=== PATIENT | male | born 1940 | race Caucasian/White ===

== ENCOUNTER → 2017-08-28 14:05 | Outpatient (CLI) | payer MEDICARE, BC, SELFPAY ==
[2017-08-28 19:21] LABS: Adenovirus F 40/41 Not Detected (Not Detect); Astrovirus Not Detected (Not Detect); Campylobacter Not Detected (Not Detect); Clostridium difficile toxin AB Not Detected (Not Detect); Cryptosporidium Not Detected (Not Detect); Cyclospora cayetanensis Not Detected (Not Detect); Entamoeba histolytica Not Detected (Not Detect); Enteroaggregative E.coli Not Detected (Not Detect); Enteropathogenic E.coli Not Detected (Not Detect); Enterotoxigenic E.coli It/st Not Detected (Not Detect); Giardia lamblia Not Detected (Not Detect); Norovirus GI/GII Not Detected (Not Detect); Plesiomonsa shigelloides Not Detected (Not Detect); Rotavirus A Not Detected (Not Detect); Salmonella Not Detected (Not Detect); Shiga-like toxin-prod E.coli Not Detected (Not Detect); Shigella/Enteroinvasive E.coli Not Detected (Not Detect); Vibrio Not Detected (Not Detect); Vibrio cholerae Not Detected (Not Detect); Yersinia enterocolitica Not Detected (Not Detect)
[2017-08-28 19:22] LABS: Sapovirus Not Detected
== END ==
PROVIDERS: Family Provider Internal Medicine; PCP Internal Medicine; Visit Provider Internal Medicine
DX: R19.7 Diarrhea, unspecified (principal)
CPT/HCPCS: 87507

== ENCOUNTER → 2017-08-29 11:15 | Outpatient (CLI) | payer MEDICARE, BC, SELFPAY ==
[2017-08-29 12:05] LABS: Add Manual Diff / Slide Review NO; Basophils Percent Auto 1.1 % (0-2); Eosinophils Percent Auto 2.3 % (2-4); Hematocrit 38.7 % (41-53); Lymphocytes Percent Auto 29.9 % (25-40); Mean Corpuscular HGB Conc 33.6 % (30-36); Mean Corpuscular Hemoglobin 31.8 PG (26-34); Mean Corpuscular Volume 94.7 fL (80-100); Monocytes Percent Auto 8.6 % (3-14); Neutrophils Absolute Auto 4100 /uL (3000-5900); Neutrophils Percent Auto 58.1 % (50-75); Platelet Count 179 X10^3/uL (150-400); Red Blood Cell Count 4.09 X10^6/uL (4.5-5.9); Red Cell Distribution Width 14.2 % (11.6-14.8)
[2017-08-29 12:19] LABS: Erythrocyte Sedimentation Rate 31 MM/HR (0-15)
[2017-08-29 12:57] LABS: Alanine Aminotransferase 24 IU/L (21-72); Albumin 3.8 g/dL (3.5-5.0); Albumin Globulin Ratio 1.3 (1.0-2.8); Alkaline Phosphatase 56 U/L (38-126); Aspartate Aminotransferase 23 IU/L (17-59); BUN Creatinine Ratio 19.1 (6-22); Blood Urea Nitrogen 21 mg/dL (9-20); C-Reactive Protein Quant 0.7 mg/dL (<1.0); Calcium 9.3 mg/dL (8.4-10.2); Carbon Dioxide 24 mmol/L (22-32); Chloride 109 mmol/L (98-107); Estimated Glomerular Filt Rate > 60.0 mL/min (>60); Glucose 98 mg/dL (80-110); HEMOLYSIS < 15 (0-50); Potassium 5.2 mmol/L (3.4-5.1); Sodium 144 mmol/L (137-145); Total Protein 6.8 g/dL (6.3-8.2)
== END ==
PROVIDERS: Family Provider Internal Medicine; PCP Internal Medicine; Visit Provider Internal Medicine
DX: R19.7 Diarrhea, unspecified (principal)
CPT/HCPCS: 36415; 80053; 84443; 85025; 85651; 86140

== ENCOUNTER 2017-09-20 11:59 | Emergency (ER) | payer MEDICARE, BC, SELFPAY ==
--- NOTE | 2017-09-20 12:04 | ED.LOWEXIN ---
HPI - Extremity Injury (Lower) <RAYA Conroy - Last Filed: 09/20/17 22:22> General Chief Complaint: Extremity Injury, Lower Stated Complaint: FELL YESTERDAY, SWOLLEN AND PAINFUL LEFT KNEE Time Seen by Provider: 09/20/17 12:09 History of Present Illness HPI Narrative: 77-year-old male with history of bilateral knee replacements here for of pain and swelling to his left knee. He states that he had a ground level fall yesterday when he was watering the garden accidentally tripping on the hose. He states that he fell on the the left knee with impact to the anterior lateral aspect and that he twisted the left knee when he fell. He denies any other injuries or complaints. Increased pain with motion of the left knee. He is currently using a cane to ambulate. MD complaint: knee injury Related Data Home Medications Medication Instructions Recorded Confirmed magnesium oxide 400 mg PO Q DAY #0 12/25/15 09/06/17 multivitamin [Multiple Vitamins] PO Q DAY #0 12/25/15 09/06/17 spironolacton-hydrochlorothiaz 1 tab PO QDAY #0 12/17/16 09/06/17 [Aldactazide] Previous Rx's Medication Instructions Recorded pantoprazole [Protonix] 40 mg PO BID #60 tab 08/04/17 gabapentin [Neurontin] 600 mg PO HS #30 tab 08/18/17 Allergies Allergy/AdvReac Type Severity Reaction Status Date / Time diphenhydramine Allergy Mild DISORIENTATION Verified 09/06/17 18:49 [From BENADRYL] AND CONFUSION oxycodone [OXYCODONE] Allergy Mild Verified 09/06/17 18:49 Review of Systems <RAYA Conroy - Last Filed: 09/20/17 22:22> Constitutional Denies chills, Denies fever(s), Denies lethargy and Denies weakness Eyes Denies change in vision, Denies eye discharge, Denies irritation and Denies loss of vision ENT Ears, Nose, Mouth, and Throat: Denies change in voice, Denies neck pain and Denies sore throat Cardiovascular Denies chest pain, Denies irregular heart rhythm, Denies lightheadedness, Denies palpitations, Denies dyspnea, Denies dyspnea on exertion and Denies orthopnea Respiratory Denies cough, Denies dyspnea, Denies dyspnea on exertion and Denies wheezing Gastrointestinal Gastrointestinal: Denies abdominal pain, Denies change in bowel habits, Denies diarrhea, Denies nausea and Denies vomiting Genitourinary Denies hematuria, Denies flank pain, Denies urinary incontinence and Denies urinary urgency Musculoskeletal Denies neck pain Comments: Left knee pain and swelling Integumentary/Breasts Denies pruritus, Denies erythema, Denies rash and Denies wounds Neurologic Denies confusion, Denies loss of vision and Denies weakness Psychiatric Denies anxiety, Denies confusion, Denies depression, Denies homicidal ideation and Denies suicidal ideation Endocrine Denies palpitations Hematologic/Lymphatic Denies easy bruising Allergic/Immunologic Denies wheezing Exam <RAYA Conroy - Last Filed: 09/20/17 22:22> Initial Vital Signs Initial Vital Signs: Vital Signs Temperature 97.3 F L 09/20/17 12:07 Pulse Rate 71 09/20/17 12:07 Respiratory Rate 20 09/20/17 12:07 Blood Pressure 145/72 H 09/20/17 12:07 Pulse Oximetry 95 09/20/17 12:07 Const General: cooperative and well developed Nutritional Appearance: well nourished Orientation: alert, awake, oriented x3 and not confused [facility] Mouth: oral mucosae normal and moist mucous membranes Eyes Conjunctivae: conjunctivae normal Sclera: sclerae normal Pupils: PERRL EOM: EOM intact bilaterally Resp Effort & Inspection: normal respiratory effort, able to speak in complete sentences, no respiratory distress and no use of accessory muscles Auscultation: clear to auscultation bilaterally, no rales, no rhonchi and no wheezes Cardio Rate: regular rate Rhythm: regular rhythm Heart Sounds: no click, no gallops, no murmurs and no rubs Pulses: normal peripheral pulses Skin General: no rashes or lesions noted, No jaundice and No petechiae Neuro General: alert, oriented x3, gait normal and no focal motor deficits Speech: speech normal Extrem Other: Swelling to the anterior portion of the left knee. No other deformities. No ecchymosis no erythema distal sensation is intact. Distal pulses intact. Distal range of motion is intact. Decreased range of motion to left knee due to pain. Negative anterior and posterior drawer sign negative varus and valgus stress test <Trever Stein DO - Last Filed: 09/21/17 07:28> Initial Vital Signs Initial Vital Signs: Vital Signs Temperature 97.3 F L 09/20/17 12:07 Pulse Rate 71 09/20/17 12:07 Respiratory Rate 20 09/20/17 12:07 Blood Pressure 145/72 H 09/20/17 12:07 Pulse Oximetry 95 09/20/17 12:07 Course <RAYA Conroy - Last Filed: 09/20/17 22:22> Orders Ordered: Discontinued Medications Acetaminophen (Tylenol) 650 mg PO NOW ONE Stop: 09/20/17 12:14 Last Admin: 09/20/17 12:27 Dose: 650 mg Vital Signs - 8 hr 09/20/17 12:07 Temperature 97.3 F L Pulse Rate 71 Respiratory Rate 20 Blood Pressure 145/72 H Pulse Oximetry 95 <Trever Stein DO - Last Filed: 09/21/17 07:28> Orders Ordered: Discontinued Medications Acetaminophen (Tylenol) 650 mg PO NOW ONE Stop: 09/20/17 12:14 Last Admin: 09/20/17 12:27 Dose: 650 mg Vital Signs - 8 hr 09/20/17 12:07 Temperature 97.3 F L Pulse Rate 71 Respiratory Rate 20 Blood Pressure 145/72 H Pulse Oximetry 95 MDM - Extremity Injury (Lower) <RAYA Conroy - Last Filed: 09/20/17 22:22> Imaging Data knee: Radiologist's impression: Patient: Edward Hernandez MR#: [id number] : 1940 Acct:[id number] Age/Sex: 77 / M Date of Service: 09/20/17 Loc: ED Accession Number: [id number] Procedure: XR knee LT 3V Ordering Provider: Rocco De La Cruz PROCEDURE: XR KNEE LT 3V INDICATIONS: Pain and swelling to left knee after glf yesterday TECHNIQUE: 3 views of the knee were acquired. COMPARISON: None. FINDINGS: Bones: No fractures or dislocations. Left total knee arthroplasty is intact. No suspicious bony lesions. Soft tissues: No joint effusion. No suspicious soft tissue calcifications. Surgical clips are present in the posterior soft tissues are IMPRESSION: No acute radiographic findings. If pain persists, repeat study in 5-7 days is recommended to exclude occult fracture. Dictated by: Nohelia Coles M.D. on 09/20/2017 at 12:45 Approved by: Nohelia Coles M.D. on 09/20/2017 at 12:[address] [facility] Narrative Medical decision making narrative: X-ray the left knee was obtained was negative for any acute findings. Signs and symptoms presents as sprain/contusion of the left knee. Offered knee immobilizer to patient patient refused. Follow up with primary care provider in 1 week for re-evaluation. If continued pain recommend reimaging or advanced imaging of the knee. [id number] Tylenol as needed for any discomfort. Ice and elevation to help with swelling for any worsening symptoms return to the emergency room. Discharge Plan Departure Patient Disposition: Home, Self-Care Clinical Impression: Left knee sprain Discharge Date/Time: 09/20/17 13:13 Interventions: ED Discharge Assessment Last Done: 09/20/17 13:11 Instructions: DI for Knee Sprain Activity Restrictions/Additional Instructions: X-ray the left knee was obtained was negative for any acute findings. Signs and symptoms presents as sprain/contusion of the left knee. Use cane to help with ambulation. Follow up with primary care provider in 1 week for re-evaluation. If continued pain recommend reimaging or advanced imaging of the knee. [id number] Tylenol as needed for any discomfort. Ice and elevation to help with swelling for any worsening symptoms return to the emergency room. Prescriptions: No Action multivitamin [Multiple Vitamins] Tablet PO Q DAY Qty: 0 RF: 0 magnesium oxide 400 MG tablet 400 mg PO Q DAY Qty: 0 RF: 0 spironolacton-hydrochlorothiaz [Aldactazide] 25 MG/25 MG tablet 1 tab PO QDAY Qty: 0 RF: 0 pantoprazole [Protonix] 40 mg tablet,delayed release (DR/EC) 40 mg PO BID Qty: 60 RF: 3 gabapentin [Neurontin] 600 mg tablet 600 mg PO HS Qty: 30 RF: 3 Referrals: Emir Moya MD [Primary Care Provider] - <Trever Stein DO - Last Filed: 09/21/17 07:28> Cosign ED Attending Alaina Attestation: I was available for consultation during this patient's emergency department encounter
[2017-09-20 12:07] VITALS: BP 145/72; PULSE 71; RESP 20; TEMP 36.3; O2SAT 95
--- NOTE | 2017-09-20 12:13 | DI.RAD.S_ITS ---
PROCEDURE: XR KNEE LT 3V INDICATIONS: Pain and swelling to left knee after glf yesterday TECHNIQUE: 3 views of the knee were acquired. COMPARISON: None. FINDINGS: Bones: No fractures or dislocations. Left total knee arthroplasty is intact. No suspicious bony lesions. Soft tissues: No joint effusion. No suspicious soft tissue calcifications. Surgical clips are present in the posterior soft tissues are IMPRESSION: No acute radiographic findings. If pain persists, repeat study in 5-7 days is recommended to exclude occult fracture. Dictated by: Nohelia Coles M.D. on 09/20/2017 at 12:45 Approved by: Nohelia Coles M.D. on 09/20/2017 at 12:46
--- NOTE | 2017-09-20 12:22 | ED_ITS ---
HPI - Extremity Injury (Lower) <RAYA Conroy - Last Filed: 09/20/17 22:22> General Chief Complaint: Extremity Injury, Lower Stated Complaint: FELL YESTERDAY, SWOLLEN AND PAINFUL LEFT KNEE Time Seen by Provider: 09/20/17 12:09 History of Present Illness HPI Narrative: 77-year-old male with history of bilateral knee replacements here for of pain and swelling to his left knee. He states that he had a ground level fall yesterday when he was watering the garden accidentally tripping on the hose. He states that he fell on the the left knee with impact to the anterior lateral aspect and that he twisted the left knee when he fell. He denies any other injuries or complaints. Increased pain with motion of the left knee. He is currently using a cane to ambulate. MD complaint: knee injury Related Data Home Medications Medication Instructions Recorded Confirmed magnesium oxide 400 mg PO Q DAY #0 12/25/15 09/06/17 multivitamin [Multiple Vitamins] PO Q DAY #0 12/25/15 09/06/17 spironolacton-hydrochlorothiaz 1 tab PO QDAY #0 12/17/16 09/06/17 [Aldactazide] Previous Rx's Medication Instructions Recorded pantoprazole [Protonix] 40 mg PO BID #60 tab 08/04/17 gabapentin [Neurontin] 600 mg PO HS #30 tab 08/18/17 Allergies Allergy/AdvReac Type Severity Reaction Status Date / Time diphenhydramine Allergy Mild DISORIENTATION Verified 09/06/17 18:49 [From BENADRYL] AND CONFUSION oxycodone [OXYCODONE] Allergy Mild Verified 09/06/17 18:49 Review of Systems <RAYA Conroy - Last Filed: 09/20/17 22:22> Constitutional Denies chills, Denies fever(s), Denies lethargy and Denies weakness Eyes Denies change in vision, Denies eye discharge, Denies irritation and Denies loss of vision ENT Ears, Nose, Mouth, and Throat: Denies change in voice, Denies neck pain and Denies sore throat Cardiovascular Denies chest pain, Denies irregular heart rhythm, Denies lightheadedness, Denies palpitations, Denies dyspnea, Denies dyspnea on exertion and Denies orthopnea Respiratory Denies cough, Denies dyspnea, Denies dyspnea on exertion and Denies wheezing Gastrointestinal Gastrointestinal: Denies abdominal pain, Denies change in bowel habits, Denies diarrhea, Denies nausea and Denies vomiting Genitourinary Denies hematuria, Denies flank pain, Denies urinary incontinence and Denies urinary urgency Musculoskeletal Denies neck pain Comments: Left knee pain and swelling Integumentary/Breasts Denies pruritus, Denies erythema, Denies rash and Denies wounds Neurologic Denies confusion, Denies loss of vision and Denies weakness Psychiatric Denies anxiety, Denies confusion, Denies depression, Denies homicidal ideation and Denies suicidal ideation Endocrine Denies palpitations Hematologic/Lymphatic Denies easy bruising Allergic/Immunologic Denies wheezing Exam <RAYA Conroy - Last Filed: 09/20/17 22:22> Initial Vital Signs Initial Vital Signs: Vital Signs Temperature 97.3 F L 09/20/17 12:07 Pulse Rate 71 09/20/17 12:07 Respiratory Rate 20 09/20/17 12:07 Blood Pressure 145/72 H 09/20/17 12:07 Pulse Oximetry 95 09/20/17 12:07 Const General: cooperative and well developed Nutritional Appearance: well nourished Orientation: alert, awake, oriented x3 and not confused [facility] Mouth: oral mucosae normal and moist mucous membranes Eyes Conjunctivae: conjunctivae normal Sclera: sclerae normal Pupils: PERRL EOM: EOM intact bilaterally Resp Effort & Inspection: normal respiratory effort, able to speak in complete sentences, no respiratory distress and no use of accessory muscles Auscultation: clear to auscultation bilaterally, no rales, no rhonchi and no wheezes Cardio Rate: regular rate Rhythm: regular rhythm Heart Sounds: no click, no gallops, no murmurs and no rubs Pulses: normal peripheral pulses Skin General: no rashes or lesions noted, No jaundice and No petechiae Neuro General: alert, oriented x3, gait normal and no focal motor deficits Speech: speech normal Extrem Other: Swelling to the anterior portion of the left knee. No other deformities. No ecchymosis no erythema distal sensation is intact. Distal pulses intact. Distal range of motion is intact. Decreased range of motion to left knee due to pain. Negative anterior and posterior drawer sign negative varus and valgus stress test <Trever Stein DO - Last Filed: 09/21/17 07:28> Initial Vital Signs Initial Vital Signs: Vital Signs Temperature 97.3 F L 09/20/17 12:07 Pulse Rate 71 09/20/17 12:07 Respiratory Rate 20 09/20/17 12:07 Blood Pressure 145/72 H 09/20/17 12:07 Pulse Oximetry 95 09/20/17 12:07 Course <RAYA Conroy - Last Filed: 09/20/17 22:22> Orders Ordered: Discontinued Medications Acetaminophen (Tylenol) 650 mg PO NOW ONE Stop: 09/20/17 12:14 Last Admin: 09/20/17 12:27 Dose: 650 mg Vital Signs - 8 hr 09/20/17 12:07 Temperature 97.3 F L Pulse Rate 71 Respiratory Rate 20 Blood Pressure 145/72 H Pulse Oximetry 95 <Trever Stein DO - Last Filed: 09/21/17 07:28> Orders Ordered: Discontinued Medications Acetaminophen (Tylenol) 650 mg PO NOW ONE Stop: 09/20/17 12:14 Last Admin: 09/20/17 12:27 Dose: 650 mg Vital Signs - 8 hr 09/20/17 12:07 Temperature 97.3 F L Pulse Rate 71 Respiratory Rate 20 Blood Pressure 145/72 H Pulse Oximetry 95 MDM - Extremity Injury (Lower) <RAYA Conroy - Last Filed: 09/20/17 22:22> Imaging Data knee: Radiologist's impression: Patient: Edward Hernandez MR#: [id number] : 1940 Acct:[id number] Age/Sex: 77 / M Date of Service: 09/20/17 Loc: ED Accession Number: [id number] Procedure: XR knee LT 3V Ordering Provider: Rocco De La Cruz PROCEDURE: XR KNEE LT 3V INDICATIONS: Pain and swelling to left knee after glf yesterday TECHNIQUE: 3 views of the knee were acquired. COMPARISON: None. FINDINGS: Bones: No fractures or dislocations. Left total knee arthroplasty is intact. No suspicious bony lesions. Soft tissues: No joint effusion. No suspicious soft tissue calcifications. Surgical clips are present in the posterior soft tissues are IMPRESSION: No acute radiographic findings. If pain persists, repeat study in 5 -7 days is recommended to exclude occult fracture. Dictated by: Nohelia Coles M.D. on 09/20/2017 at 12:45 Approved by: Nohelia Coles M.D. on 09/20/2017 at 12:46 [facility] Narrative Medical decision making narrative: X-ray the left knee was obtained was negative for any acute findings. Signs and symptoms presents as sprain/ contusion of the left knee. Offered knee immobilizer to patient patient refused. Follow up with primary care provider in 1 week for re-evaluation. If continued pain recommend reimaging or advanced imaging of the knee. Over-the- counter Tylenol as needed for any discomfort. Ice and elevation to help with swelling for any worsening symptoms return to the emergency room. Discharge Plan Departure Patient Disposition: Home, Self-Care Clinical Impression: Left knee sprain Discharge Date/Time: 09/20/17 13:13 Interventions: ED Discharge Assessment Last Done: 09/20/17 13:11 Instructions: DI for Knee Sprain Activity Restrictions/Additional Instructions: X-ray the left knee was obtained was negative for any acute findings. Signs and symptoms presents as sprain/contusion of the left knee. Use cane to help with ambulation. Follow up with primary care provider in 1 week for re- evaluation. If continued pain recommend reimaging or advanced imaging of the knee. [id number] Tylenol as needed for any discomfort. Ice and elevation to help with swelling for any worsening symptoms return to the emergency room. Prescriptions: No Action multivitamin [Multiple Vitamins] Tablet PO Q DAY Qty: 0 RF: 0 magnesium oxide 400 MG tablet 400 mg PO Q DAY Qty: 0 RF: 0 spironolacton-hydrochlorothiaz [Aldactazide] 25 MG/25 MG tablet 1 tab PO QDAY Qty: 0 RF: 0 pantoprazole [Protonix] 40 mg tablet,delayed release (DR/EC) 40 mg PO BID Qty: 60 RF: 3 gabapentin [Neurontin] 600 mg tablet 600 mg PO HS Qty: 30 RF: 3 Referrals: Emir Moya MD [Primary Care Provider] - <Trever Stein DO - Last Filed: 09/21/17 07:28> Cosign ED Attending Alaina Attestation: I was available for consultation during this patient's emergency department encounter
[2017-09-20] MEDS: ACETAMINOPHEN 325 MG TABLET 650 MG PO (12:27)
[2017-09-20 13:11] VITALS: BP 114/60; PULSE 60; RESP 18; O2SAT 96
== END 2017-09-20 13:13 | disposition home or self-care (01) ==
PROVIDERS: Emergency Provider Nurse Practitioner Family; Family Provider Internal Medicine; PCP Internal Medicine
DX: S83.92XA Sprain of unspecified site of left knee, initial encounter (principal); W01.0XXA Fall on same level from slipping, tripping and stumbling without subsequent striking against object, initial encounter
CPT/HCPCS: 73562; 99282; 99283

== ENCOUNTER 2018-04-14 10:30 | Outpatient (RCR) | payer MEDICARE, BC, SELFPAY ==
--- NOTE | 2018-08-12 18:00 | ST.OPDS ---
Care Team Visit Care Team Role Provider Type Emir Moya MD Attending Provider Physician Primary Care Provider Address: [address] [place] [address], [id number] [employer] Treatment Note [employer] Treatment Note Start: 03/03/18 17:12 Freq: Status: Active Protocol: Document 08/12/18 17:58 SOLO (Rec: 08/12/18 18:00 SOLO [email or web address]) Speech Pathology Treatment Note Visit Type Note Type Discharge Summary General Information General Information 78-yr-old male attended Speech Therapy for evaluation and treatment of aphasia and dementia, which was diagnosed 02/04/18 following neuropsychological evaluation by Dr. Makayla Almanzar Psy.D. Dr Bryanna Almanzar's report indicates Major neurocognitive disorder, possibly due to Alzheimer's disase, vascular disease, and/ or primary progressive aphasia . Among Dr. Almanzar's recommendations was referral to Speech Pathology for further language evaluation and treatment. However, the treatment/tools may be more directed toward his regarding how to facilitate their communication and may not be very useful with respect to exercises to restore Mr. Hernandez's communication abilities given his memory problems. PMHx: Coronary artery disease, essential hypertension, permanent pacemaker, idiopathic peripheral neuropathy, mixed hyperlipidemia, spinal stenosis, and stent in anterior descending branch of left coronary artery. Per pt/spouse report, the pt had a heart attack in Sep 2014 and subsequent stent placement and successful cardio rehab. The pt had quadruple bypass surgery in July 2015 and pacemaker placement in May 2016. They report marked changes in memory and cognition following heart procedures. Subjective Observations/Patient Presentation The pt was last seen 04/14/18. Minimal progress was made during skilled intervention. The pt stopped attending sessions and is discharged from intervention at this time .
== END 2018-08-21 10:39 | disposition home or self-care (01) ==
LOC: SP 10:30
PROVIDERS: PCP Internal Medicine; Visit Provider Internal Medicine
DX: R47.01 Aphasia (principal); R41.89 Other symptoms and signs involving cognitive functions and awareness
CPT/HCPCS: 96125

== ENCOUNTER 2018-06-25 11:15 | Outpatient (RCR) | payer MEDICARE, BC, SELFPAY ==
--- NOTE | 2018-02-26 11:15 | PT.OIE ---
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 (Chronic 12/01/14) Presence of stent in anterior descending branch of left coronary artery (Chronic 12/01/14) Spinal stenosis of lumbar region (Chronic 01/29/11) Elevated prostate specific antigen (PSA) (Chronic 06/18/16) History of permanent cardiac pacemaker placement (Chronic 06/18/16) History of deep venous thrombosis in adulthood (Resolved 07/16/16) Idiopathic peripheral neuropathy (Chronic 12/17/16) Systolic heart failure (Resolved) Past Surgical History (Last Reviewed 01/09/18 @ 12:21 by Emir Moya MD) History of carpal tunnel repair (Resolved) History of left knee replacement (Resolved 2009) History of right knee joint replacement (Resolved 2008) History of umbilical hernia repair (Resolved) 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) Status post laminectomy (Resolved) History of knee replacement Provider Visit Care Team Role Provider Type Emir Moya MD Attending Provider Physician Primary Care Provider Specialty: Internal Medicine Address: [address] [place] [address], [facility] Email: [email or web address] Physical Therapy Initial Evaluation PT-OP-A Visit Information Start: 03/01/18 16:29 Freq: Status: Active Protocol: Document 02/26/18 11:15 RCC (Rec: 03/01/18 16:54 RCC [email or web address]) Out-Patient Physical Therapy Visit Information Visit Information Visit Type Initial Evaluation Visit Start Time 10:30 Visit Stop Time 11:15 Total Visit Minutes 45 Visit Number 1 Number of RHEOSTAT ASSEMBLER Visits 0 Evaluation Information Evaluation Date 02/26/18 PT-OP-B Current Condition Start: 03/01/18 16:29 Freq: Status: Active Protocol: Document 02/26/18 11:15 RCC (Rec: 03/01/18 16:54 RCC [email or web address]) Current Condition History of Current Condition Onset Date progressively worsening over the past year Current Complaints weakness, difficulty with walking, imbalance History of Current Condition Pt is a 78 y/o male presenting to physical therapy with a c/ o progressive weakness and numbness due to neuropathy in bilateral feet which has decrease his ability to balance and ambulate outdoors. Pt's presents today with the pt, stating that he is having more difficulty walking outside. He had a fall at home in August of 2017 with increased LE pain. Pt would like to improve his walking ability to be able to take his dog to the dog park and walk for >10 minutes without high levels of fatigue. Treatment Goals Patient/Caregiver Goals be able to walk >10 min at a time, improve balance and strength Prior Functional Status Baseline Function- Gait modified indep. gait outdoors to dog park from home-10-15 min walk outside Current Functional Impairments (Reported) Functional Limitations- Mobility/Gait requires prolonged rest after ambulating <10 min, difficulty with uneven terrain. Personal Factors Other Personal Factors That May Effect memory impairment, hearing Therapy/Recovery impairment, progressing neuropathy BLE PT-OP-C Subjective Start: 03/01/18 16:29 Freq: Status: Active Protocol: Document 02/26/18 11:15 RCC (Rec: 03/01/18 16:54 [facility] [email or web address]) Patient Questionnaires Lower Extremity Functional Scale LEFS Score 37 LEFS Impairment 40 to 59% Impaired (Score 32- 47) PT-OP-D Balance Start: 03/01/18 16:29 Freq: Status: Active Protocol: Document 02/26/18 11:15 RCC (Rec: 03/01/18 16:54 [facility] [email or web address]) Balance Tests Semi-Tandem Standing Semi-Tandem Standing Balance 1 sec R posterior, 2 sec L posterior PT-OP-E Functional Tests Start: 03/01/18 16:29 Freq: Status: Active Protocol: Document 02/26/18 11:15 RCC (Rec: 03/01/18 16:54 RCC [email or web address]) Functional Tests 6 Minute Walk Test Distance 823 ft Device Used none Dynamic Gait Index (DGI) Score 13 DGI Impairment Rating 40 to <60% Impaired (Score 10- 14) PT-OP-G Mobility & Gait Start: 03/01/18 16:29 Freq: Status: Active Protocol: Document 02/26/18 11:15 RCC (Rec: 03/01/18 16:54 RCC [email or web address]) OP Gait Assessment Gait Deviations General Gait Pattern Decreased Stride Length Decreased Feet Clearance Flexed Trunk Wide Based Gait Factors Limiting Gait Function Factors Limiting Gait Function Decreased Activity Tolerance Decreased Sensation Decreased Strength Poor Balance PT-OP-H Neuro Start: 03/01/18 16:29 Freq: Status: Active Protocol: Document 02/26/18 11:15 RCC (Rec: 03/01/18 16:54 [facility] [email or web address]) Sensation Evaluation Comments Summary Comments impaired bilateral lower calf to feet PT-OP-J Posture/Palpation/Skin Start: 03/01/18 16:29 Freq: Status: Active Protocol: Document 02/26/18 11:15 RCC (Rec: 03/01/18 16:54 [facility] [email or web address]) Skin Assessment Other Assessments Skin Assessment Comments purplish color bilateral feet; callus lateral plantar surface 5th MT (closed) L foot PT-OP-M Strength Start: 03/01/18 16:29 Freq: Status: Active Protocol: Document 02/26/18 11:15 RCC (Rec: 03/01/18 16:54 [facility] [email or web address]) Hip Strength Hip Manual Muscle Testing Right Flexion (L2) 4 Good External Rotation 3+ Fair+ Internal Rotation 4 Good Left Flexion (L2) 4 Good External Rotation 3+ Fair+ Internal Rotation 4 Good Knee Strength Knee Manual Muscle Testing Right Flexion (S2) 4 Good Extension (L3) 5 Normal Left Flexion (S2) 4 Good Extension (L3) 4 Good Ankle/Foot Strength Ankle and Foot Manual Muscle Testing Right Dorsiflexion (L4) 4 Good Inversion 4 Good Eversion (S1) 3+ Fair+ Left Dorsiflexion (L4) 3+ Fair+ Inversion 3+ Fair+ Eversion (S1) 3+ Fair+ PT-OP-T Assessment and Plan Start: 03/01/18 16:29 Freq: Status: Active Protocol: Document 02/26/18 11:15 RCC (Rec: 03/01/18 16:54 RCC [email or web address]) Physical Therapy Assessment Rehab Potential Rehabilitation Potential Good Evaluation Complexity Number of Personal Factors/Comorbidities 3 or More Number of Body Systems Impaired 4 or More Clinical Presentation at Evaluation Evolving Impairments Impairments Activity Tolerance Balance Functional Activities Functional Mobility Gait Sensation Strength Goals Home exercise- walking program Impairment limited ability to ambulate outdoors. Sample Worker Goal (LTG) Pt will participate in daily ambulation outdoors on uneven terrain for at least 15 min to perform recreational activities such as taking/ walking his do to/from the dog park. LTG Duration 12 weeks 6 Minute Walk Test Impairment 823 ft Short Term Goal (STG) 950 ft or greater with 6 Minute Walk Test to demonstrate improvements with gait tolerance. STG Duration 6 weeks Usp Goal (LTG) 1100 ft or greater with 6 Minute Walk Test to demonstrate improvements with gait tolerance. LE weakness Impairment LE weakness to manual muscle testing (MMT) Usp Goal (LTG) LE MMT grossly 4+/5 or greater to improve tolerance to ambulating on uneven terrain. LTG Duration 12 weeks DGI Impairment Dynamic Gait Index 13/24 Short Term Goal (STG) Score of at least 16/24 with the DGI to demonstrate improvements with functional gait and balance STG Duration 6 weeks Usp Goal (LTG) Score of at least 19/24 with the DGI to demonstrate improvements with functional gait and balance, and decrease fall risk LTG Duration 12 weeks Assessment Summary Assessment Pt presents with bilateral LE weakness, numbness (neuropathy ), and impaired activity tolerance and balance. Pt's 6 Minute Walk Test is significantly limited, demonstrating decreased gait speed and activity tolerance, and is at high risk for falls with a score of 13/24 on the Dynamic Gait Index. Pt and spouse educated on safety at home and with ambulation, as well as the importance of daily checks of skin integrity of his bilateral feet. Pt would greatly benefit from skilled outpatient physical therapy to progress his balance, decrease fall risk, improve gait speed and activity tolerance, and LE strength. Physical Therapy Plan Frequency and Duration Frequency of Treatment 2x/Week Duration of Treatment 12 weeks Plan of Care Start Date 02/26/18 Plan of Care End Date 05/21/18 Therapeutic Interventions Therapeutic Interventions Aquatic Therapy Balance Training Gait Training Home Exercise Program Manual Therapy Neuromuscular Re-education Orthotic/Prosthetic Management Patient/Caregiver Education Self-Care/Home Management Therapeutic Activities Therapeutic Exercises Next Visit Focus/Plan Next Note Type Treatment Note Next Visit Plan ankle strengthening for HEP, standing balance for HEP; gait training.
--- NOTE | 2018-02-26 11:15 | PT.OPPOC ---
Current Diagnoses Polyneuropathy, unspecified (02/26/18) Other abnormalities of gait and mobility (02/26/18) Provider Visit Care Team Role Provider Type Emir Moya MD Attending Provider Physician Primary Care Provider Specialty: Internal Medicine Address: [address] [place] [address], [id number] Email: [email or web address] Plan Of Care PT-OP-T Assessment and Plan Start: 03/01/18 16:29 Freq: Status: Active Protocol: Document 02/26/18 11:15 RCC (Rec: 03/01/18 16:54 RCC [email or web address]) Physical Therapy Assessment Rehab Potential Rehabilitation Potential Good Evaluation Complexity Number of Personal Factors/Comorbidities 3 or More Number of Body Systems Impaired 4 or More Clinical Presentation at Evaluation Evolving Impairments Impairments Activity Tolerance Balance Functional Activities Functional Mobility Gait Sensation Strength Goals Home exercise- walking program Impairment limited ability to ambulate outdoors. Longterm Goal (LTG) Pt will participate in daily ambulation outdoors on uneven terrain for at least 15 min to perform recreational activities such as taking/ walking his do to/from the dog park. LTG Duration 12 weeks 6 Minute Walk Test Impairment 823 ft Short Term Goal (STG) 950 ft or greater with 6 Minute Walk Test to demonstrate improvements with gait tolerance. STG Duration 6 weeks Structured Cabling Technician Goal (LTG) 1100 ft or greater with 6 Minute Walk Test to demonstrate improvements with gait tolerance. LE weakness Impairment LE weakness to manual muscle testing (MMT) Structured Cabling Technician Goal (LTG) LE MMT grossly 4+/5 or greater to improve tolerance to ambulating on uneven terrain. LTG Duration 12 weeks DGI Impairment Dynamic Gait Index 13/24 Short Term Goal (STG) Score of at least 16/24 with the DGI to demonstrate improvements with functional gait and balance STG Duration 6 weeks Structured Cabling Technician Goal (LTG) Score of at least 19/24 with the DGI to demonstrate improvements with functional gait and balance, and decrease fall risk LTG Duration 12 weeks Assessment Summary Assessment Pt presents with bilateral LE weakness, numbness (neuropathy ), and impaired activity tolerance and balance. Pt's 6 Minute Walk Test is significantly limited, demonstrating decreased gait speed and activity tolerance, and is at high risk for falls with a score of 13/24 on the Dynamic Gait Index. Pt and spouse educated on safety at home and with ambulation, as well as the importance of daily checks of skin integrity of his bilateral feet. Pt would greatly benefit from skilled outpatient physical therapy to progress his balance, decrease fall risk, improve gait speed and activity tolerance, and LE strength. Physical Therapy Plan Frequency and Duration Frequency of Treatment 2x/Week Duration of Treatment 12 weeks Plan of Care Start Date 02/26/18 Plan of Care End Date 05/21/18 Therapeutic Interventions Therapeutic Interventions Aquatic Therapy Balance Training Gait Training Home Exercise Program Manual Therapy Neuromuscular Re-education Orthotic/Prosthetic Management Patient/Caregiver Education Self-Care/Home Management Therapeutic Activities Therapeutic Exercises Next Visit Focus/Plan Next Note Type Treatment Note Next Visit Plan ankle strengthening for HEP, standing balance for HEP; gait training. Plan of Care Dates Plan of Care Start Date 02/26/18 Plan of Care End Date 05/21/18 Please Sign and Return: I have reviewed this Plan of Care and certify that the skilled therapy services above are required to meet the patient?s needs. Physician Signature Date Printed Name and Credentials Clinical Instructor Signature Printed Name and Credentials
--- NOTE | 2018-03-04 12:00 | PT.OTN ---
Current Diagnoses Polyneuropathy, unspecified (03/04/18) Other abnormalities of gait and mobility (03/04/18) Physical Therapy Treatment Note PT-OP-A Visit Information Start: 03/01/18 16:29 Freq: Status: Active Protocol: Document 03/04/18 12:00 RCC (Rec: 03/04/18 13:39 RCC [email or web address]) Out-Patient Physical Therapy Visit Information Visit Information Visit Type Treatment Note Visit Start Time 11:16 Visit Stop Time 12:00 Total Visit Minutes 44 Visit Number 2 Number of CHILD NUTRITION ASSISTANT Visits 0 Evaluation Information Evaluation Date 02/26/18 PT-OP-B Current Condition Start: 03/01/18 16:29 Freq: Status: Active Protocol: Document 02/26/18 11:15 RCC (Rec: 03/01/18 16:54 RCC [email or web address]) Current Condition History of Current Condition Onset Date progressively worsening over the past year Current Complaints weakness, difficulty with walking, imbalance History of Current Condition Pt is a 78 y/o male presenting to physical therapy with a c/ o progressive weakness and numbness due to neuropathy in bilateral feet which has decrease his ability to balance and ambulate outdoors. Pt's presents today with the pt, stating that he is having more difficulty walking outside. He had a fall at home in August of 2017 with increased LE pain. Pt would like to improve his walking ability to be able to take his dog to the dog park and walk for >10 minutes without high levels of fatigue. Treatment Goals Patient/Caregiver Goals be able to walk >10 min at a time, improve balance and strength Prior Functional Status Baseline Function- Gait modified indep. gait outdoors to dog park from home-10-15 min walk outside Current Functional Impairments (Reported) Functional Limitations- Mobility/Gait requires prolonged rest after ambulating <10 min, difficulty with uneven terrain. Personal Factors Other Personal Factors That May Effect memory impairment, hearing Therapy/Recovery impairment, progressing neuropathy BLE PT-OP-C Subjective Start: 03/01/18 16:29 Freq: Status: Active Protocol: Document 03/04/18 12:00 RCC (Rec: 03/04/18 13:39 RCC [email or web address]) OP-PT Subjective Patient Comments Patient Comments Pt states he is doing well today. No new concerns. PT-OP-D Balance Start: 03/01/18 16:29 Freq: Status: Active Protocol: Document 02/26/18 11:15 RCC (Rec: 03/01/18 16:54 RCC [email or web address]) Balance Tests Semi-Tandem Standing Semi-Tandem Standing Balance 1 sec R posterior, 2 sec L posterior PT-OP-E Functional Tests Start: 03/01/18 16:29 Freq: Status: Active Protocol: Document 02/26/18 11:15 RCC (Rec: 03/01/18 16:54 [facility] [email or web address]) Functional Tests 6 Minute Walk Test Distance 823 ft Device Used none Dynamic Gait Index (DGI) Score 13 DGI Impairment Rating 40 to <60% Impaired (Score 10- 14) PT-OP-G Mobility & Gait Start: 03/01/18 16:29 Freq: Status: Active Protocol: Document 02/26/18 11:15 RCC (Rec: 03/01/18 16:54 RCC [email or web address]) OP Gait Assessment Gait Deviations General Gait Pattern Decreased Stride Length Decreased Feet Clearance Flexed Trunk Wide Based Gait Factors Limiting Gait Function Factors Limiting Gait Function Decreased Activity Tolerance Decreased Sensation Decreased Strength Poor Balance PT-OP-H Neuro Start: 03/01/18 16:29 Freq: Status: Active Protocol: Document 02/26/18 11:15 RCC (Rec: 03/01/18 16:54 RCC [email or web address]) Sensation Evaluation Comments Summary Comments impaired bilateral lower calf to feet PT-OP-J Posture/Palpation/Skin Start: 03/01/18 16:29 Freq: Status: Active Protocol: Document 02/26/18 11:15 RCC (Rec: 03/01/18 16:54 RCC [email or web address]) Skin Assessment Other Assessments Skin Assessment Comments purplish color bilateral feet; callus lateral plantar surface 5th MT (closed) L foot PT-OP-M Strength Start: 03/01/18 16:29 Freq: Status: Active Protocol: Document 02/26/18 11:15 RCC (Rec: 03/01/18 16:54 RCC [email or web address]) Hip Strength Hip Manual Muscle Testing Right Flexion (L2) 4 Good External Rotation 3+ Fair+ Internal Rotation 4 Good Left Flexion (L2) 4 Good External Rotation 3+ Fair+ Internal Rotation 4 Good Knee Strength Knee Manual Muscle Testing Right Flexion (S2) 4 Good Extension (L3) 5 Normal Left Flexion (S2) 4 Good Extension (L3) 4 Good Ankle/Foot Strength Ankle and Foot Manual Muscle Testing Right Dorsiflexion (L4) 4 Good Inversion 4 Good Eversion (S1) 3+ Fair+ Left Dorsiflexion (L4) 3+ Fair+ Inversion 3+ Fair+ Eversion (S1) 3+ Fair+ PT-OP-Q Treatments Start: 03/01/18 16:29 Freq: Status: Active Protocol: Document 03/04/18 12:00 RCC (Rec: 03/04/18 13:39 [facility] [email or web address]) Cardio Equipment Recumbent Elliptical (Biodex) Duration (Minutes) 6 Resistance 6 Gym Equipment Shuttle Balance 1 Details A/P normal stance, semi-tandem - perturbations and head mov't horiz and vert Reps/Duration 14 min Therapeutic Exercises Sitting Exercises 3 way ankle Sitting Exercise Name ankle DF, inv, eversion Side bilateral Resistance L1 eversion, L2 DF and inversion Reps/Minutes x10 each LE and direction Comments detailed discussion and demonstration with and pt during this time Neuro Re-Education Treatment Balance Activities NBOS Details narrow base of support Surface firm Reps/Duration 5 min Comments EO fixed head position, horizontal and vertical head movements Tandem standing Surface firm Equipment // bars Reps/Duration 3x30 sec each situation PT-OP-T Assessment and Plan Start: 03/01/18 16:29 Freq: Status: Active Protocol: Document 03/04/18 12:00 [facility] (Rec: 03/04/18 13:39 [facility] [email or web address]) Physical Therapy Assessment Assessment Summary Assessment Pt requires a decrease in resistance for ankle eversion bilaterally compared to DF and inversion. During balance training, pt required CGA with gait belt and occasional UE support due to loss of balance (especially with vertical head movements and perturbations). On firm ground , he tends to lose his balance posteriorly. Physical Therapy Plan Frequency and Duration Frequency of Treatment 2x/Week Duration of Treatment 12 weeks Plan of Care Start Date 02/26/18 Plan of Care End Date 05/21/18 Next Visit Focus/Plan Next Note Type Treatment Note Next Visit Plan progress standing balance- increase difficulty on Shuttle Balance, heel/toe walking, uneven surfaces with hurdles. Shuttle Recovery
--- NOTE | 2018-03-06 14:30 | PT.OTN ---
Current Diagnoses Polyneuropathy, unspecified (03/06/18) Other abnormalities of gait and mobility (03/06/18) Physical Therapy Treatment Note PT-OP-A Visit Information Start: 03/01/18 16:29 Freq: Status: Active Protocol: Document 03/06/18 14:30 [facility] (Rec: 03/07/18 15:10 [email or web address]) Out-Patient Physical Therapy Visit Information Visit Information Visit Type Treatment Note Visit Start Time 13:45 Visit Stop Time 14:30 Total Visit Minutes 45 Visit Number 3 Number of TERRA[employer]O POLISHER HELPER Visits 0 Evaluation Information Evaluation Date 02/26/18 PT-OP-B Current Condition Start: 03/01/18 16:29 Freq: Status: Active Protocol: Document 02/26/18 11:15 [facility] (Rec: 03/01/18 16:54 [facility] [email or web address]) Current Condition History of Current Condition Onset Date progressively worsening over the past year Current Complaints weakness, difficulty with walking, imbalance History of Current Condition Pt is a 78 y/o male presenting to physical therapy with a c/ o progressive weakness and numbness due to neuropathy in bilateral feet which has decrease his ability to balance and ambulate outdoors. Pt's presents today with the pt, stating that he is having more difficulty walking outside. He had a fall at home in August of 2017 with increased LE pain. Pt would like to improve his walking ability to be able to take his dog to the dog park and walk for >10 minutes without high levels of fatigue. Treatment Goals Patient/Caregiver Goals be able to walk >10 min at a time, improve balance and strength Prior Functional Status Baseline Function- Gait modified indep. gait outdoors to dog park from home-10-15 min walk outside Current Functional Impairments (Reported) Functional Limitations- Mobility/Gait requires prolonged rest after ambulating <10 min, difficulty with uneven terrain. Personal Factors Other Personal Factors That May Effect memory impairment, hearing Therapy/Recovery impairment, progressing neuropathy BLE PT-OP-C Subjective Start: 03/01/18 16:29 Freq: Status: Active Protocol: Document 03/06/18 14:30 [facility] (Rec: 03/07/18 15:10 [facility] [email or web address]) OP-PT Subjective Patient Comments Patient Comments Pt states that he tried to walk a little further today at the dog park, continues to require seated rest breaks. PT-OP-D Balance Start: 03/01/18 16:29 Freq: Status: Active Protocol: Document 02/26/18 11:15 [facility] (Rec: 03/01/18 16:54 [facility] [email or web address]) Balance Tests Semi-Tandem Standing Semi-Tandem Standing Balance 1 sec R posterior, 2 sec L posterior PT-OP-E Functional Tests Start: 03/01/18 16:29 Freq: Status: Active Protocol: Document 02/26/18 11:15 [facility] (Rec: 03/01/18 16:54 [facility] [email or web address]) Functional Tests 6 Minute Walk Test Distance 823 ft Device Used none Dynamic Gait Index (DGI) Score 13 DGI Impairment Rating 40 to <60% Impaired (Score 10- 14) PT-OP-G Mobility & Gait Start: 03/01/18 16:29 Freq: Status: Active Protocol: Document 02/26/18 11:15 [facility] (Rec: 03/01/18 16:54 [facility] [email or web address]) OP Gait Assessment Gait Deviations General Gait Pattern Decreased Stride Length Decreased Feet Clearance Flexed Trunk Wide Based Gait Factors Limiting Gait Function Factors Limiting Gait Function Decreased Activity Tolerance Decreased Sensation Decreased Strength Poor Balance PT-OP-H Neuro Start: 03/01/18 16:29 Freq: Status: Active Protocol: Document 02/26/18 11:15 [facility] (Rec: 03/01/18 16:54 [facility] [email or web address]) Sensation Evaluation Comments Summary Comments impaired bilateral lower calf to feet PT-OP-J Posture/Palpation/Skin Start: 03/01/18 16:29 Freq: Status: Active Protocol: Document 02/26/18 11:15 [facility] (Rec: 03/01/18 16:54 [facility] [email or web address]) Skin Assessment Other Assessments Skin Assessment Comments purplish color bilateral feet; callus lateral plantar surface 5th MT (closed) L foot PT-OP-M Strength Start: 03/01/18 16:29 Freq: Status: Active Protocol: Document 02/26/18 11:15 [facility] (Rec: 03/01/18 16:54 [facility] [email or web address]) Hip Strength Hip Manual Muscle Testing Right Flexion (L2) 4 Good External Rotation 3+ Fair+ Internal Rotation 4 Good Left Flexion (L2) 4 Good External Rotation 3+ Fair+ Internal Rotation 4 Good Knee Strength Knee Manual Muscle Testing Right Flexion (S2) 4 Good Extension (L3) 5 Normal Left Flexion (S2) 4 Good Extension (L3) 4 Good Ankle/Foot Strength Ankle and Foot Manual Muscle Testing Right Dorsiflexion (L4) 4 Good Inversion 4 Good Eversion (S1) 3+ Fair+ Left Dorsiflexion (L4) 3+ Fair+ Inversion 3+ Fair+ Eversion (S1) 3+ Fair+ PT-OP-Q Treatments Start: 03/01/18 16:29 Freq: Status: Active Protocol: Document 03/06/18 14:30 [facility] (Rec: 03/07/18 15:10 [facility] [email or web address]) Cardio Equipment Recumbent Elliptical (Biodex) Duration (Minutes) 8 Resistance 6 Gym Equipment Shuttle Recovery Unilateral Squats Resistance 50 lbs Shuttle Recovery Platform Stable Reps/Time to fatigue Bilateral Squats Resistance 75 lbs Shuttle Recovery Platform Stable Reps/Time to fatigue Shuttle Balance 1 Details A/P normal stance, semi-tandem - perturbations and head mov't horiz and vert Reps/Duration 15 min Comments blue setting Neuro Re-Education Treatment Other Activities balloon volley Details firm ground- balloon volley with UE and LEs Reps/Duration 6 min Comments in // bars hurdles Details hurdles with blue foam and black pod Reps/Duration 6 laps in // bars BAPS Details L3 CW/CCW, AP, ML Reps/Duration 10 min Comments manual assist to maintain proper knee alignment PT-OP-T Assessment and Plan Start: 03/01/18 16:29 Freq: Status: Active Protocol: Document 03/06/18 14:30 [facility] (Rec: 03/07/18 15:10 [facility] [email or web address]) Physical Therapy Assessment Assessment Summary Assessment Pt required manual assistance to maintain appropriate LE positioning on BAPS board, and continues to require visual input to know where his feet are in space. Pt fatigued after session, but able to tolerate increased time on Biodex and leg press without c /o pain. Physical Therapy Plan Frequency and Duration Frequency of Treatment 2x/Week Duration of Treatment 12 weeks Plan of Care Start Date 02/26/18 Plan of Care End Date 05/21/18 Next Visit Focus/Plan Next Note Type Treatment Note Next Visit Plan cont LE strengthening, proprioception and balance; progress toward getting on/off floor (transfer)
--- NOTE | 2018-03-11 14:27 | PT.OTN ---
Current Diagnoses Polyneuropathy, unspecified (03/11/18) Other abnormalities of gait and mobility (03/11/18) Physical Therapy Treatment Note PT-OP-A Visit Information Start: 03/01/18 16:29 Freq: Status: Active Protocol: Document 03/11/18 14:27 [facility] (Rec: 03/11/18 15:30 [facility] [email or web address]) Out-Patient Physical Therapy Visit Information Visit Information Visit Type Treatment Note Visit Start Time 13:45 Visit Stop Time 14:27 Total Visit Minutes 42 Visit Number 4 Number of INDUSTRIAL SAFETY [employer] HEALTH TECHNICIAN Visits 0 Evaluation Information Evaluation Date 02/26/18 PT-OP-B Current Condition Start: 03/01/18 16:29 Freq: Status: Active Protocol: Document 02/26/18 11:15 [facility] (Rec: 03/01/18 16:54 [facility] [email or web address]) Current Condition History of Current Condition Onset Date progressively worsening over the past year Current Complaints weakness, difficulty with walking, imbalance History of Current Condition Pt is a 78 y/o male presenting to physical therapy with a c/ o progressive weakness and numbness due to neuropathy in bilateral feet which has decrease his ability to balance and ambulate outdoors. Pt's presents today with the pt, stating that he is having more difficulty walking outside. He had a fall at home in August of 2017 with increased LE pain. Pt would like to improve his walking ability to be able to take his dog to the dog park and walk for >10 minutes without high levels of fatigue. Treatment Goals Patient/Caregiver Goals be able to walk >10 min at a time, improve balance and strength Prior Functional Status Baseline Function- Gait modified indep. gait outdoors to dog park from home-10-15 min walk outside Current Functional Impairments (Reported) Functional Limitations- Mobility/Gait requires prolonged rest after ambulating <10 min, difficulty with uneven terrain. Personal Factors Other Personal Factors That May Effect memory impairment, hearing Therapy/Recovery impairment, progressing neuropathy BLE PT-OP-C Subjective Start: 03/01/18 16:29 Freq: Status: Active Protocol: Document 03/11/18 14:27 [facility] (Rec: 03/11/18 15:30 [facility] [email or web address]) OP-PT Subjective Patient Comments Patient Comments Pt denies performing his HEP over the past week. PT-OP-D Balance Start: 03/01/18 16:29 Freq: Status: Active Protocol: Document 02/26/18 11:15 [facility] (Rec: 03/01/18 16:54 [facility] [email or web address]) Balance Tests Semi-Tandem Standing Semi-Tandem Standing Balance 1 sec R posterior, 2 sec L posterior PT-OP-E Functional Tests Start: 03/01/18 16:29 Freq: Status: Active Protocol: Document 02/26/18 11:15 [facility] (Rec: 03/01/18 16:54 [facility] [email or web address]) Functional Tests 6 Minute Walk Test Distance 823 ft Device Used none Dynamic Gait Index (DGI) Score 13 DGI Impairment Rating 40 to <60% Impaired (Score 10- 14) PT-OP-G Mobility & Gait Start: 03/01/18 16:29 Freq: Status: Active Protocol: Document 02/26/18 11:15 [facility] (Rec: 03/01/18 16:54 [facility] [email or web address]) OP Gait Assessment Gait Deviations General Gait Pattern Decreased Stride Length Decreased Feet Clearance Flexed Trunk Wide Based Gait Factors Limiting Gait Function Factors Limiting Gait Function Decreased Activity Tolerance Decreased Sensation Decreased Strength Poor Balance PT-OP-H Neuro Start: 03/01/18 16:29 Freq: Status: Active Protocol: Document 02/26/18 11:15 [facility] (Rec: 03/01/18 16:54 [facility] [email or web address]) Sensation Evaluation Comments Summary Comments impaired bilateral lower calf to feet PT-OP-J Posture/Palpation/Skin Start: 03/01/18 16:29 Freq: Status: Active Protocol: Document 02/26/18 11:15 [facility] (Rec: 03/01/18 16:54 [facility] [email or web address]) Skin Assessment Other Assessments Skin Assessment Comments purplish color bilateral feet; callus lateral plantar surface 5th MT (closed) L foot PT-OP-M Strength Start: 03/01/18 16:29 Freq: Status: Active Protocol: Document 02/26/18 11:15 [facility] (Rec: 03/01/18 16:54 [facility] [email or web address]) Hip Strength Hip Manual Muscle Testing Right Flexion (L2) 4 Good External Rotation 3+ Fair+ Internal Rotation 4 Good Left Flexion (L2) 4 Good External Rotation 3+ Fair+ Internal Rotation 4 Good Knee Strength Knee Manual Muscle Testing Right Flexion (S2) 4 Good Extension (L3) 5 Normal Left Flexion (S2) 4 Good Extension (L3) 4 Good Ankle/Foot Strength Ankle and Foot Manual Muscle Testing Right Dorsiflexion (L4) 4 Good Inversion 4 Good Eversion (S1) 3+ Fair+ Left Dorsiflexion (L4) 3+ Fair+ Inversion 3+ Fair+ Eversion (S1) 3+ Fair+ PT-OP-Q Treatments Start: 03/01/18 16:29 Freq: Status: Active Protocol: Document 03/11/18 14:27 [facility] (Rec: 03/11/18 15:30 [facility] [email or web address]) Cardio Equipment Recumbent Elliptical (Biodex) Duration (Minutes) 10 Resistance 6 Gym Equipment Shuttle Recovery Unilateral Squats Resistance 50 lbs Shuttle Recovery Platform Stable Reps/Time to fatigue Bilateral Squats Resistance 75 lbs Shuttle Recovery Platform Stable Reps/Time to fatigue Shuttle Balance 1 Details A/P normal stance, semi-tandem , lateral normal stance Reps/Duration 13 min Comments RED Therapeutic Exercises Sitting Exercises tilt board Sitting Exercise Name tilt board ankle AROM- A/P, M/ L Side bilateral Reps/Minutes 4 min Standing Exercises HS stretch Side bilateral Equipment Used stairs Reps/Minutes 2x15 sec each HC stretch Side bilateral Equipment Used DEMIAN Reps/Minutes 2x1 min Heel raises Side bilateral Reps/Minutes 2x10 Neuro Re-Education Treatment Other Activities heel toe gait Details heel-toe gait Reps/Duration 6 laps in // bars uneven surfaces Details gait on various pods and foam pads with yoga mat over top Reps/Duration 10 laps in // bars Comments UE required PT-OP-T Assessment and Plan Start: 03/01/18 16:29 Freq: Status: Active Protocol: Document 03/11/18 14:27 [facility] (Rec: 03/11/18 15:30 [facility] [email or web address]) Physical Therapy Assessment Assessment Summary Assessment Pt requires UE assistance >90% of the time and demonstrates frequent step-to gait pattern with uneven gait performance today. Pt fatigues quickly with Shuttle Recovery and Balance. Physical Therapy Plan Frequency and Duration Frequency of Treatment 2x/Week Duration of Treatment 12 weeks Plan of Care Start Date 02/26/18 Plan of Care End Date 05/21/18 Next Visit Focus/Plan Next Note Type Treatment Note Next Visit Plan progress toward floor/ground transfers, cont. ankle and LE strengthening
--- NOTE | 2018-03-13 14:30 | PT.OTN ---
Current Diagnoses Polyneuropathy, unspecified (03/13/18) Other abnormalities of gait and mobility (03/13/18) Physical Therapy Treatment Note PT-OP-A Visit Information Start: 03/01/18 16:29 Freq: Status: Active Protocol: Document 03/13/18 14:30 [facility] (Rec: 03/14/18 13:28 [facility] [email or web address]) Out-Patient Physical Therapy Visit Information Visit Information Visit Type Treatment Note Visit Start Time 13:45 Visit Stop Time 14:30 Total Visit Minutes 45 Visit Number 5 Number of CHILD WATCH ATTENDANT Visits 0 Evaluation Information Evaluation Date 02/26/18 PT-OP-B Current Condition Start: 03/01/18 16:29 Freq: Status: Active Protocol: Document 02/26/18 11:15 [facility] (Rec: 03/01/18 16:54 [facility] [email or web address]) Current Condition History of Current Condition Onset Date progressively worsening over the past year Current Complaints weakness, difficulty with walking, imbalance History of Current Condition Pt is a 78 y/o male presenting to physical therapy with a c/ o progressive weakness and numbness due to neuropathy in bilateral feet which has decrease his ability to balance and ambulate outdoors. Pt's presents today with the pt, stating that he is having more difficulty walking outside. He had a fall at home in August of 2017 with increased LE pain. Pt would like to improve his walking ability to be able to take his dog to the dog park and walk for >10 minutes without high levels of fatigue. Treatment Goals Patient/Caregiver Goals be able to walk >10 min at a time, improve balance and strength Prior Functional Status Baseline Function- Gait modified indep. gait outdoors to dog park from home-10-15 min walk outside Current Functional Impairments (Reported) Functional Limitations- Mobility/Gait requires prolonged rest after ambulating <10 min, difficulty with uneven terrain. Personal Factors Other Personal Factors That May Effect memory impairment, hearing Therapy/Recovery impairment, progressing neuropathy BLE PT-OP-C Subjective Start: 03/01/18 16:29 Freq: Status: Active Protocol: Document 03/13/18 14:30 [facility] (Rec: 03/14/18 13:28 [facility] [email or web address]) OP-PT Subjective Patient Comments Patient Comments Ed states he has been working on keeping his toes forward since his last visit. He was sore but no c/o pain after last session. PT-OP-D Balance Start: 03/01/18 16:29 Freq: Status: Active Protocol: Document 02/26/18 11:15 [facility] (Rec: 03/01/18 16:54 [facility] [email or web address]) Balance Tests Semi-Tandem Standing Semi-Tandem Standing Balance 1 sec R posterior, 2 sec L posterior PT-OP-E Functional Tests Start: 03/01/18 16:29 Freq: Status: Active Protocol: Document 02/26/18 11:15 [facility] (Rec: 03/01/18 16:54 [facility] [email or web address]) Functional Tests 6 Minute Walk Test Distance 823 ft Device Used none Dynamic Gait Index (DGI) Score 13 DGI Impairment Rating 40 to <60% Impaired (Score 10- 14) PT-OP-G Mobility & Gait Start: 03/01/18 16:29 Freq: Status: Active Protocol: Document 02/26/18 11:15 [facility] (Rec: 03/01/18 16:54 [facility] [email or web address]) OP Gait Assessment Gait Deviations General Gait Pattern Decreased Stride Length Decreased Feet Clearance Flexed Trunk Wide Based Gait Factors Limiting Gait Function Factors Limiting Gait Function Decreased Activity Tolerance Decreased Sensation Decreased Strength Poor Balance PT-OP-H Neuro Start: 03/01/18 16:29 Freq: Status: Active Protocol: Document 02/26/18 11:15 [facility] (Rec: 03/01/18 16:54 [facility] [email or web address]) Sensation Evaluation Comments Summary Comments impaired bilateral lower calf to feet PT-OP-J Posture/Palpation/Skin Start: 03/01/18 16:29 Freq: Status: Active Protocol: Document 02/26/18 11:15 [facility] (Rec: 03/01/18 16:54 [facility] [email or web address]) Skin Assessment Other Assessments Skin Assessment Comments purplish color bilateral feet; callus lateral plantar surface 5th MT (closed) L foot PT-OP-M Strength Start: 03/01/18 16:29 Freq: Status: Active Protocol: Document 02/26/18 11:15 [facility] (Rec: 03/01/18 16:54 [facility] [email or web address]) Hip Strength Hip Manual Muscle Testing Right Flexion (L2) 4 Good External Rotation 3+ Fair+ Internal Rotation 4 Good Left Flexion (L2) 4 Good External Rotation 3+ Fair+ Internal Rotation 4 Good Knee Strength Knee Manual Muscle Testing Right Flexion (S2) 4 Good Extension (L3) 5 Normal Left Flexion (S2) 4 Good Extension (L3) 4 Good Ankle/Foot Strength Ankle and Foot Manual Muscle Testing Right Dorsiflexion (L4) 4 Good Inversion 4 Good Eversion (S1) 3+ Fair+ Left Dorsiflexion (L4) 3+ Fair+ Inversion 3+ Fair+ Eversion (S1) 3+ Fair+ PT-OP-Q Treatments Start: 03/01/18 16:29 Freq: Status: Active Protocol: Document 03/13/18 14:30 [facility] (Rec: 03/14/18 13:28 [facility] [email or web address]) Cardio Equipment Recumbent Stepper (Sci-Fit) Duration (Minutes) 10 Resistance 4 Seat Position 17 Gym Equipment Shuttle Recovery Unilateral Squats Resistance 50 lbs Shuttle Recovery Platform Stable Reps/Time to fatigue Bilateral Squats Resistance 75 lbs Shuttle Recovery Platform Stable Reps/Time to fatigue Shuttle Balance 1 Details A/P normal stance, semi-tandem , lateral normal stance Reps/Duration 12 min Comments RED Sport Cord forward and backward walking Exercise Details forward and backward gait Cord/Resistance blue/white Reps/Duration 5 each direction Comments Min A for balance Neuro Re-Education Treatment Balance Activities SLS Surface firm Equipment // bars Reps/Duration 1 min each (multiple attempts required) Tandem standing Surface firm Equipment // bars Reps/Duration 3x30 sec each situation Other Activities heel toe gait Details heel-toe gait Reps/Duration 4 laps in // bars uneven surfaces Details gait on various pods and foam pads with yoga mat over top Reps/Duration 10 laps in // bars Comments UE required PT-OP-T Assessment and Plan Start: 03/01/18 16:29 Freq: Status: Active Protocol: Document 03/13/18 14:30 [facility] (Rec: 03/14/18 13:28 [facility] [email or web address]) Physical Therapy Assessment Assessment Summary Assessment Pt with improved ankle strategy on Shuttle Balance today, but still requires occasional UE assistance. He is unable to hold SL balance without some UE assistance at this time, and required Min A for balance when walking with sports cord resistance. Pt was fatigued, but able to ambulate at his baseline level after session. Physical Therapy Plan Frequency and Duration Frequency of Treatment 2x/Week Duration of Treatment 12 weeks Plan of Care Start Date 02/26/18 Plan of Care End Date 05/21/18 Next Visit Focus/Plan Next Note Type Treatment Note Next Visit Plan attempt floor transfer, lunges
--- NOTE | 2018-03-18 14:27 | PT.OTN ---
Current Diagnoses Polyneuropathy, unspecified (03/18/18) Other abnormalities of gait and mobility (03/18/18) Physical Therapy Treatment Note PT-OP-A Visit Information Start: 03/01/18 16:29 Freq: Status: Active Protocol: Document 03/18/18 14:27 [facility] (Rec: 03/18/18 16:03 [email or web address]) Out-Patient Physical Therapy Visit Information Visit Information Visit Type Treatment Note Visit Start Time 13:45 Visit Stop Time 14:27 Total Visit Minutes 42 Visit Number 6 Number of SALES ENGINEER ACCOUNT MANAGER Visits 0 Evaluation Information Evaluation Date 02/26/18 PT-OP-B Current Condition Start: 03/01/18 16:29 Freq: Status: Active Protocol: Document 02/26/18 11:15 [facility] (Rec: 03/01/18 16:54 [facility] [email or web address]) Current Condition History of Current Condition Onset Date progressively worsening over the past year Current Complaints weakness, difficulty with walking, imbalance History of Current Condition Pt is a 78 y/o male presenting to physical therapy with a c/ o progressive weakness and numbness due to neuropathy in bilateral feet which has decrease his ability to balance and ambulate outdoors. Pt's presents today with the pt, stating that he is having more difficulty walking outside. He had a fall at home in August of 2017 with increased LE pain. Pt would like to improve his walking ability to be able to take his dog to the dog park and walk for >10 minutes without high levels of fatigue. Treatment Goals Patient/Caregiver Goals be able to walk >10 min at a time, improve balance and strength Prior Functional Status Baseline Function- Gait modified indep. gait outdoors to dog park from home-10-15 min walk outside Current Functional Impairments (Reported) Functional Limitations- Mobility/Gait requires prolonged rest after ambulating <10 min, difficulty with uneven terrain. Personal Factors Other Personal Factors That May Effect memory impairment, hearing Therapy/Recovery impairment, progressing neuropathy BLE PT-OP-C Subjective Start: 03/01/18 16:29 Freq: Status: Active Protocol: Document 03/18/18 14:27 [facility] (Rec: 03/18/18 16:03 [facility] [email or web address]) OP-PT Subjective Patient Comments Patient Comments Pt stats his legs are a little tired today for no particular reason. His is helping him with his HEP occasionally. PT-OP-D Balance Start: 03/01/18 16:29 Freq: Status: Active Protocol: Document 02/26/18 11:15 [facility] (Rec: 03/01/18 16:54 [facility] [email or web address]) Balance Tests Semi-Tandem Standing Semi-Tandem Standing Balance 1 sec R posterior, 2 sec L posterior PT-OP-E Functional Tests Start: 03/01/18 16:29 Freq: Status: Active Protocol: Document 02/26/18 11:15 [facility] (Rec: 03/01/18 16:54 [facility] [email or web address]) Functional Tests 6 Minute Walk Test Distance 823 ft Device Used none Dynamic Gait Index (DGI) Score 13 DGI Impairment Rating 40 to <60% Impaired (Score 10- 14) PT-OP-G Mobility & Gait Start: 03/01/18 16:29 Freq: Status: Active Protocol: Document 02/26/18 11:15 [facility] (Rec: 03/01/18 16:54 [facility] [email or web address]) OP Gait Assessment Gait Deviations General Gait Pattern Decreased Stride Length Decreased Feet Clearance Flexed Trunk Wide Based Gait Factors Limiting Gait Function Factors Limiting Gait Function Decreased Activity Tolerance Decreased Sensation Decreased Strength Poor Balance PT-OP-H Neuro Start: 03/01/18 16:29 Freq: Status: Active Protocol: Document 02/26/18 11:15 [facility] (Rec: 03/01/18 16:54 [facility] [email or web address]) Sensation Evaluation Comments Summary Comments impaired bilateral lower calf to feet PT-OP-J Posture/Palpation/Skin Start: 03/01/18 16:29 Freq: Status: Active Protocol: Document 02/26/18 11:15 [facility] (Rec: 03/01/18 16:54 [facility] [email or web address]) Skin Assessment Other Assessments Skin Assessment Comments purplish color bilateral feet; callus lateral plantar surface 5th MT (closed) L foot PT-OP-M Strength Start: 03/01/18 16:29 Freq: Status: Active Protocol: Document 02/26/18 11:15 [facility] (Rec: 03/01/18 16:54 [facility] [email or web address]) Hip Strength Hip Manual Muscle Testing Right Flexion (L2) 4 Good External Rotation 3+ Fair+ Internal Rotation 4 Good Left Flexion (L2) 4 Good External Rotation 3+ Fair+ Internal Rotation 4 Good Knee Strength Knee Manual Muscle Testing Right Flexion (S2) 4 Good Extension (L3) 5 Normal Left Flexion (S2) 4 Good Extension (L3) 4 Good Ankle/Foot Strength Ankle and Foot Manual Muscle Testing Right Dorsiflexion (L4) 4 Good Inversion 4 Good Eversion (S1) 3+ Fair+ Left Dorsiflexion (L4) 3+ Fair+ Inversion 3+ Fair+ Eversion (S1) 3+ Fair+ PT-OP-Q Treatments Start: 03/01/18 16:29 Freq: Status: Active Protocol: Document 03/18/18 14:27 [facility] (Rec: 03/18/18 16:03 [facility] [email or web address]) Cardio Equipment Recumbent Stepper (Sci-Fit) Duration (Minutes) 10 Resistance 4 Seat Position 16 Therapeutic Exercises Sitting Exercises 3 way ankle Sitting Exercise Name ankle DF, inv, eversion Side bilateral Resistance L1 eversion, L2 DF and inversion Reps/Minutes x10 each LE and direction Comments detailed discussion and demonstration with and pt during this time Standing Exercises tin soldiers Standing Exercise Name walking straight leg march in // bars Side bilateral Reps/Minutes 2 laps HS stretch Side bilateral Equipment Used stairs Reps/Minutes 2x15 sec each HC stretch Side bilateral Equipment Used DEMIAN Reps/Minutes 2x1 min Heel raises Standing Exercise Name alternating heel/toe raises Side bilateral Reps/Minutes 2x10 Neuro Re-Education Treatment Balance Activities SLS Surface firm Equipment // bars Reps/Duration 1 min each (multiple attempts required) Other Activities STS with feet on balance discs Reps/Duration 8 reps Comments pad to elevated chair (STS from chair), yellow and blue discs under feet; // bars and Min A heel toe gait Details heel-toe gait forward and backward EO and EC Reps/Duration 4 laps in // bars PT-OP-T Assessment and Plan Start: 03/01/18 16:29 Freq: Status: Active Protocol: Document 03/18/18 14:27 [facility] (Rec: 03/18/18 16:03 [facility] [email or web address]) Physical Therapy Assessment Assessment Summary Assessment Pt required prolonged rest break after Sci-fit today, but overall tolerated exercises well and is progressing with standing balance. Physical Therapy Plan Frequency and Duration Frequency of Treatment 2x/Week Duration of Treatment 12 weeks Plan of Care Start Date 02/26/18 Plan of Care End Date 05/21/18 Next Visit Focus/Plan Next Note Type Treatment Note Next Visit Plan floor transfers
--- NOTE | 2018-03-20 13:45 | PT.OTN ---
Current Diagnoses Polyneuropathy, unspecified (03/20/18) Other abnormalities of gait and mobility (03/20/18) Physical Therapy Treatment Note PT-OP-A Visit Information Start: 03/01/18 16:29 Freq: Status: Active Protocol: Document 03/20/18 13:45 [facility] (Rec: 03/20/18 14:31 [facility] [email or web address]) Out-Patient Physical Therapy Visit Information Visit Information Visit Type Treatment Note Visit Start Time 13:45 Visit Stop Time 14:26 Total Visit Minutes 41 Visit Number 7 Number of ROLL TESTER Visits 0 Evaluation Information Evaluation Date 02/26/18 PT-OP-B Current Condition Start: 03/01/18 16:29 Freq: Status: Active Protocol: Document 02/26/18 11:15 [facility] (Rec: 03/01/18 16:54 [facility] [email or web address]) Current Condition History of Current Condition Onset Date progressively worsening over the past year Current Complaints weakness, difficulty with walking, imbalance History of Current Condition Pt is a 78 y/o male presenting to physical therapy with a c/ o progressive weakness and numbness due to neuropathy in bilateral feet which has decrease his ability to balance and ambulate outdoors. Pt's presents today with the pt, stating that he is having more difficulty walking outside. He had a fall at home in August of 2017 with increased LE pain. Pt would like to improve his walking ability to be able to take his dog to the dog park and walk for >10 minutes without high levels of fatigue. Treatment Goals Patient/Caregiver Goals be able to walk >10 min at a time, improve balance and strength Prior Functional Status Baseline Function- Gait modified indep. gait outdoors to dog park from home-10-15 min walk outside Current Functional Impairments (Reported) Functional Limitations- Mobility/Gait requires prolonged rest after ambulating <10 min, difficulty with uneven terrain. Personal Factors Other Personal Factors That May Effect memory impairment, hearing Therapy/Recovery impairment, progressing neuropathy BLE PT-OP-C Subjective Start: 03/01/18 16:29 Freq: Status: Active Protocol: Document 03/20/18 13:45 [facility] (Rec: 03/20/18 14:31 [facility] [email or web address]) OP-PT Subjective Patient Comments Patient Comments Pt reports feeling good today, notes that his L leg is more weak then the R. PT-OP-D Balance Start: 03/01/18 16:29 Freq: Status: Active Protocol: Document 02/26/18 11:15 [facility] (Rec: 03/01/18 16:54 [facility] [email or web address]) Balance Tests Semi-Tandem Standing Semi-Tandem Standing Balance 1 sec R posterior, 2 sec L posterior PT-OP-E Functional Tests Start: 03/01/18 16:29 Freq: Status: Active Protocol: Document 02/26/18 11:15 [facility] (Rec: 03/01/18 16:54 [facility] [email or web address]) Functional Tests 6 Minute Walk Test Distance 823 ft Device Used none Dynamic Gait Index (DGI) Score 13 DGI Impairment Rating 40 to <60% Impaired (Score 10- 14) PT-OP-G Mobility & Gait Start: 03/01/18 16:29 Freq: Status: Active Protocol: Document 02/26/18 11:15 [facility] (Rec: 03/01/18 16:54 [facility] [email or web address]) OP Gait Assessment Gait Deviations General Gait Pattern Decreased Stride Length Decreased Feet Clearance Flexed Trunk Wide Based Gait Factors Limiting Gait Function Factors Limiting Gait Function Decreased Activity Tolerance Decreased Sensation Decreased Strength Poor Balance PT-OP-H Neuro Start: 03/01/18 16:29 Freq: Status: Active Protocol: Document 02/26/18 11:15 [facility] (Rec: 03/01/18 16:54 [facility] [email or web address]) Sensation Evaluation Comments Summary Comments impaired bilateral lower calf to feet PT-OP-J Posture/Palpation/Skin Start: 03/01/18 16:29 Freq: Status: Active Protocol: Document 02/26/18 11:15 [facility] (Rec: 03/01/18 16:54 [facility] [email or web address]) Skin Assessment Other Assessments Skin Assessment Comments purplish color bilateral feet; callus lateral plantar surface 5th MT (closed) L foot PT-OP-M Strength Start: 03/01/18 16:29 Freq: Status: Active Protocol: Document 02/26/18 11:15 [facility] (Rec: 03/01/18 16:54 [facility] [email or web address]) Hip Strength Hip Manual Muscle Testing Right Flexion (L2) 4 Good External Rotation 3+ Fair+ Internal Rotation 4 Good Left Flexion (L2) 4 Good External Rotation 3+ Fair+ Internal Rotation 4 Good Knee Strength Knee Manual Muscle Testing Right Flexion (S2) 4 Good Extension (L3) 5 Normal Left Flexion (S2) 4 Good Extension (L3) 4 Good Ankle/Foot Strength Ankle and Foot Manual Muscle Testing Right Dorsiflexion (L4) 4 Good Inversion 4 Good Eversion (S1) 3+ Fair+ Left Dorsiflexion (L4) 3+ Fair+ Inversion 3+ Fair+ Eversion (S1) 3+ Fair+ PT-OP-Q Treatments Start: 03/01/18 16:29 Freq: Status: Active Protocol: Document 03/20/18 13:45 [facility] (Rec: 03/20/18 14:31 [facility] [email or web address]) Cardio Equipment Recumbent Stepper (Sci-Fit) Duration (Minutes) 10 Resistance 4 Seat Position 16 Gym Equipment Shuttle Recovery Unilateral Squats Resistance 50 lbs Shuttle Recovery Platform Stable Reps/Time to fatigue Bilateral Squats Resistance 75 lbs Shuttle Recovery Platform Stable Reps/Time to fatigue Therapeutic Exercises Sitting Exercises 3 way ankle Sitting Exercise Name ankle DF, inv, eversion Side bilateral Resistance L1 eversion, L2 DF and inversion Reps/Minutes x10 each LE and direction Comments detailed discussion and demonstration with and pt during this time Standing Exercises resisted walk Standing Exercise Name lateral, forward, backward walk Side bilateral Resistance L3 Reps/Minutes 3 laps each kneeling Standing Exercise Name kneeling on hernandez pad ( unilateral kneeling) with kneel to standing and back Side bilateral Reps/Minutes 5 each lunges Side bilateral Equipment Used // bars Reps/Minutes 10 each step up Standing Exercise Name BOSU (blue) step ups forward Side bilateral Reps/Minutes 10 each Comments UE support squats Standing Exercise Name sit<->stand with chair behind pt Side bilateral Reps/Minutes 10 Comments no hands up, hands on thighs down PT-OP-T Assessment and Plan Start: 03/01/18 16:29 Freq: Status: Active Protocol: Document 03/20/18 13:45 [facility] (Rec: 03/20/18 14:31 [facility] [email or web address]) Physical Therapy Assessment Assessment Summary Assessment Pt with greater ability to get from kneeling to standing with BUE assistance and R knee kneeling on ground vs. L. Pt is improving with tolerance to ankle strengthening. Physical Therapy Plan Frequency and Duration Frequency of Treatment 2x/Week Duration of Treatment 12 weeks Plan of Care Start Date 02/26/18 Plan of Care End Date 05/21/18 Next Visit Focus/Plan Next Note Type Treatment Note Next Visit Plan cont. to progress toward floor transfers (did kneeling in // bars); gait and balance training.
--- NOTE | 2018-03-25 13:45 | PT.OTN ---
Current Diagnoses Polyneuropathy, unspecified (03/25/18) Other abnormalities of gait and mobility (03/25/18) Physical Therapy Treatment Note PT-OP-A Visit Information Start: 03/01/18 16:29 Freq: Status: Active Protocol: Document 03/25/18 13:45 [facility] (Rec: 03/25/18 18:09 [facility] [email or web address]) Out-Patient Physical Therapy Visit Information Visit Information Visit Type Treatment Note Visit Start Time 13:45 Visit Stop Time 14:20 Total Visit Minutes 40 Visit Number 8 Number of ROLLER PRINT TENDER Visits 0 Evaluation Information Evaluation Date 02/26/18 PT-OP-B Current Condition Start: 03/01/18 16:29 Freq: Status: Active Protocol: Document 02/26/18 11:15 [facility] (Rec: 03/01/18 16:54 [facility] [email or web address]) Current Condition History of Current Condition Onset Date progressively worsening over the past year Current Complaints weakness, difficulty with walking, imbalance History of Current Condition Pt is a 78 y/o male presenting to physical therapy with a c/ o progressive weakness and numbness due to neuropathy in bilateral feet which has decrease his ability to balance and ambulate outdoors. Pt's presents today with the pt, stating that he is having more difficulty walking outside. He had a fall at home in August of 2017 with increased LE pain. Pt would like to improve his walking ability to be able to take his dog to the dog park and walk for >10 minutes without high levels of fatigue. Treatment Goals Patient/Caregiver Goals be able to walk >10 min at a time, improve balance and strength Prior Functional Status Baseline Function- Gait modified indep. gait outdoors to dog park from home-10-15 min walk outside Current Functional Impairments (Reported) Functional Limitations- Mobility/Gait requires prolonged rest after ambulating <10 min, difficulty with uneven terrain. Personal Factors Other Personal Factors That May Effect memory impairment, hearing Therapy/Recovery impairment, progressing neuropathy BLE PT-OP-C Subjective Start: 03/01/18 16:29 Freq: Status: Active Protocol: Document 03/25/18 13:45 [facility] (Rec: 03/25/18 18:09 [facility] [email or web address]) OP-PT Subjective Patient Comments Patient Comments Pt states he feels less discomfort in his L leg today. PT-OP-D Balance Start: 03/01/18 16:29 Freq: Status: Active Protocol: Document 02/26/18 11:15 [facility] (Rec: 03/01/18 16:54 [facility] [email or web address]) Balance Tests Semi-Tandem Standing Semi-Tandem Standing Balance 1 sec R posterior, 2 sec L posterior PT-OP-E Functional Tests Start: 03/01/18 16:29 Freq: Status: Active Protocol: Document 02/26/18 11:15 [facility] (Rec: 03/01/18 16:54 [facility] [email or web address]) Functional Tests 6 Minute Walk Test Distance 823 ft Device Used none Dynamic Gait Index (DGI) Score 13 DGI Impairment Rating 40 to <60% Impaired (Score 10- 14) PT-OP-G Mobility & Gait Start: 03/01/18 16:29 Freq: Status: Active Protocol: Document 02/26/18 11:15 [facility] (Rec: 03/01/18 16:54 [facility] [email or web address]) OP Gait Assessment Gait Deviations General Gait Pattern Decreased Stride Length Decreased Feet Clearance Flexed Trunk Wide Based Gait Factors Limiting Gait Function Factors Limiting Gait Function Decreased Activity Tolerance Decreased Sensation Decreased Strength Poor Balance PT-OP-H Neuro Start: 03/01/18 16:29 Freq: Status: Active Protocol: Document 02/26/18 11:15 [facility] (Rec: 03/01/18 16:54 [facility] [email or web address]) Sensation Evaluation Comments Summary Comments impaired bilateral lower calf to feet PT-OP-J Posture/Palpation/Skin Start: 03/01/18 16:29 Freq: Status: Active Protocol: Document 02/26/18 11:15 [facility] (Rec: 03/01/18 16:54 [facility] [email or web address]) Skin Assessment Other Assessments Skin Assessment Comments purplish color bilateral feet; callus lateral plantar surface 5th MT (closed) L foot PT-OP-M Strength Start: 03/01/18 16:29 Freq: Status: Active Protocol: Document 02/26/18 11:15 [facility] (Rec: 03/01/18 16:54 [facility] [email or web address]) Hip Strength Hip Manual Muscle Testing Right Flexion (L2) 4 Good External Rotation 3+ Fair+ Internal Rotation 4 Good Left Flexion (L2) 4 Good External Rotation 3+ Fair+ Internal Rotation 4 Good Knee Strength Knee Manual Muscle Testing Right Flexion (S2) 4 Good Extension (L3) 5 Normal Left Flexion (S2) 4 Good Extension (L3) 4 Good Ankle/Foot Strength Ankle and Foot Manual Muscle Testing Right Dorsiflexion (L4) 4 Good Inversion 4 Good Eversion (S1) 3+ Fair+ Left Dorsiflexion (L4) 3+ Fair+ Inversion 3+ Fair+ Eversion (S1) 3+ Fair+ PT-OP-Q Treatments Start: 03/01/18 16:29 Freq: Status: Active Protocol: Document 03/25/18 13:45 [facility] (Rec: 03/25/18 18:09 [facility] [email or web address]) Cardio Equipment Recumbent Stepper (Sci-Fit) Duration (Minutes) 10 Resistance 4 Seat Position 16 Therapeutic Exercises Sitting Exercises tilt board Sitting Exercise Name tilt board ankle AROM- A/P, M/ L Side bilateral Reps/Minutes [address] Sitting Exercise Name ankle DF, inv, eversion Side bilateral Resistance L2 Reps/Minutes x20 each Standing Exercises squats Standing Exercise Name sit<->stand with chair behind pt Side bilateral Reps/Minutes 10 Comments no hands up, hands on thighs down HS stretch Side bilateral Equipment Used stairs Reps/Minutes 2x15 sec each HC stretch Side bilateral Equipment Used DEMIAN Reps/Minutes 2x1 min Neuro Re-Education Treatment Other Activities heel toe gait Details heel-toe gait forward and backward EO and EC Reps/Duration 4 laps in // bars uneven surfaces Details gait on various pods and foam pads with yoga mat over top Reps/Duration 10 laps in // bars Comments UE required; 5 laps EO, 5 EC PT-OP-T Assessment and Plan Start: 03/01/18 16:29 Freq: Status: Active Protocol: Document 03/25/18 13:45 [facility] (Rec: 03/25/18 18:09 [facility] [email or web address]) Physical Therapy Assessment Assessment Summary Assessment Pt tolerated increased resistance with ankle DF, inversion and eversion today. Pt requires short rest periods throughout session, but overall good pacing of activities. Physical Therapy Plan Frequency and Duration Frequency of Treatment 2x/Week Duration of Treatment 12 weeks Plan of Care Start Date 02/26/18 Plan of Care End Date 05/21/18 Next Visit Focus/Plan Next Note Type Treatment Note Next Visit Plan continue balance and LE strengthening, proprioception as tolerated.
--- NOTE | 2018-03-27 13:45 | PT.OTN ---
Current Diagnoses Polyneuropathy, unspecified (03/27/18) Other abnormalities of gait and mobility (03/27/18) Physical Therapy Treatment Note PT-OP-A Visit Information Start: 03/01/18 16:29 Freq: Status: Active Protocol: Document 03/27/18 13:45 [facility] (Rec: 03/27/18 14:30 [email or web address]) Out-Patient Physical Therapy Visit Information Visit Information Visit Type Treatment Note Visit Start Time 13:45 Visit Stop Time 14:26 Total Visit Minutes 41 Visit Number 9 Number of PACKING INSPECTOR Visits 0 Evaluation Information Evaluation Date 02/26/18 PT-OP-B Current Condition Start: 03/01/18 16:29 Freq: Status: Active Protocol: Document 02/26/18 11:15 [facility] (Rec: 03/01/18 16:54 [facility] [email or web address]) Current Condition History of Current Condition Onset Date progressively worsening over the past year Current Complaints weakness, difficulty with walking, imbalance History of Current Condition Pt is a 78 y/o male presenting to physical therapy with a c/ o progressive weakness and numbness due to neuropathy in bilateral feet which has decrease his ability to balance and ambulate outdoors. Pt's presents today with the pt, stating that he is having more difficulty walking outside. He had a fall at home in August of 2017 with increased LE pain. Pt would like to improve his walking ability to be able to take his dog to the dog park and walk for >10 minutes without high levels of fatigue. Treatment Goals Patient/Caregiver Goals be able to walk >10 min at a time, improve balance and strength Prior Functional Status Baseline Function- Gait modified indep. gait outdoors to dog park from home-10-15 min walk outside Current Functional Impairments (Reported) Functional Limitations- Mobility/Gait requires prolonged rest after ambulating <10 min, difficulty with uneven terrain. Personal Factors Other Personal Factors That May Effect memory impairment, hearing Therapy/Recovery impairment, progressing neuropathy BLE PT-OP-C Subjective Start: 03/01/18 16:29 Freq: Status: Active Protocol: Document 03/27/18 13:45 [facility] (Rec: 03/27/18 14:30 [facility] [email or web address]) OP-PT Subjective Patient Comments Patient Comments Pt with no new complaints. PT-OP-D Balance Start: 03/01/18 16:29 Freq: Status: Active Protocol: Document 02/26/18 11:15 [facility] (Rec: 03/01/18 16:54 [facility] [email or web address]) Balance Tests Semi-Tandem Standing Semi-Tandem Standing Balance 1 sec R posterior, 2 sec L posterior PT-OP-E Functional Tests Start: 03/01/18 16:29 Freq: Status: Active Protocol: Document 02/26/18 11:15 [facility] (Rec: 03/01/18 16:54 [facility] [email or web address]) Functional Tests 6 Minute Walk Test Distance 823 ft Device Used none Dynamic Gait Index (DGI) Score 13 DGI Impairment Rating 40 to <60% Impaired (Score 10- 14) PT-OP-G Mobility & Gait Start: 03/01/18 16:29 Freq: Status: Active Protocol: Document 02/26/18 11:15 [facility] (Rec: 03/01/18 16:54 [facility] [email or web address]) OP Gait Assessment Gait Deviations General Gait Pattern Decreased Stride Length Decreased Feet Clearance Flexed Trunk Wide Based Gait Factors Limiting Gait Function Factors Limiting Gait Function Decreased Activity Tolerance Decreased Sensation Decreased Strength Poor Balance PT-OP-H Neuro Start: 03/01/18 16:29 Freq: Status: Active Protocol: Document 02/26/18 11:15 [facility] (Rec: 03/01/18 16:54 [facility] [email or web address]) Sensation Evaluation Comments Summary Comments impaired bilateral lower calf to feet PT-OP-J Posture/Palpation/Skin Start: 03/01/18 16:29 Freq: Status: Active Protocol: Document 02/26/18 11:15 [facility] (Rec: 03/01/18 16:54 [facility] [email or web address]) Skin Assessment Other Assessments Skin Assessment Comments purplish color bilateral feet; callus lateral plantar surface 5th MT (closed) L foot PT-OP-M Strength Start: 03/01/18 16:29 Freq: Status: Active Protocol: Document 02/26/18 11:15 [facility] (Rec: 03/01/18 16:54 [facility] [email or web address]) Hip Strength Hip Manual Muscle Testing Right Flexion (L2) 4 Good External Rotation 3+ Fair+ Internal Rotation 4 Good Left Flexion (L2) 4 Good External Rotation 3+ Fair+ Internal Rotation 4 Good Knee Strength Knee Manual Muscle Testing Right Flexion (S2) 4 Good Extension (L3) 5 Normal Left Flexion (S2) 4 Good Extension (L3) 4 Good Ankle/Foot Strength Ankle and Foot Manual Muscle Testing Right Dorsiflexion (L4) 4 Good Inversion 4 Good Eversion (S1) 3+ Fair+ Left Dorsiflexion (L4) 3+ Fair+ Inversion 3+ Fair+ Eversion (S1) 3+ Fair+ PT-OP-Q Treatments Start: 03/01/18 16:29 Freq: Status: Active Protocol: Document 03/27/18 13:45 [facility] (Rec: 03/27/18 14:30 [facility] [email or web address]) Cardio Equipment Recumbent Stepper (Sci-Fit) Duration (Minutes) 10 Resistance 4 Seat Position 16 Gym Equipment Shuttle Recovery Unilateral Squats Resistance 50 lbs Shuttle Recovery Platform Stable Reps/Time to fatigue Bilateral Squats Resistance 75 lbs Shuttle Recovery Platform Stable Reps/Time to fatigue Shuttle Balance 1 Details A/P normal stance, semi-tandem , lateral normal stance Reps/Duration 10 min Comments RED Therapeutic Exercises Sitting Exercises tilt board Sitting Exercise Name tilt board ankle AROM- A/P, M/ L Side bilateral Reps/Minutes [address] ankle Sitting Exercise Name ankle DF, inv, eversion Side bilateral Resistance L2 Reps/Minutes x20 each Standing Exercises HS stretch Side bilateral Equipment Used stairs Reps/Minutes 2x15 sec each HC stretch Side bilateral Equipment Used DEMIAN Reps/Minutes 2x1 min Neuro Re-Education Treatment Balance Activities SLS Surface firm Equipment // bars Reps/Duration 1 min each (multiple attempts required) Tandem standing Surface firm Equipment // bars Reps/Duration 3x30 sec each situation Other Activities heel toe gait Details heel-toe gait forward and backward EO and EC Reps/Duration 4 laps in // bars PT-OP-T Assessment and Plan Start: 03/01/18 16:29 Freq: Status: Active Protocol: Document 03/27/18 13:45 [facility] (Rec: 03/27/18 14:30 [facility] [email or web address]) Physical Therapy Assessment Assessment Summary Assessment Pt with fatigue of the L ankle with resistance bands today, especially with eversion. Pt with less required rest breaks today, demonstrating possible improvements with activity tolerance. Physical Therapy Plan Frequency and Duration Frequency of Treatment 2x/Week Duration of Treatment 12 weeks Plan of Care Start Date 02/26/18 Plan of Care End Date 05/21/18 Next Visit Focus/Plan Next Note Type Progress Note Next Visit Plan 10th visit
--- NOTE | 2018-04-01 13:45 | PT.OTN ---
Current Diagnoses Polyneuropathy, unspecified (04/01/18) Other abnormalities of gait and mobility (04/01/18) Physical Therapy Treatment Note PT-OP-A Visit Information Start: 03/01/18 16:29 Freq: Status: Active Protocol: Document 04/01/18 13:45 [facility] (Rec: 04/01/18 18:02 [facility] [email or web address]) Out-Patient Physical Therapy Visit Information Visit Information Visit Type Treatment Note Visit Start Time 13:45 Visit Stop Time 14:30 Total Visit Minutes 45 Visit Number 10 Number of LIBRARY SPECIALIST Visits 0 Evaluation Information Evaluation Date 02/26/18 PT-OP-B Current Condition Start: 03/01/18 16:29 Freq: Status: Active Protocol: Document 02/26/18 11:15 [facility] (Rec: 03/01/18 16:54 [facility] [email or web address]) Current Condition History of Current Condition Onset Date progressively worsening over the past year Current Complaints weakness, difficulty with walking, imbalance History of Current Condition Pt is a 78 y/o male presenting to physical therapy with a c/ o progressive weakness and numbness due to neuropathy in bilateral feet which has decrease his ability to balance and ambulate outdoors. Pt's presents today with the pt, stating that he is having more difficulty walking outside. He had a fall at home in August of 2017 with increased LE pain. Pt would like to improve his walking ability to be able to take his dog to the dog park and walk for >10 minutes without high levels of fatigue. Treatment Goals Patient/Caregiver Goals be able to walk >10 min at a time, improve balance and strength Prior Functional Status Baseline Function- Gait modified indep. gait outdoors to dog park from home-10-15 min walk outside Current Functional Impairments (Reported) Functional Limitations- Mobility/Gait requires prolonged rest after ambulating <10 min, difficulty with uneven terrain. Personal Factors Other Personal Factors That May Effect memory impairment, hearing Therapy/Recovery impairment, progressing neuropathy BLE PT-OP-C Subjective Start: 03/01/18 16:29 Freq: Status: Active Protocol: Document 04/01/18 13:45 [facility] (Rec: 04/01/18 18:02 [facility] [email or web address]) OP-PT Subjective Patient Comments Patient Comments Pt feels like he is walking better, but has not been able to walk outside much this week due to the weather. Patient Reported Progress Improving PT-OP-D Balance Start: 03/01/18 16:29 Freq: Status: Active Protocol: Document 02/26/18 11:15 [facility] (Rec: 03/01/18 16:54 [facility] [email or web address]) Balance Tests Semi-Tandem Standing Semi-Tandem Standing Balance 1 sec R posterior, 2 sec L posterior PT-OP-E Functional Tests Start: 03/01/18 16:29 Freq: Status: Active Protocol: Document 04/01/18 13:45 [facility] (Rec: 04/01/18 18:02 [facility] [email or web address]) Functional Tests 6 Minute Walk Test Distance 1,040 ft Device Used none PT-OP-G Mobility & Gait Start: 03/01/18 16:29 Freq: Status: Active Protocol: Document 02/26/18 11:15 [facility] (Rec: 03/01/18 16:54 [facility] [email or web address]) OP Gait Assessment Gait Deviations General Gait Pattern Decreased Stride Length Decreased Feet Clearance Flexed Trunk Wide Based Gait Factors Limiting Gait Function Factors Limiting Gait Function Decreased Activity Tolerance Decreased Sensation Decreased Strength Poor Balance PT-OP-H Neuro Start: 03/01/18 16:29 Freq: Status: Active Protocol: Document 02/26/18 11:15 [facility] (Rec: 03/01/18 16:54 [facility] [email or web address]) Sensation Evaluation Comments Summary Comments impaired bilateral lower calf to feet PT-OP-J Posture/Palpation/Skin Start: 03/01/18 16:29 Freq: Status: Active Protocol: Document 02/26/18 11:15 [facility] (Rec: 03/01/18 16:54 [facility] [email or web address]) Skin Assessment Other Assessments Skin Assessment Comments purplish color bilateral feet; callus lateral plantar surface 5th MT (closed) L foot PT-OP-M Strength Start: 03/01/18 16:29 Freq: Status: Active Protocol: Document 04/01/18 13:45 [facility] (Rec: 04/01/18 18:02 [facility] [email or web address]) Hip Strength Hip Manual Muscle Testing Right Flexion (L2) 4+ Good+ External Rotation 4 Good Internal Rotation 4 Good Left Flexion (L2) 4+ Good+ External Rotation 4- Good- Internal Rotation 4 Good Knee Strength Knee Manual Muscle Testing Right Flexion (S2) 4+ Good+ Extension (L3) 5 Normal Left Flexion (S2) 4+ Good+ Extension (L3) 4 Good Ankle/Foot Strength Ankle and Foot Manual Muscle Testing Right Dorsiflexion (L4) 4+ Good+ Inversion 4+ Good+ Eversion (S1) 4 Good Left Dorsiflexion (L4) 4 Good Inversion 4 Good Eversion (S1) 4 Good PT-OP-Q Treatments Start: 03/01/18 16:29 Freq: Status: Active Protocol: Document 04/01/18 13:45 [facility] (Rec: 04/01/18 18:02 [facility] [email or web address]) Therapeutic Exercises Sitting Exercises hip IR/ER Side bilateral Resistance L1 Reps/Minutes 10 each tilt board Sitting Exercise Name tilt board ankle AROM- A/P, M/ L Side bilateral Reps/Minutes [address] ankle Sitting Exercise Name ankle DF, inv, eversion Side bilateral Resistance L2 Reps/Minutes x20 each Standing Exercises lunges Side bilateral Equipment Used // bars Reps/Minutes 10 each HS stretch Side bilateral Equipment Used stairs Reps/Minutes 2x15 sec each HC stretch Side bilateral Equipment Used DEMIAN Reps/Minutes 2x1 min Heel raises Standing Exercise Name alternating heel/toe raises Side bilateral Reps/Minutes 2x10 Manual Therapy Treatment Other Other Manual Treatments LE MMT PT-OP-T Assessment and Plan Start: 03/01/18 16:29 Freq: Status: Active Protocol: Document 04/01/18 13:45 [facility] (Rec: 04/01/18 18:02 [facility] [email or web address]) Physical Therapy Assessment Progress Towards Goals Progress Towards Goals Progressing Toward Goals Assessment Summary Assessment Pt with improvement to 1,040 ft with the 6 Minute Walk Test today (823 ft on initial evaluation), which demonstrates improved gait speed and activity tolerance, although still fatigued after testing. Pt's LE strength is showing improvements throughout , including L knee and ankle strengthening with resistance training. Pt would greatly benefit from the continuation under the current plan of care to continue to progress toward goals. Physical Therapy Plan Frequency and Duration Frequency of Treatment 2x/Week Duration of Treatment 12 weeks Plan of Care Start Date 02/26/18 Plan of Care End Date 05/21/18 Next Visit Focus/Plan Next Note Type Treatment Note Next Visit Plan balance and continued LE strengthening
--- NOTE | 2018-04-08 13:45 | PT.OTN ---
Current Diagnoses Polyneuropathy, unspecified (04/08/18) Other abnormalities of gait and mobility (04/08/18) Physical Therapy Treatment Note PT-OP-A Visit Information Start: 03/01/18 16:29 Freq: Status: Active Protocol: Document 04/08/18 13:45 [facility] (Rec: 04/08/18 14:37 [facility] [email or web address]) Out-Patient Physical Therapy Visit Information Visit Information Visit Type Treatment Note Visit Start Time 13:45 Visit Stop Time 14:30 Total Visit Minutes 45 Visit Number 11 Number of DIRECTOR UTILIZATION MANAGEMENT Visits 0 Evaluation Information Evaluation Date 02/26/18 PT-OP-B Current Condition Start: 03/01/18 16:29 Freq: Status: Active Protocol: Document 02/26/18 11:15 [facility] (Rec: 03/01/18 16:54 [facility] [email or web address]) Current Condition History of Current Condition Onset Date progressively worsening over the past year Current Complaints weakness, difficulty with walking, imbalance History of Current Condition Pt is a 78 y/o male presenting to physical therapy with a c/ o progressive weakness and numbness due to neuropathy in bilateral feet which has decrease his ability to balance and ambulate outdoors. Pt's presents today with the pt, stating that he is having more difficulty walking outside. He had a fall at home in August of 2017 with increased LE pain. Pt would like to improve his walking ability to be able to take his dog to the dog park and walk for >10 minutes without high levels of fatigue. Treatment Goals Patient/Caregiver Goals be able to walk >10 min at a time, improve balance and strength Prior Functional Status Baseline Function- Gait modified indep. gait outdoors to dog park from home-10-15 min walk outside Current Functional Impairments (Reported) Functional Limitations- Mobility/Gait requires prolonged rest after ambulating <10 min, difficulty with uneven terrain. Personal Factors Other Personal Factors That May Effect memory impairment, hearing Therapy/Recovery impairment, progressing neuropathy BLE PT-OP-C Subjective Start: 03/01/18 16:29 Freq: Status: Active Protocol: Document 04/08/18 13:45 [facility] (Rec: 04/08/18 14:37 [facility] [email or web address]) OP-PT Subjective Patient Comments Patient Comments Pt states his legs feel a little weak today, L>R. PT-OP-D Balance Start: 03/01/18 16:29 Freq: Status: Active Protocol: Document 02/26/18 11:15 [facility] (Rec: 03/01/18 16:54 [facility] [email or web address]) Balance Tests Semi-Tandem Standing Semi-Tandem Standing Balance 1 sec R posterior, 2 sec L posterior PT-OP-E Functional Tests Start: 03/01/18 16:29 Freq: Status: Active Protocol: Document 04/01/18 13:45 [facility] (Rec: 04/01/18 18:02 [facility] [email or web address]) Functional Tests 6 Minute Walk Test Distance 1,040 ft Device Used none PT-OP-G Mobility & Gait Start: 03/01/18 16:29 Freq: Status: Active Protocol: Document 02/26/18 11:15 [facility] (Rec: 03/01/18 16:54 [facility] [email or web address]) OP Gait Assessment Gait Deviations General Gait Pattern Decreased Stride Length Decreased Feet Clearance Flexed Trunk Wide Based Gait Factors Limiting Gait Function Factors Limiting Gait Function Decreased Activity Tolerance Decreased Sensation Decreased Strength Poor Balance PT-OP-H Neuro Start: 03/01/18 16:29 Freq: Status: Active Protocol: Document 02/26/18 11:15 [facility] (Rec: 03/01/18 16:54 [facility] [email or web address]) Sensation Evaluation Comments Summary Comments impaired bilateral lower calf to feet PT-OP-J Posture/Palpation/Skin Start: 03/01/18 16:29 Freq: Status: Active Protocol: Document 02/26/18 11:15 [facility] (Rec: 03/01/18 16:54 [facility] [email or web address]) Skin Assessment Other Assessments Skin Assessment Comments purplish color bilateral feet; callus lateral plantar surface 5th MT (closed) L foot PT-OP-M Strength Start: 03/01/18 16:29 Freq: Status: Active Protocol: Document 04/01/18 13:45 [facility] (Rec: 04/01/18 18:02 [facility] [email or web address]) Hip Strength Hip Manual Muscle Testing Right Flexion (L2) 4+ Good+ External Rotation 4 Good Internal Rotation 4 Good Left Flexion (L2) 4+ Good+ External Rotation 4- Good- Internal Rotation 4 Good Knee Strength Knee Manual Muscle Testing Right Flexion (S2) 4+ Good+ Extension (L3) 5 Normal Left Flexion (S2) 4+ Good+ Extension (L3) 4 Good Ankle/Foot Strength Ankle and Foot Manual Muscle Testing Right Dorsiflexion (L4) 4+ Good+ Inversion 4+ Good+ Eversion (S1) 4 Good Left Dorsiflexion (L4) 4 Good Inversion 4 Good Eversion (S1) 4 Good PT-OP-Q Treatments Start: 03/01/18 16:29 Freq: Status: Active Protocol: Document 04/08/18 13:45 [facility] (Rec: 04/08/18 14:37 [facility] [email or web address]) Cardio Equipment Recumbent Stepper (Sci-Fit) Duration (Minutes) 10 Resistance 4 Seat Position 16 Gym Equipment Shuttle Balance 1 Details A/P normal stance, semi-tandem , lateral normal stance Reps/Duration 10 min Comments RED Therapeutic Exercises Sitting Exercises 3 way ankle Sitting Exercise Name ankle DF, inv, eversion Side bilateral Resistance L2 Reps/Minutes x20 each Standing Exercises resisted walk Standing Exercise Name lateral walking Side bilateral Resistance L3 Reps/Minutes 2 laps lunges Side bilateral Equipment Used // bars Reps/Minutes 8 each HS stretch Side bilateral Equipment Used stairs Reps/Minutes 2x30 sec each HC stretch Side bilateral Equipment Used DEMIAN Reps/Minutes 2x1 min Neuro Re-Education Treatment Balance Activities SLS Surface firm Equipment // bars Reps/Duration 1 min each (multiple attempts required) Other Activities heel toe gait Details heel-toe gait forward and backward EO and EC Reps/Duration 4 laps in // bars PT-OP-T Assessment and Plan Start: 03/01/18 16:29 Freq: Status: Active Protocol: Document 04/08/18 13:45 [facility] (Rec: 04/08/18 14:37 [facility] [email or web address]) Physical Therapy Assessment Assessment Summary Assessment Pt with improved tolerance to eversion strengthening with less fatigue and cuing required. Pt continues to have difficulty with impaired standing balance and ankle strategy with unstable and dynamic balance. Physical Therapy Plan Frequency and Duration Frequency of Treatment 2x/Week Duration of Treatment 12 weeks Plan of Care Start Date 02/26/18 Plan of Care End Date 05/21/18 Next Visit Focus/Plan Next Note Type Treatment Note Next Visit Plan advance balance and gait as tolerated.
--- NOTE | 2018-04-10 13:45 | PT.OTN ---
Current Diagnoses Polyneuropathy, unspecified (04/10/18) Other abnormalities of gait and mobility (04/10/18) Physical Therapy Treatment Note PT-OP-A Visit Information Start: 03/01/18 16:29 Freq: Status: Active Protocol: Document 04/10/18 13:45 [facility] (Rec: 04/10/18 14:36 [facility] [email or web address]) Out-Patient Physical Therapy Visit Information Visit Information Visit Type Treatment Note Visit Start Time 13:45 Visit Stop Time 14:29 Total Visit Minutes 44 Visit Number 12 Number of POULTRY TENDER Visits 0 Evaluation Information Evaluation Date 02/26/18 PT-OP-B Current Condition Start: 03/01/18 16:29 Freq: Status: Active Protocol: Document 02/26/18 11:15 [facility] (Rec: 03/01/18 16:54 [facility] [email or web address]) Current Condition History of Current Condition Onset Date progressively worsening over the past year Current Complaints weakness, difficulty with walking, imbalance History of Current Condition Pt is a 78 y/o male presenting to physical therapy with a c/ o progressive weakness and numbness due to neuropathy in bilateral feet which has decrease his ability to balance and ambulate outdoors. Pt's presents today with the pt, stating that he is having more difficulty walking outside. He had a fall at home in August of 2017 with increased LE pain. Pt would like to improve his walking ability to be able to take his dog to the dog park and walk for >10 minutes without high levels of fatigue. Treatment Goals Patient/Caregiver Goals be able to walk >10 min at a time, improve balance and strength Prior Functional Status Baseline Function- Gait modified indep. gait outdoors to dog park from home-10-15 min walk outside Current Functional Impairments (Reported) Functional Limitations- Mobility/Gait requires prolonged rest after ambulating <10 min, difficulty with uneven terrain. Personal Factors Other Personal Factors That May Effect memory impairment, hearing Therapy/Recovery impairment, progressing neuropathy BLE PT-OP-C Subjective Start: 03/01/18 16:29 Freq: Status: Active Protocol: Document 04/10/18 13:45 [facility] (Rec: 04/10/18 14:36 [facility] [email or web address]) OP-PT Subjective Patient Comments Patient Comments Pt states that he is feeling better with his walking, even with the snow. PT-OP-D Balance Start: 03/01/18 16:29 Freq: Status: Active Protocol: Document 02/26/18 11:15 [facility] (Rec: 03/01/18 16:54 [facility] [email or web address]) Balance Tests Semi-Tandem Standing Semi-Tandem Standing Balance 1 sec R posterior, 2 sec L posterior PT-OP-E Functional Tests Start: 03/01/18 16:29 Freq: Status: Active Protocol: Document 04/01/18 13:45 [facility] (Rec: 04/01/18 18:02 [facility] [email or web address]) Functional Tests 6 Minute Walk Test Distance 1,040 ft Device Used none PT-OP-G Mobility & Gait Start: 03/01/18 16:29 Freq: Status: Active Protocol: Document 02/26/18 11:15 [facility] (Rec: 03/01/18 16:54 [facility] [email or web address]) OP Gait Assessment Gait Deviations General Gait Pattern Decreased Stride Length Decreased Feet Clearance Flexed Trunk Wide Based Gait Factors Limiting Gait Function Factors Limiting Gait Function Decreased Activity Tolerance Decreased Sensation Decreased Strength Poor Balance PT-OP-H Neuro Start: 03/01/18 16:29 Freq: Status: Active Protocol: Document 02/26/18 11:15 [facility] (Rec: 03/01/18 16:54 [facility] [email or web address]) Sensation Evaluation Comments Summary Comments impaired bilateral lower calf to feet PT-OP-J Posture/Palpation/Skin Start: 03/01/18 16:29 Freq: Status: Active Protocol: Document 02/26/18 11:15 [facility] (Rec: 03/01/18 16:54 [facility] [email or web address]) Skin Assessment Other Assessments Skin Assessment Comments purplish color bilateral feet; callus lateral plantar surface 5th MT (closed) L foot PT-OP-M Strength Start: 03/01/18 16:29 Freq: Status: Active Protocol: Document 04/01/18 13:45 [facility] (Rec: 04/01/18 18:02 [facility] [email or web address]) Hip Strength Hip Manual Muscle Testing Right Flexion (L2) 4+ Good+ External Rotation 4 Good Internal Rotation 4 Good Left Flexion (L2) 4+ Good+ External Rotation 4- Good- Internal Rotation 4 Good Knee Strength Knee Manual Muscle Testing Right Flexion (S2) 4+ Good+ Extension (L3) 5 Normal Left Flexion (S2) 4+ Good+ Extension (L3) 4 Good Ankle/Foot Strength Ankle and Foot Manual Muscle Testing Right Dorsiflexion (L4) 4+ Good+ Inversion 4+ Good+ Eversion (S1) 4 Good Left Dorsiflexion (L4) 4 Good Inversion 4 Good Eversion (S1) 4 Good PT-OP-Q Treatments Start: 03/01/18 16:29 Freq: Status: Active Protocol: Document 04/10/18 13:45 [facility] (Rec: 04/10/18 14:36 [facility] [email or web address]) Cardio Equipment Recumbent Stepper (Sci-Fit) Duration (Minutes) 10 Resistance 4 Seat Position 16 Gym Equipment Cable Column (Body Solid) Leg Extension Resistance 30 lbs Reps/Time x15 Leg Curl Resistance 40 lbs Reps/Time x15 Shuttle Recovery Unilateral Squats Resistance 50 lbs Shuttle Recovery Platform Stable Reps/Time to fatigue Bilateral Squats Resistance 87 lbs Shuttle Recovery Platform Stable Reps/Time to fatigue Shuttle Balance 1 Details A/P normal stance, semi-tandem , lateral normal stance Reps/Duration 6 min Comments RED Therapeutic Exercises Standing Exercises HS stretch Side bilateral Equipment Used stairs Reps/Minutes 2x30 sec each HC stretch Side bilateral Equipment Used DEMIAN Reps/Minutes 2x1 min Neuro Re-Education Treatment Balance Activities SLS Surface firm Equipment // bars Reps/Duration 1 min each (multiple attempts required) Other Activities hurdles Details hurdles Reps/Duration 5 laps in // bars PT-OP-T Assessment and Plan Start: 03/01/18 16:29 Freq: Status: Active Protocol: Document 04/10/18 13:45 [facility] (Rec: 04/10/18 14:36 [facility] [email or web address]) Physical Therapy Assessment Assessment Summary Assessment Pt with increased lateral sway standing on Shuttle Balance Board. Pt with improved SLS on the LLE, using the parallel bars less for UE stability. Physical Therapy Plan Frequency and Duration Frequency of Treatment 2x/Week Duration of Treatment 12 weeks Plan of Care Start Date 02/26/18 Plan of Care End Date 05/21/18 Next Visit Focus/Plan Next Note Type Treatment Note Next Visit Plan prog. LE stability and balance
--- NOTE | 2018-04-15 13:45 | PT.OTN ---
Current Diagnoses Polyneuropathy, unspecified (04/15/18) Other abnormalities of gait and mobility (04/15/18) Physical Therapy Treatment Note PT-OP-A Visit Information Start: 03/01/18 16:29 Freq: Status: Active Protocol: Document 04/15/18 13:45 [facility] (Rec: 04/15/18 14:31 [facility] [email or web address]) Out-Patient Physical Therapy Visit Information Visit Information Visit Type Treatment Note Visit Start Time 13:45 Visit Stop Time 14:26 Total Visit Minutes 41 Visit Number 13 Number of FERRULER Visits 0 Evaluation Information Evaluation Date 02/26/18 PT-OP-B Current Condition Start: 03/01/18 16:29 Freq: Status: Active Protocol: Document 02/26/18 11:15 [facility] (Rec: 03/01/18 16:54 [facility] [email or web address]) Current Condition History of Current Condition Onset Date progressively worsening over the past year Current Complaints weakness, difficulty with walking, imbalance History of Current Condition Pt is a 78 y/o male presenting to physical therapy with a c/ o progressive weakness and numbness due to neuropathy in bilateral feet which has decrease his ability to balance and ambulate outdoors. Pt's presents today with the pt, stating that he is having more difficulty walking outside. He had a fall at home in August of 2017 with increased LE pain. Pt would like to improve his walking ability to be able to take his dog to the dog park and walk for >10 minutes without high levels of fatigue. Treatment Goals Patient/Caregiver Goals be able to walk >10 min at a time, improve balance and strength Prior Functional Status Baseline Function- Gait modified indep. gait outdoors to dog park from home-10-15 min walk outside Current Functional Impairments (Reported) Functional Limitations- Mobility/Gait requires prolonged rest after ambulating <10 min, difficulty with uneven terrain. Personal Factors Other Personal Factors That May Effect memory impairment, hearing Therapy/Recovery impairment, progressing neuropathy BLE PT-OP-C Subjective Start: 03/01/18 16:29 Freq: Status: Active Protocol: Document 04/15/18 13:45 [facility] (Rec: 04/15/18 14:31 [facility] [email or web address]) OP-PT Subjective Patient Comments Patient Comments Pt states that his L leg feels stronger, but still occasionally fatigues more rapidly compared to the R. PT-OP-D Balance Start: 03/01/18 16:29 Freq: Status: Active Protocol: Document 02/26/18 11:15 [facility] (Rec: 03/01/18 16:54 [facility] [email or web address]) Balance Tests Semi-Tandem Standing Semi-Tandem Standing Balance 1 sec R posterior, 2 sec L posterior PT-OP-E Functional Tests Start: 03/01/18 16:29 Freq: Status: Active Protocol: Document 04/01/18 13:45 [facility] (Rec: 04/01/18 18:02 [facility] [email or web address]) Functional Tests 6 Minute Walk Test Distance 1,040 ft Device Used none PT-OP-G Mobility & Gait Start: 03/01/18 16:29 Freq: Status: Active Protocol: Document 02/26/18 11:15 [facility] (Rec: 03/01/18 16:54 [facility] [email or web address]) OP Gait Assessment Gait Deviations General Gait Pattern Decreased Stride Length Decreased Feet Clearance Flexed Trunk Wide Based Gait Factors Limiting Gait Function Factors Limiting Gait Function Decreased Activity Tolerance Decreased Sensation Decreased Strength Poor Balance PT-OP-H Neuro Start: 03/01/18 16:29 Freq: Status: Active Protocol: Document 02/26/18 11:15 [facility] (Rec: 03/01/18 16:54 [facility] [email or web address]) Sensation Evaluation Comments Summary Comments impaired bilateral lower calf to feet PT-OP-J Posture/Palpation/Skin Start: 03/01/18 16:29 Freq: Status: Active Protocol: Document 02/26/18 11:15 [facility] (Rec: 03/01/18 16:54 [facility] [email or web address]) Skin Assessment Other Assessments Skin Assessment Comments purplish color bilateral feet; callus lateral plantar surface 5th MT (closed) L foot PT-OP-M Strength Start: 03/01/18 16:29 Freq: Status: Active Protocol: Document 04/01/18 13:45 [facility] (Rec: 04/01/18 18:02 [facility] [email or web address]) Hip Strength Hip Manual Muscle Testing Right Flexion (L2) 4+ Good+ External Rotation 4 Good Internal Rotation 4 Good Left Flexion (L2) 4+ Good+ External Rotation 4- Good- Internal Rotation 4 Good Knee Strength Knee Manual Muscle Testing Right Flexion (S2) 4+ Good+ Extension (L3) 5 Normal Left Flexion (S2) 4+ Good+ Extension (L3) 4 Good Ankle/Foot Strength Ankle and Foot Manual Muscle Testing Right Dorsiflexion (L4) 4+ Good+ Inversion 4+ Good+ Eversion (S1) 4 Good Left Dorsiflexion (L4) 4 Good Inversion 4 Good Eversion (S1) 4 Good PT-OP-Q Treatments Start: 03/01/18 16:29 Freq: Status: Active Protocol: Document 04/15/18 13:45 [facility] (Rec: 04/15/18 14:31 [facility] [email or web address]) Cardio Equipment Recumbent Stepper (Sci-Fit) Duration (Minutes) 10 Resistance 4 Seat Position 16 Other 1.90 miles Gym Equipment Shuttle Recovery Unilateral Squats Resistance 50 lbs Shuttle Recovery Platform Stable Reps/Time to fatigue Bilateral Squats Resistance 87 lbs Shuttle Recovery Platform Stable Reps/Time to fatigue Therapeutic Exercises Sitting Exercises 3 way ankle Sitting Exercise Name ankle DF, inv, eversion Side bilateral Resistance L2 Reps/Minutes x20 each Standing Exercises HS stretch Side bilateral Equipment Used stairs Reps/Minutes 2x30 sec each HC stretch Side bilateral Equipment Used DEMIAN Reps/Minutes 2x1 min Heel raises Standing Exercise Name alternating heel/toe raises Side bilateral Reps/Minutes x25 PT-OP-T Assessment and Plan Start: 03/01/18 16:29 Freq: Status: Active Protocol: Document 04/15/18 13:45 [facility] (Rec: 04/15/18 14:31 [facility] [email or web address]) Physical Therapy Assessment Assessment Summary Assessment Pt requires cuing for appropriate ankle motion with resistance, and UE assistance with alternating heel and toe raises due to poor standing balance. Physical Therapy Plan Frequency and Duration Frequency of Treatment 2x/Week Duration of Treatment 12 weeks Plan of Care Start Date 02/26/18 Plan of Care End Date 05/21/18 Next Visit Focus/Plan Next Note Type Treatment Note Next Visit Plan cont. to advance standing balance and LE strengthening
--- NOTE | 2018-04-17 13:48 | PT.OTN ---
Current Diagnoses Polyneuropathy, unspecified (04/17/18) Other abnormalities of gait and mobility (04/17/18) Physical Therapy Treatment Note PT-OP-A Visit Information Start: 03/01/18 16:29 Freq: Status: Active Protocol: Document 04/17/18 13:48 [facility] (Rec: 04/17/18 14:46 [facility] [email or web address]) Out-Patient Physical Therapy Visit Information Visit Information Visit Type Treatment Note Visit Start Time 13:48 Visit Stop Time 14:30 Total Visit Minutes 42 Visit Number 14 Number of DICE SPOTTER Visits 0 Evaluation Information Evaluation Date 02/26/18 PT-OP-B Current Condition Start: 03/01/18 16:29 Freq: Status: Active Protocol: Document 02/26/18 11:15 [facility] (Rec: 03/01/18 16:54 [facility] [email or web address]) Current Condition History of Current Condition Onset Date progressively worsening over the past year Current Complaints weakness, difficulty with walking, imbalance History of Current Condition Pt is a 78 y/o male presenting to physical therapy with a c/ o progressive weakness and numbness due to neuropathy in bilateral feet which has decrease his ability to balance and ambulate outdoors. Pt's presents today with the pt, stating that he is having more difficulty walking outside. He had a fall at home in August of 2017 with increased LE pain. Pt would like to improve his walking ability to be able to take his dog to the dog park and walk for >10 minutes without high levels of fatigue. Treatment Goals Patient/Caregiver Goals be able to walk >10 min at a time, improve balance and strength Prior Functional Status Baseline Function- Gait modified indep. gait outdoors to dog park from home-10-15 min walk outside Current Functional Impairments (Reported) Functional Limitations- Mobility/Gait requires prolonged rest after ambulating <10 min, difficulty with uneven terrain. Personal Factors Other Personal Factors That May Effect memory impairment, hearing Therapy/Recovery impairment, progressing neuropathy BLE PT-OP-C Subjective Start: 03/01/18 16:29 Freq: Status: Active Protocol: Document 04/17/18 13:48 [facility] (Rec: 04/17/18 14:46 [facility] [email or web address]) OP-PT Subjective Patient Comments Patient Comments Pt reports he has been back to walking outside, no falls. PT-OP-D Balance Start: 03/01/18 16:29 Freq: Status: Active Protocol: Document 04/17/18 13:48 [facility] (Rec: 04/17/18 14:46 [facility] [email or web address]) Balance Tests Other Other Balance Tests Performed Increased weight shift to the R with lateral balance on Shuttle Balance Board. PT-OP-E Functional Tests Start: 03/01/18 16:29 Freq: Status: Active Protocol: Document 04/01/18 13:45 [facility] (Rec: 04/01/18 18:02 [facility] [email or web address]) Functional Tests 6 Minute Walk Test Distance 1,040 ft Device Used none PT-OP-G Mobility & Gait Start: 03/01/18 16:29 Freq: Status: Active Protocol: Document 02/26/18 11:15 [facility] (Rec: 03/01/18 16:54 [facility] [email or web address]) OP Gait Assessment Gait Deviations General Gait Pattern Decreased Stride Length Decreased Feet Clearance Flexed Trunk Wide Based Gait Factors Limiting Gait Function Factors Limiting Gait Function Decreased Activity Tolerance Decreased Sensation Decreased Strength Poor Balance PT-OP-H Neuro Start: 03/01/18 16:29 Freq: Status: Active Protocol: Document 02/26/18 11:15 [facility] (Rec: 03/01/18 16:54 [facility] [email or web address]) Sensation Evaluation Comments Summary Comments impaired bilateral lower calf to feet PT-OP-J Posture/Palpation/Skin Start: 03/01/18 16:29 Freq: Status: Active Protocol: Document 02/26/18 11:15 [facility] (Rec: 03/01/18 16:54 [facility] [email or web address]) Skin Assessment Other Assessments Skin Assessment Comments purplish color bilateral feet; callus lateral plantar surface 5th MT (closed) L foot PT-OP-M Strength Start: 03/01/18 16:29 Freq: Status: Active Protocol: Document 04/01/18 13:45 [facility] (Rec: 04/01/18 18:02 [facility] [email or web address]) Hip Strength Hip Manual Muscle Testing Right Flexion (L2) 4+ Good+ External Rotation 4 Good Internal Rotation 4 Good Left Flexion (L2) 4+ Good+ External Rotation 4- Good- Internal Rotation 4 Good Knee Strength Knee Manual Muscle Testing Right Flexion (S2) 4+ Good+ Extension (L3) 5 Normal Left Flexion (S2) 4+ Good+ Extension (L3) 4 Good Ankle/Foot Strength Ankle and Foot Manual Muscle Testing Right Dorsiflexion (L4) 4+ Good+ Inversion 4+ Good+ Eversion (S1) 4 Good Left Dorsiflexion (L4) 4 Good Inversion 4 Good Eversion (S1) 4 Good PT-OP-Q Treatments Start: 03/01/18 16:29 Freq: Status: Active Protocol: Document 04/17/18 13:48 [facility] (Rec: 04/17/18 14:46 [facility] [email or web address]) Cardio Equipment Recumbent Stepper (Sci-Fit) Duration (Minutes) 10 Resistance 4 Seat Position 16 Other 1.80 miles Gym Equipment Shuttle Recovery Unilateral Squats Resistance 50 lbs Shuttle Recovery Platform Stable Reps/Time to fatigue Bilateral Squats Resistance 87 lbs Shuttle Recovery Platform Stable Reps/Time to fatigue Shuttle Balance 1 Details A/P normal stance, semi-tandem , lateral normal stance Reps/Duration 7 min Comments RED Therapeutic Exercises Sitting Exercises 3 way ankle Sitting Exercise Name ankle DF, inv, eversion Side bilateral Resistance L2 Reps/Minutes x20 each Standing Exercises psoas stretch Side bilateral Equipment Used stairs Reps/Minutes 2x30 sec each HS stretch Side bilateral Equipment Used stairs Reps/Minutes 2x30 sec each HC stretch Side bilateral Equipment Used DEMIAN Reps/Minutes 2x1 min Neuro Re-Education Treatment Other Activities uneven surfaces Details gait on various pods and foam pads with yoga mat over top Reps/Duration 6 laps @ standing bar Comments UE required PT-OP-T Assessment and Plan Start: 03/01/18 16:29 Freq: Status: Active Protocol: Document 04/17/18 13:48 [facility] [address] (Rec: 04/17/18 14:46 [facility] [email or web address]) Physical Therapy Assessment Assessment Summary Assessment Pt with tendency to weigh bear greater to the R with lateral balance on the unstable Shuttle Balance Board, indicating that he likely WB on the RLE greater when challenged with stability during standing and possibly walking. Pt's strength in B ankles is improving. Physical Therapy Plan Frequency and Duration Frequency of Treatment 2x/Week Duration of Treatment 12 weeks Plan of Care Start Date 02/26/18 Plan of Care End Date 05/21/18 Next Visit Focus/Plan Next Note Type Treatment Note Next Visit Plan dynamic balance, gait, LE strengthening
--- NOTE | 2018-05-13 15:34 | PT.OTN ---
Current Diagnoses Polyneuropathy, unspecified (05/13/18) Other abnormalities of gait and mobility (05/13/18) Physical Therapy Treatment Note PT-OP-A Visit Information Start: 03/01/18 16:29 Freq: Status: Active Protocol: Document 05/13/18 13:45 BS (Rec: 05/13/18 15:02 BS [email or web address]) Out-Patient Physical Therapy Visit Information Visit Information Visit Start Time 01:45 Visit Stop Time 02:27 Total Visit Minutes 42 Visit Number 15 Number of DRYWALL PROFESSIONAL Visits 0 Evaluation Information Evaluation Date 02/26/18 PT-OP-B Current Condition Start: 03/01/18 16:29 Freq: Status: Active Protocol: Document 02/26/18 11:15 RCC (Rec: 03/01/18 16:54 RCC [email or web address]) Current Condition History of Current Condition Onset Date progressively worsening over the past year Current Complaints weakness, difficulty with walking, imbalance History of Current Condition Pt is a 78 y/o male presenting to physical therapy with a c/ o progressive weakness and numbness due to neuropathy in bilateral feet which has decrease his ability to balance and ambulate outdoors. Pt's presents today with the pt, stating that he is having more difficulty walking outside. He had a fall at home in August of 2017 with increased LE pain. Pt would like to improve his walking ability to be able to take his dog to the dog park and walk for >10 minutes without high levels of fatigue. Treatment Goals Patient/Caregiver Goals be able to walk >10 min at a time, improve balance and strength Prior Functional Status Baseline Function- Gait modified indep. gait outdoors to dog park from home-10-15 min walk outside Current Functional Impairments (Reported) Functional Limitations- Mobility/Gait requires prolonged rest after ambulating <10 min, difficulty with uneven terrain. Personal Factors Other Personal Factors That May Effect memory impairment, hearing Therapy/Recovery impairment, progressing neuropathy BLE PT-OP-C Subjective Start: 03/01/18 16:29 Freq: Status: Active Protocol: Document 05/13/18 13:45 BS (Rec: 05/13/18 15:02 BS [email or web address]) OP-PT Subjective Patient Comments Patient Comments abnPt reports that his B LE weakness/neuropathy continues to limit his walking duration and balance. No falls. Tipped back in chair last month and has not been seen since due to cervical limitations /pain. Pt reports that he is no longer having neck pain and his ROM is getting better. PT-OP-D Balance Start: 03/01/18 16:29 Freq: Status: Active Protocol: Document 04/17/18 13:48 RCC (Rec: 04/17/18 14:46 RCC [email or web address]) Balance Tests Other Other Balance Tests Performed Increased weight shift to the R with lateral balance on Shuttle Balance Board. PT-OP-E Functional Tests Start: 03/01/18 16:29 Freq: Status: Active Protocol: Document 05/13/18 13:45 BS (Rec: 05/13/18 15:02 BS [email or web address]) Functional Tests Dynamic Gait Index (DGI) Score 14/24 DGI Impairment Rating 40 to <60% Impaired (Score 10- 14) PT-OP-G Mobility & Gait Start: 03/01/18 16:29 Freq: Status: Active Protocol: Document 05/13/18 13:45 BS (Rec: 05/13/18 15:02 BS [email or web address]) OP Gait Assessment Gait Gait Assistance Required: Independent Gait Deviations General Gait Pattern Decreased Stride Length Decreased Feet Clearance Comments Gait Comments Pt arrives to PT without use of AD, although he reports that he occasionally uses bilateral walking sticks to maintain balance when walking dog outdoors on even ground. Pt exhibits decreased step length, decreased hip flexion/ toe clearance bilaterally but is stable. Slight postural instability with change in speed/direction with gait. Stair Climbing Evaluation Evaluation Level of Assist On Stairs Independent Devices Stair Climbing Assistive Devices Left Railing Right Railing Technique/Endurance Stair Climbing Direction Ascend and Descend Stair Climbing Technique Step Over Step Number of Steps Climbed 4 Comments Stair Climbing Comments Pt requires use of B handrails with reciprocal ascent/ descent. Pt reports that he avoids using stairs at home. No SHERI home. 1 flight to upstairs, but lives on 1st floor. PT-OP-H Neuro Start: 03/01/18 16:29 Freq: Status: Active Protocol: Document 02/26/18 11:15 RCC (Rec: 03/01/18 16:54 RCC [email or web address]) Sensation Evaluation Comments Summary Comments impaired bilateral lower calf to feet PT-OP-J Posture/Palpation/Skin Start: 03/01/18 16:29 Freq: Status: Active Protocol: Document 02/26/18 11:15 RCC (Rec: 03/01/18 16:54 RCC [email or web address]) Skin Assessment Other Assessments Skin Assessment Comments purplish color bilateral feet; callus lateral plantar surface 5th MT (closed) L foot PT-OP-M Strength Start: 03/01/18 16:29 Freq: Status: Active Protocol: Document 05/13/18 13:45 AMB (Rec: 05/13/18 14:03 AMB [id number]) Hip Strength Hip Manual Muscle Testing Right Flexion (L2) 5 Normal Abduction 3- Fair- External Rotation 4+ Good+ Internal Rotation 4+ Good+ Left Flexion (L2) 5 Normal Abduction 5 Normal External Rotation 4+ Good+ Internal Rotation 4+ Good+ Knee Strength Knee Manual Muscle Testing Right Flexion (S2) 4+ Good+ Extension (L3) 5 Normal Left Flexion (S2) 4+ Good+ Extension (L3) 5 Normal PT-OP-Q Treatments Start: 03/01/18 16:29 Freq: Status: Active Protocol: Document 05/13/18 13:45 BS (Rec: 05/13/18 15:02 BS [email or web address]) Cardio Equipment Recumbent Stepper (Sci-Fit) Duration (Minutes) 7 Resistance 4 Seat Position 16 Other 1.0 Neuro Re-Education Treatment Other Activities Dynamic Gait Index Details DGI completed Comments . A score of <19 indicated incresaed risk for falls. 1 point improvement since IE. PT-OP-T Assessment and Plan Start: 03/01/18 16:29 Freq: Status: Active Protocol: Document 05/13/18 13:45 BS (Rec: 05/13/18 15:02 BS [email or web address]) Physical Therapy Assessment Goals Home exercise- walking program Impairment limited ability to ambulate outdoors. Pre Billing Specialist Goal (LTG) Pt will participate in daily ambulation outdoors on uneven terrain for at least 15 min to perform recreational activities such as taking/ walking his do to/from the dog park. NOT MET, PROGRESSING TOWARD. LTG Duration 12 weeks 6 Minute Walk Test Impairment 823 ft Short Term Goal (STG) 950 ft or greater with 6 Minute Walk Test to demonstrate improvements with gait tolerance. STG Duration 6 weeks Prison Goal (LTG) 1100 ft or greater with 6 Minute Walk Test to demonstrate improvements with gait tolerance. NOT ASSESSED TODAY PER PT REQUEST due to fatigue. LE weakness Impairment LE weakness to manual muscle testing (MMT) Prison Goal (LTG) LE MMT grossly 4+/5 or greater to improve tolerance to ambulating on uneven terrain. MET 05/13/18. LTG Duration 12 weeks DGI Impairment Dynamic Gait Index 13/24 Short Term Goal (STG) Score of at least 16/24 with the DGI to demonstrate improvements with functional gait and balance STG Duration 6 weeks Prison Goal (LTG) Score of at least 19/24 with the DGI to demonstrate improvements with functional gait and balance, and decrease fall risk. NOT MET. DGI score 05/13/18 was 14/24. LTG Duration 12 weeks Assessment Summary Assessment Pt has not been seen for PT since 04/17/18 following a fall backward in chair, resulting in neck pain and limited ROM. Pt reports that he is no longer having neck pain and states his neck ROM is functional and only slightly limited with extension. Dynamic gait index completed today, score 14/24 indicating increased risk for falls. B LE strength MMT all WFL with the exception of R hip abduction of 3-/5. Pt's dynamic balance is of concern and B LE muscle endurance limits his walking duration. Pt continues to benefit from skilled PT to address dynamic postural instability and B LE strength/ endurance to decrease fall risk and improve safety with gait. Physical Therapy Plan Frequency and Duration Frequency of Treatment 2x/Week Duration of Treatment 10-12 weeks Plan of Care Start Date 05/13/18 Plan of Care End Date 08/05/18 Next Visit Focus/Plan Next Note Type Progress Note Next Visit Plan dynamic balance, gait, B LE strengthening/endurance.
--- NOTE | 2018-05-13 15:35 | PT.OPPOC ---
Current Diagnoses Polyneuropathy, unspecified (05/13/18) Other abnormalities of gait and mobility (05/13/18) Provider Visit Care Team Role Provider Type Emir Moya MD Attending Provider Physician Primary Care Provider Specialty: Internal Medicine Address: [address] [place] [address], [id number] Email: [email or web address] Plan Of Care PT-OP-T Assessment and Plan Start: 03/01/18 16:29 Freq: Status: Active Protocol: Document 05/13/18 13:45 BS (Rec: 05/13/18 15:02 BS [email or web address]) Physical Therapy Assessment Goals Home exercise- walking program Impairment limited ability to ambulate outdoors. Prison Goal (LTG) Pt will participate in daily ambulation outdoors on uneven terrain for at least 15 min to perform recreational activities such as taking/ walking his do to/from the dog park. NOT MET, PROGRESSING TOWARD. LTG Duration 12 weeks 6 Minute Walk Test Impairment 823 ft Short Term Goal (STG) 950 ft or greater with 6 Minute Walk Test to demonstrate improvements with gait tolerance. STG Duration 6 weeks Director Of Architecture Goal (LTG) 1100 ft or greater with 6 Minute Walk Test to demonstrate improvements with gait tolerance. NOT ASSESSED TODAY PER PT REQUEST due to fatigue. LE weakness Impairment LE weakness to manual muscle testing (MMT) Director Of Architecture Goal (LTG) LE MMT grossly 4+/5 or greater to improve tolerance to ambulating on uneven terrain. MET 05/13/18. LTG Duration 12 weeks DGI Impairment Dynamic Gait Index 13/24 Short Term Goal (STG) Score of at least 16/24 with the DGI to demonstrate improvements with functional gait and balance STG Duration 6 weeks Prison Goal (LTG) Score of at least 19/24 with the DGI to demonstrate improvements with functional gait and balance, and decrease fall risk. NOT MET. DGI score 05/13/18 was 14/24. LTG Duration 12 weeks Assessment Summary Assessment Pt has not been seen for PT since 04/17/18 following a fall backward in chair, resulting in neck pain and limited ROM. Pt reports that he is no longer having neck pain and states his neck ROM is functional and only slightly limited with extension. Dynamic gait index completed today, score 14/24 indicating increased risk for falls. B LE strength MMT all WFL with the exception of R hip abduction of 3-/5. Pt's dynamic balance is of concern and B LE muscle endurance limits his walking duration. Pt continues to benefit from skilled PT to address dynamic postural instability and B LE strength/ endurance to decrease fall risk and improve safety with gait. Physical Therapy Plan Frequency and Duration Frequency of Treatment 2x/Week Duration of Treatment 10-12 weeks Plan of Care Start Date 05/13/18 Plan of Care End Date 08/05/18 Next Visit Focus/Plan Next Note Type Progress Note Next Visit Plan dynamic balance, gait, B LE strengthening/endurance. Plan of Care Dates Plan of Care Start Date 05/13/18 Plan of Care End Date 08/05/18 Please Sign and Return: I have reviewed this Plan of Care and certify that the skilled therapy services above are required to meet the patient?s needs. Physician Signature Date Printed Name and Credentials Clinical Instructor Signature Printed Name and Credentials
--- NOTE | 2018-05-15 13:03 | PT.OTN ---
Current Diagnoses Polyneuropathy, unspecified (05/15/18) Other abnormalities of gait and mobility (05/15/18) Physical Therapy Treatment Note PT-OP-A Visit Information Start: 03/01/18 16:29 Freq: Status: Active Protocol: Document 05/15/18 11:15 HH (Rec: 05/15/18 13:03 HH [email or web address]) Out-Patient Physical Therapy Visit Information Visit Information Visit Type Treatment Note Visit Start Time 11:15 Visit Stop Time 12:00 Total Visit Minutes 45 Visit Number 16 Number of CARTON STENCILER Visits 0 PT-OP-B Current Condition Start: 03/01/18 16:29 Freq: Status: Active Protocol: Document 02/26/18 11:15 RCC (Rec: 03/01/18 16:54 RCC [email or web address]) Current Condition History of Current Condition Onset Date progressively worsening over the past year Current Complaints weakness, difficulty with walking, imbalance History of Current Condition Pt is a 78 y/o male presenting to physical therapy with a c/ o progressive weakness and numbness due to neuropathy in bilateral feet which has decrease his ability to balance and ambulate outdoors. Pt's presents today with the pt, stating that he is having more difficulty walking outside. He had a fall at home in August of 2017 with increased LE pain. Pt would like to improve his walking ability to be able to take his dog to the dog park and walk for >10 minutes without high levels of fatigue. Treatment Goals Patient/Caregiver Goals be able to walk >10 min at a time, improve balance and strength Prior Functional Status Baseline Function- Gait modified indep. gait outdoors to dog park from home-10-15 min walk outside Current Functional Impairments (Reported) Functional Limitations- Mobility/Gait requires prolonged rest after ambulating <10 min, difficulty with uneven terrain. Personal Factors Other Personal Factors That May Effect memory impairment, hearing Therapy/Recovery impairment, progressing neuropathy BLE PT-OP-C Subjective Start: 03/01/18 16:29 Freq: Status: Active Protocol: Document 05/15/18 11:15 HH (Rec: 05/15/18 13:03 HH [email or web address]) OP-PT Subjective Patient Comments Patient Comments abnPt reports that his B LE weakness/neuropathy continues to limit his walking duration and balance. PT-OP-D Balance Start: 03/01/18 16:29 Freq: Status: Active Protocol: Document 04/17/18 13:48 RCC (Rec: 04/17/18 14:46 RCC [email or web address]) Balance Tests Other Other Balance Tests Performed Increased weight shift to the R with lateral balance on Shuttle Balance Board. PT-OP-E Functional Tests Start: 03/01/18 16:29 Freq: Status: Active Protocol: Document 05/13/18 13:45 BS (Rec: 05/13/18 15:02 BS [email or web address]) Functional Tests Dynamic Gait Index (DGI) Score 14/24 DGI Impairment Rating 40 to <60% Impaired (Score 10- 14) PT-OP-G Mobility & Gait Start: 03/01/18 16:29 Freq: Status: Active Protocol: Document 05/13/18 13:45 BS (Rec: 05/13/18 15:02 BS [email or web address]) OP Gait Assessment Gait Gait Assistance Required: Independent Gait Deviations General Gait Pattern Decreased Stride Length Decreased Feet Clearance Comments Gait Comments Pt arrives to PT without use of AD, although he reports that he occasionally uses bilateral walking sticks to maintain balance when walking dog outdoors on even ground. Pt exhibits decreased step length, decreased hip flexion/ toe clearance bilaterally but is stable. Slight postural instability with change in speed/direction with gait. Stair Climbing Evaluation Evaluation Level of Assist On Stairs Independent Devices Stair Climbing Assistive Devices Left Railing Right Railing Technique/Endurance Stair Climbing Direction Ascend and Descend Stair Climbing Technique Step Over Step Number of Steps Climbed 4 Comments Stair Climbing Comments Pt requires use of B handrails with reciprocal ascent/ descent. Pt reports that he avoids using stairs at home. No SHERI home. 1 flight to upstairs, but lives on 1st floor. PT-OP-H Neuro Start: 03/01/18 16:29 Freq: Status: Active Protocol: Document 02/26/18 11:15 RCC (Rec: 03/01/18 16:54 RCC [email or web address]) Sensation Evaluation Comments Summary Comments impaired bilateral lower calf to feet PT-OP-J Posture/Palpation/Skin Start: 03/01/18 16:29 Freq: Status: Active Protocol: Document 02/26/18 11:15 RCC (Rec: 03/01/18 16:54 RCC [email or web address]) Skin Assessment Other Assessments Skin Assessment Comments purplish color bilateral feet; callus lateral plantar surface 5th MT (closed) L foot PT-OP-M Strength Start: 03/01/18 16:29 Freq: Status: Active Protocol: Document 05/13/18 13:45 AMB (Rec: 05/13/18 14:03 AMB [id number]) Hip Strength Hip Manual Muscle Testing Right Flexion (L2) 5 Normal Abduction 3- Fair- External Rotation 4+ Good+ Internal Rotation 4+ Good+ Left Flexion (L2) 5 Normal Abduction 5 Normal External Rotation 4+ Good+ Internal Rotation 4+ Good+ Knee Strength Knee Manual Muscle Testing Right Flexion (S2) 4+ Good+ Extension (L3) 5 Normal Left Flexion (S2) 4+ Good+ Extension (L3) 5 Normal PT-OP-Q Treatments Start: 03/01/18 16:29 Freq: Status: Active Protocol: Document 05/15/18 11:15 HH (Rec: 05/15/18 13:03 [email or web address]) Therapeutic Exercises Sitting Exercises seated distraction Side bilateral Equipment Used pull up bar Comments seated distraction. seated toe touch Side bilateral Reps/Minutes 20 x2 Comments cues to engage lumbar flexio seated pelvic tilt Side bilateral Reps/Minutes 20 x 2 Comments cues to engage lumbar flexion and extension. Manual Therapy Treatment Soft Tissue Mobilization L/S paraspinals Mobilization Type Cross-Friction Sustained Pressure Trigger Point Release Intensity/Depth Moderate Body Position Sitting Joint Mobilizations seated lumbar flexion Direction flexion bias Grade III Body Position Sitting Reps/Duration 10 x 3 Comments cranial and caudal distraction at l/S PT-OP-T Assessment and Plan Start: 03/01/18 16:29 Freq: Status: Active Protocol: Document 05/15/18 11:15 HH (Rec: 05/15/18 13:03 [email or web address]) Physical Therapy Assessment Assessment Summary Assessment Pt cont c/o sudden onset of weakness/buckling of his B knees. Upon assessment, pt's weakness/buckling sensation are reproduced with trunk extension within 10-20 seconds but reduced with trunk flexion. Pt demonstrates significant ROM loss at lumbar spine possibly due to his use of back support for years. Pt stated My back feels good after stretch and my legs as well. Added pelvic tilt and seated trunk flexion exercises to HEP. Physical Therapy Plan Next Visit Focus/Plan Next Note Type Treatment Note Next Visit Plan reassess pt's symptoms review HEP B LE strengthening/educarance balance training
--- NOTE | 2018-05-19 16:15 | PT.OTN ---
Current Diagnoses Polyneuropathy, unspecified (05/19/18) Other abnormalities of gait and mobility (05/19/18) Physical Therapy Treatment Note PT-OP-A Visit Information Start: 03/01/18 16:29 Freq: Status: Active Protocol: Document 05/19/18 16:03 SA (Rec: 05/19/18 16:15 SA [email or web address]) Out-Patient Physical Therapy Visit Information Visit Information Visit Type Treatment Note Visit Start Time 13:45 Visit Stop Time 14:31 Total Visit Minutes 46 Visit Number 17 Number of REGIONAL SALES DIRECTOR Visits 1 PT-OP-B Current Condition Start: 03/01/18 16:29 Freq: Status: Active Protocol: Document 02/26/18 11:15 RCC (Rec: 03/01/18 16:54 RCC [email or web address]) Current Condition History of Current Condition Onset Date progressively worsening over the past year Current Complaints weakness, difficulty with walking, imbalance History of Current Condition Pt is a 78 y/o male presenting to physical therapy with a c/ o progressive weakness and numbness due to neuropathy in bilateral feet which has decrease his ability to balance and ambulate outdoors. Pt's presents today with the pt, stating that he is having more difficulty walking outside. He had a fall at home in August of 2017 with increased LE pain. Pt would like to improve his walking ability to be able to take his dog to the dog park and walk for >10 minutes without high levels of fatigue. Treatment Goals Patient/Caregiver Goals be able to walk >10 min at a time, improve balance and strength Prior Functional Status Baseline Function- Gait modified indep. gait outdoors to dog park from home-10-15 min walk outside Current Functional Impairments (Reported) Functional Limitations- Mobility/Gait requires prolonged rest after ambulating <10 min, difficulty with uneven terrain. Personal Factors Other Personal Factors That May Effect memory impairment, hearing Therapy/Recovery impairment, progressing neuropathy BLE PT-OP-C Subjective Start: 03/01/18 16:29 Freq: Status: Active Protocol: Document 05/19/18 16:03 SA (Rec: 05/19/18 16:15 SA [email or web address]) OP-PT Subjective Patient Comments Patient Comments Pt reports he was really sore after last visit, decided to keep wearing his lumbar brace and does not want to do back exercises but work on balance. PT-OP-D Balance Start: 03/01/18 16:29 Freq: Status: Active Protocol: Document 04/17/18 13:48 RCC (Rec: 04/17/18 14:46 RCC [email or web address]) Balance Tests Other Other Balance Tests Performed Increased weight shift to the R with lateral balance on Shuttle Balance Board. PT-OP-E Functional Tests Start: 03/01/18 16:29 Freq: Status: Active Protocol: Document 05/13/18 13:45 BS (Rec: 05/13/18 15:02 BS [email or web address]) Functional Tests Dynamic Gait Index (DGI) Score 14/24 DGI Impairment Rating 40 to <60% Impaired (Score 10- 14) PT-OP-G Mobility & Gait Start: 03/01/18 16:29 Freq: Status: Active Protocol: Document 05/13/18 13:45 BS (Rec: 05/13/18 15:02 BS [email or web address]) OP Gait Assessment Gait Gait Assistance Required: Independent Gait Deviations General Gait Pattern Decreased Stride Length Decreased Feet Clearance Comments Gait Comments Pt arrives to PT without use of AD, although he reports that he occasionally uses bilateral walking sticks to maintain balance when walking dog outdoors on even ground. Pt exhibits decreased step length, decreased hip flexion/ toe clearance bilaterally but is stable. Slight postural instability with change in speed/direction with gait. Stair Climbing Evaluation Evaluation Level of Assist On Stairs Independent Devices Stair Climbing Assistive Devices Left Railing Right Railing Technique/Endurance Stair Climbing Direction Ascend and Descend Stair Climbing Technique Step Over Step Number of Steps Climbed 4 Comments Stair Climbing Comments Pt requires use of B handrails with reciprocal ascent/ descent. Pt reports that he avoids using stairs at home. No SHERI home. 1 flight to upstairs, but lives on 1st floor. PT-OP-H Neuro Start: 03/01/18 16:29 Freq: Status: Active Protocol: Document 02/26/18 11:15 RCC (Rec: 03/01/18 16:54 RCC [email or web address]) Sensation Evaluation Comments Summary Comments impaired bilateral lower calf to feet PT-OP-J Posture/Palpation/Skin Start: 03/01/18 16:29 Freq: Status: Active Protocol: Document 02/26/18 11:15 RCC (Rec: 03/01/18 16:54 RCC [email or web address]) Skin Assessment Other Assessments Skin Assessment Comments purplish color bilateral feet; callus lateral plantar surface 5th MT (closed) L foot PT-OP-M Strength Start: 03/01/18 16:29 Freq: Status: Active Protocol: Document 05/13/18 13:45 AMB (Rec: 05/13/18 14:03 AMB [id number]) Hip Strength Hip Manual Muscle Testing Right Flexion (L2) 5 Normal Abduction 3- Fair- External Rotation 4+ Good+ Internal Rotation 4+ Good+ Left Flexion (L2) 5 Normal Abduction 5 Normal External Rotation 4+ Good+ Internal Rotation 4+ Good+ Knee Strength Knee Manual Muscle Testing Right Flexion (S2) 4+ Good+ Extension (L3) 5 Normal Left Flexion (S2) 4+ Good+ Extension (L3) 5 Normal PT-OP-Q Treatments Start: 03/01/18 16:29 Freq: Status: Active Protocol: Document 05/19/18 16:03 SA (Rec: 05/19/18 16:15 SA [email or web address]) Cardio Equipment Recumbent Stepper (Sci-Fit) Duration (Minutes) 7 Resistance 4 Seat Position 16 Other 1.0 Gym Equipment Shuttle Recovery Unilateral Squats Resistance 50 lbs Shuttle Recovery Platform Stable Reps/Time to fatigue Bilateral Squats Resistance 87 lbs Shuttle Recovery Platform Stable Reps/Time to fatigue Shuttle Balance 1 Details A/P normal stance, semi-tandem , lateral normal stance Reps/Duration 6 min Comments Red, UE movements Therapeutic Exercises Standing Exercises resisted walk Side bilateral Resistance 2# TB Equipment Used for/backward Reps/Minutes 4 lengths at bar squats Side bilateral Resistance at bar Reps/Minutes 12x HC stretch Side bilateral Equipment Used DEMIAN Reps/Minutes 2x1 min Neuro Re-Education Treatment Balance Activities SLS Details at bar Surface leve Reps/Duration 5-10 x 3 each Other Activities heel toe gait Reps/Duration 4 lengths Comments postural cues hurdles Reps/Duration 4 lengths of bar Comments focus on knee/hip flexion PT-OP-T Assessment and Plan Start: 03/01/18 16:29 Freq: Status: Active Protocol: Document 05/19/18 16:03 SA (Rec: 05/19/18 16:15 SA [email or web address]) Physical Therapy Assessment Assessment Summary Assessment Pt declines doing pelvic/ lumbar exercise and is wearing brace again, treatment focused on balance and strengthening. Physical Therapy Plan Next Visit Focus/Plan Next Note Type Treatment Note Next Visit Plan reassess pt's symptoms review HEP B LE strengthening/educarance balance training
--- NOTE | 2018-05-21 12:10 | PT.OTN ---
Current Diagnoses Polyneuropathy, unspecified (05/21/18) Other abnormalities of gait and mobility (05/21/18) Physical Therapy Treatment Note PT-OP-A Visit Information Start: 03/01/18 16:29 Freq: Status: Active Protocol: Document 05/21/18 12:10 RCC (Rec: 05/21/18 12:53 [facility] [email or web address]) Out-Patient Physical Therapy Visit Information Visit Information Visit Type Treatment Note Visit Start Time 12:10 Visit Stop Time 12:45 Total Visit Minutes 35 Visit Number 18 Number of COAT PRESSER Visits 0 Evaluation Information Evaluation Date 02/26/18 Precautions Precautions fall risk, use gait belt with balance activities PT-OP-B Current Condition Start: 03/01/18 16:29 Freq: Status: Active Protocol: Document 02/26/18 11:15 RCC (Rec: 03/01/18 16:54 RCC [email or web address]) Current Condition History of Current Condition Onset Date progressively worsening over the past year Current Complaints weakness, difficulty with walking, imbalance History of Current Condition Pt is a 78 y/o male presenting to physical therapy with a c/ o progressive weakness and numbness due to neuropathy in bilateral feet which has decrease his ability to balance and ambulate outdoors. Pt's presents today with the pt, stating that he is having more difficulty walking outside. He had a fall at home in August of 2017 with increased LE pain. Pt would like to improve his walking ability to be able to take his dog to the dog park and walk for >10 minutes without high levels of fatigue. Treatment Goals Patient/Caregiver Goals be able to walk >10 min at a time, improve balance and strength Prior Functional Status Baseline Function- Gait modified indep. gait outdoors to dog park from home-10-15 min walk outside Current Functional Impairments (Reported) Functional Limitations- Mobility/Gait requires prolonged rest after ambulating <10 min, difficulty with uneven terrain. Personal Factors Other Personal Factors That May Effect memory impairment, hearing Therapy/Recovery impairment, progressing neuropathy BLE PT-OP-C Subjective Start: 03/01/18 16:29 Freq: Status: Active Protocol: Document 05/21/18 12:10 RCC (Rec: 05/21/18 12:53 [facility] [email or web address]) OP-PT Subjective Patient Comments Patient Comments Pt states his neck is not an issue, his ROM feels fine and not having any pain. He does admit that his balance still feels off. PT-OP-D Balance Start: 03/01/18 16:29 Freq: Status: Active Protocol: Document 04/17/18 13:48 RCC (Rec: 04/17/18 14:46 RCC [email or web address]) Balance Tests Other Other Balance Tests Performed Increased weight shift to the R with lateral balance on Shuttle Balance Board. PT-OP-E Functional Tests Start: 03/01/18 16:29 Freq: Status: Active Protocol: Document 05/13/18 13:45 BS (Rec: 05/13/18 15:02 BS [email or web address]) Functional Tests Dynamic Gait Index (DGI) Score 14/24 DGI Impairment Rating 40 to <60% Impaired (Score 10- 14) PT-OP-G Mobility & Gait Start: 03/01/18 16:29 Freq: Status: Active Protocol: Document 05/13/18 13:45 BS (Rec: 05/13/18 15:02 BS [email or web address]) OP Gait Assessment Gait Gait Assistance Required: Independent Gait Deviations General Gait Pattern Decreased Stride Length Decreased Feet Clearance Comments Gait Comments Pt arrives to PT without use of AD, although he reports that he occasionally uses bilateral walking sticks to maintain balance when walking dog outdoors on even ground. Pt exhibits decreased step length, decreased hip flexion/ toe clearance bilaterally but is stable. Slight postural instability with change in speed/direction with gait. Stair Climbing Evaluation Evaluation Level of Assist On Stairs Independent Devices Stair Climbing Assistive Devices Left Railing Right Railing Technique/Endurance Stair Climbing Direction Ascend and Descend Stair Climbing Technique Step Over Step Number of Steps Climbed 4 Comments Stair Climbing Comments Pt requires use of B handrails with reciprocal ascent/ descent. Pt reports that he avoids using stairs at home. No SHERI home. 1 flight to upstairs, but lives on [address]st floor. PT-OP-H Neuro Start: 03/01/18 16:29 Freq: Status: Active Protocol: Document 02/26/18 11:15 RCC (Rec: 03/01/18 16:54 RCC [email or web address]) Sensation Evaluation Comments Summary Comments impaired bilateral lower calf to feet PT-OP-J Posture/Palpation/Skin Start: 03/01/18 16:29 Freq: Status: Active Protocol: Document 02/26/18 11:15 RCC (Rec: 03/01/18 16:54 RCC [email or web address]) Skin Assessment Other Assessments Skin Assessment Comments purplish color bilateral feet; callus lateral plantar surface 5th MT (closed) L foot PT-OP-M Strength Start: 03/01/18 16:29 Freq: Status: Active Protocol: Document 05/13/18 13:45 AMB (Rec: 05/13/18 14:03 AMB [id number]) Hip Strength Hip Manual Muscle Testing Right Flexion (L2) 5 Normal Abduction 3- Fair- External Rotation 4+ Good+ Internal Rotation 4+ Good+ Left Flexion (L2) 5 Normal Abduction 5 Normal External Rotation 4+ Good+ Internal Rotation 4+ Good+ Knee Strength Knee Manual Muscle Testing Right Flexion (S2) 4+ Good+ Extension (L3) 5 Normal Left Flexion (S2) 4+ Good+ Extension (L3) 5 Normal PT-OP-Q Treatments Start: 03/01/18 16:29 Freq: Status: Active Protocol: Document 05/21/18 12:10 RCC (Rec: 05/21/18 12:53 RCC [email or web address]) Cardio Equipment Recumbent Stepper (Sci-Fit) Duration (Minutes) 10 Resistance 4 Seat Position 16 Other 1.83 mi Gym Equipment Shuttle Recovery Bilateral Squats Resistance 87 lbs Shuttle Recovery Platform Stable Reps/Time to fatigue Shuttle Balance 1 Details A/P normal stance, semi-tandem , lateral normal stance Reps/Duration 10 min Comments Red, UE movements Therapeutic Exercises Standing Exercises resisted walk Side bilateral Resistance 2# TB Equipment Used lateral Reps/Minutes 4 lengths at bar Neuro Re-Education Treatment Balance Activities SLS Details at bar Surface leve Reps/Duration 5-10 x 3 each Other Activities hurdles Reps/Duration 4 lengths of bar Comments focus on knee/hip flexion; 5 lb AW each LE PT-OP-T Assessment and Plan Start: 03/01/18 16:29 Freq: Status: Active Protocol: Document 05/21/18 12:10 RCC (Rec: 05/21/18 12:53 RCC [email or web address]) Physical Therapy Assessment Assessment Summary Assessment Pt requires close CGA with hurdles with ankle weights around each leg. Increased weight shift to the R with lateral standing on Shuttle Balance. Pt tolerated 10 min on Sci-fit without c/o fatigue . Physical Therapy Plan Frequency and Duration Frequency of Treatment 2x/Week Duration of Treatment 10-12 weeks Plan of Care Start Date 05/13/18 Plan of Care End Date 08/05/18 Next Visit Focus/Plan Next Note Type Treatment Note Next Visit Plan cont. to progress static and dynamic balance, gait training ; use gait belt for all standing exercises.
--- NOTE | 2018-05-26 13:59 | PT.OTN ---
Current Diagnoses Polyneuropathy, unspecified (05/26/18) Other abnormalities of gait and mobility (05/26/18) Physical Therapy Treatment Note PT-OP-A Visit Information Start: 03/01/18 16:29 Freq: Status: Active Protocol: Document 05/26/18 13:00 SAK (Rec: 05/26/18 13:45 SAK [id number]) Out-Patient Physical Therapy Visit Information Visit Information Visit Type Treatment Note Visit Start Time 13:00 Visit Stop Time 13:45 Total Visit Minutes 45 Visit Number 19 Number of INSPECTOR PACKER GLASS CONTAINER Visits 0 Precautions Precautions fall risk, use gait belt with balance activities PT-OP-B Current Condition Start: 03/01/18 16:29 Freq: Status: Active Protocol: Document 02/26/18 11:15 RCC (Rec: 03/01/18 16:54 RCC [email or web address]) Current Condition History of Current Condition Onset Date progressively worsening over the past year Current Complaints weakness, difficulty with walking, imbalance History of Current Condition Pt is a 78 y/o male presenting to physical therapy with a c/ o progressive weakness and numbness due to neuropathy in bilateral feet which has decrease his ability to balance and ambulate outdoors. Pt's presents today with the pt, stating that he is having more difficulty walking outside. He had a fall at home in August of 2017 with increased LE pain. Pt would like to improve his walking ability to be able to take his dog to the dog park and walk for >10 minutes without high levels of fatigue. Treatment Goals Patient/Caregiver Goals be able to walk >10 min at a time, improve balance and strength Prior Functional Status Baseline Function- Gait modified indep. gait outdoors to dog park from home-10-15 min walk outside Current Functional Impairments (Reported) Functional Limitations- Mobility/Gait requires prolonged rest after ambulating <10 min, difficulty with uneven terrain. Personal Factors Other Personal Factors That May Effect memory impairment, hearing Therapy/Recovery impairment, progressing neuropathy BLE PT-OP-C Subjective Start: 03/01/18 16:29 Freq: Status: Active Protocol: Document 05/26/18 13:00 SAK (Rec: 05/26/18 13:45 SAK [id number]) OP-PT Subjective Patient Comments Patient Comments No new c/o. Trying to be careful with walking outside PT-OP-D Balance Start: 03/01/18 16:29 Freq: Status: Active Protocol: Document 04/17/18 13:48 RCC (Rec: 04/17/18 14:46 RCC [email or web address]) Balance Tests Other Other Balance Tests Performed Increased weight shift to the R with lateral balance on Shuttle Balance Board. PT-OP-E Functional Tests Start: 03/01/18 16:29 Freq: Status: Active Protocol: Document 05/13/18 13:45 BS (Rec: 05/13/18 15:02 BS [email or web address]) Functional Tests Dynamic Gait Index (DGI) Score 14/24 DGI Impairment Rating 40 to <60% Impaired (Score 10- 14) PT-OP-G Mobility & Gait Start: 03/01/18 16:29 Freq: Status: Active Protocol: Document 05/13/18 13:45 BS (Rec: 05/13/18 15:02 BS [email or web address]) OP Gait Assessment Gait Gait Assistance Required: Independent Gait Deviations General Gait Pattern Decreased Stride Length Decreased Feet Clearance Comments Gait Comments Pt arrives to PT without use of AD, although he reports that he occasionally uses bilateral walking sticks to maintain balance when walking dog outdoors on even ground. Pt exhibits decreased step length, decreased hip flexion/ toe clearance bilaterally but is stable. Slight postural instability with change in speed/direction with gait. Stair Climbing Evaluation Evaluation Level of Assist On Stairs Independent Devices Stair Climbing Assistive Devices Left Railing Right Railing Technique/Endurance Stair Climbing Direction Ascend and Descend Stair Climbing Technique Step Over Step Number of Steps Climbed 4 Comments Stair Climbing Comments Pt requires use of B handrails with reciprocal ascent/ descent. Pt reports that he avoids using stairs at home. No SHERI home. 1 flight to upstairs, but lives on [address]st floor. PT-OP-H Neuro Start: 03/01/18 16:29 Freq: Status: Active Protocol: Document 02/26/18 11:15 RCC (Rec: 03/01/18 16:54 RCC [email or web address]) Sensation Evaluation Comments Summary Comments impaired bilateral lower calf to feet PT-OP-J Posture/Palpation/Skin Start: 03/01/18 16:29 Freq: Status: Active Protocol: Document 02/26/18 11:15 RCC (Rec: 03/01/18 16:54 RCC [email or web address]) Skin Assessment Other Assessments Skin Assessment Comments purplish color bilateral feet; callus lateral plantar surface 5th MT (closed) L foot PT-OP-M Strength Start: 03/01/18 16:29 Freq: Status: Active Protocol: Document 05/13/18 13:45 AMB (Rec: 05/13/18 14:03 AMB [id number]) Hip Strength Hip Manual Muscle Testing Right Flexion (L2) 5 Normal Abduction 3- Fair- External Rotation 4+ Good+ Internal Rotation 4+ Good+ Left Flexion (L2) 5 Normal Abduction 5 Normal External Rotation 4+ Good+ Internal Rotation 4+ Good+ Knee Strength Knee Manual Muscle Testing Right Flexion (S2) 4+ Good+ Extension (L3) 5 Normal Left Flexion (S2) 4+ Good+ Extension (L3) 5 Normal PT-OP-Q Treatments Start: 03/01/18 16:29 Freq: Status: Active Protocol: Document 05/26/18 13:00 SAK (Rec: 05/26/18 13:45 SAK [id number]) Cardio Equipment Recumbent Stepper (Sci-Fit) Duration (Minutes) 10 Resistance 4 Seat Position 16 Gym Equipment Shuttle Recovery Unilateral Squats Resistance 50 lbs right, 37 left Shuttle Recovery Platform Stable Reps/Time to fatigue Bilateral Squats Resistance 87 lbs Shuttle Recovery Platform Stable Reps/Time to fatigue Shuttle Balance 1 Details A/P normal stance, semi-tandem , lateral normal stance Reps/Duration 10 min Comments Red, UE movements Therapeutic Exercises Standing Exercises resisted walk Side bilateral Resistance 2# TB Equipment Used lateral Reps/Minutes 4 lengths at bar HS stretch Side bilateral Equipment Used stairs Reps/Minutes 2x30 sec each HC stretch Side bilateral Reps/Minutes 30x2 Neuro Re-Education Treatment Balance Activities SLS Details at bar Surface leve Reps/Duration 5-10 x 3 each Tandem standing Surface firm Equipment // bars Reps/Duration 3x30 sec each situation Other Activities hurdles Reps/Duration 4 lengths of bar Comments focus on knee/hip flexion; 5 lb AW each LE PT-OP-T Assessment and Plan Start: 03/01/18 16:29 Freq: Status: Active Protocol: Document 05/26/18 13:00 SAK (Rec: 05/26/18 13:45 SAK [id number]) Physical Therapy Assessment Goals Home exercise- walking program Impairment limited ability to ambulate outdoors. Half-Way Goal (LTG) Pt will participate in daily ambulation outdoors on uneven terrain for at least 15 min to perform recreational activities such as taking/ walking his do to/from the dog park. NOT MET, PROGRESSING TOWARD. LTG Duration 12 weeks 6 Minute Walk Test Impairment 823 ft Short Term Goal (STG) 950 ft or greater with 6 Minute Walk Test to demonstrate improvements with gait tolerance. STG Duration 6 weeks Half-Way Goal (LTG) 1100 ft or greater with 6 Minute Walk Test to demonstrate improvements with gait tolerance. NOT ASSESSED TODAY PER PT REQUEST due to fatigue. LE weakness Impairment LE weakness to manual muscle testing (MMT) Half-Way Goal (LTG) LE MMT grossly 4+/5 or greater to improve tolerance to ambulating on uneven terrain. MET 05/13/18. LTG Duration 12 weeks DGI Impairment Dynamic Gait Index 13/24 Short Term Goal (STG) Score of at least 16/24 with the DGI to demonstrate improvements with functional gait and balance STG Duration 6 weeks Core Drier Goal (LTG) Score of at least 19/24 with the DGI to demonstrate improvements with functional gait and balance, and decrease fall risk. NOT MET. DGI score 05/13/18 was 14/24. LTG Duration 12 weeks Assessment Summary Assessment No recent falls, patient reports compliance to HEP, but minimal activity at home besides making sure the bird feeders are full. Needs CGA to min A with all balance tasks in PT. Physical Therapy Plan Frequency and Duration Frequency of Treatment 2x/Week Duration of Treatment 10-12 weeks Plan of Care Start Date 05/13/18 Plan of Care End Date 08/05/18 Next Visit Focus/Plan Next Note Type Progress Note Next Visit Plan cont. to progress static and dynamic balance, gait training ; use gait belt for all standing exercises.
--- NOTE | 2018-06-02 15:10 | PT.OTN ---
Current Diagnoses Polyneuropathy, unspecified (06/02/18) Other abnormalities of gait and mobility (06/02/18) Physical Therapy Treatment Note PT-OP-A Visit Information Start: 03/01/18 16:29 Freq: Status: Active Protocol: Document 06/02/18 14:59 [facility] (Rec: 06/02/18 15:07 [facility] [email or web address]) Out-Patient Physical Therapy Visit Information Visit Information Visit Type Progress Note Visit Start Time 13:00 Visit Stop Time 13:45 Total Visit Minutes 45 Visit Number 20 Number of WIRE DRAWING SETTER Visits 0 Evaluation Information Evaluation Date 02/26/18 PT-OP-B Current Condition Start: 03/01/18 16:29 Freq: Status: Active Protocol: Document 02/26/18 11:15 RCC (Rec: 03/01/18 16:54 RCC [email or web address]) Current Condition History of Current Condition Onset Date progressively worsening over the past year Current Complaints weakness, difficulty with walking, imbalance History of Current Condition Pt is a 78 y/o male presenting to physical therapy with a c/ o progressive weakness and numbness due to neuropathy in bilateral feet which has decrease his ability to balance and ambulate outdoors. Pt's presents today with the pt, stating that he is having more difficulty walking outside. He had a fall at home in August of 2017 with increased LE pain. Pt would like to improve his walking ability to be able to take his dog to the dog park and walk for >10 minutes without high levels of fatigue. Treatment Goals Patient/Caregiver Goals be able to walk >10 min at a time, improve balance and strength Prior Functional Status Baseline Function- Gait modified indep. gait outdoors to dog park from home-10-15 min walk outside Current Functional Impairments (Reported) Functional Limitations- Mobility/Gait requires prolonged rest after ambulating <10 min, difficulty with uneven terrain. Personal Factors Other Personal Factors That May Effect memory impairment, hearing Therapy/Recovery impairment, progressing neuropathy BLE PT-OP-C Subjective Start: 03/01/18 16:29 Freq: Status: Active Protocol: Document 06/02/18 14:59 [facility] (Rec: 06/02/18 15:07 [facility] [email or web address]) OP-PT Subjective Patient Comments Patient Comments reports he changed his insoles and this has helped decrease his foot pain on the left PT-OP-D Balance Start: 03/01/18 16:29 Freq: Status: Active Protocol: Document 04/17/18 13:48 RCC (Rec: 04/17/18 14:46 RCC [email or web address]) Balance Tests Other Other Balance Tests Performed Increased weight shift to the R with lateral balance on Shuttle Balance Board. PT-OP-E Functional Tests Start: 03/01/18 16:29 Freq: Status: Active Protocol: Document 06/02/18 15:07 [facility] (Rec: 06/02/18 15:10 [facility] [email or web address]) Functional Tests Dynamic Gait Index (DGI) Score 14/24 DGI Impairment Rating 40 to <60% Impaired (Score 10- 14) PT-OP-G Mobility & Gait Start: 03/01/18 16:29 Freq: Status: Active Protocol: Document 06/02/18 15:07 [facility] (Rec: 06/02/18 15:10 [facility] [email or web address]) OP Gait Assessment Gait Gait Assistance Required: Independent Gait Deviations General Gait Pattern Decreased Stride Length Decreased Feet Clearance Factors Limiting Gait Function Factors Limiting Gait Function Decreased Activity Tolerance Decreased Sensation Decreased Strength Poor Balance Comments Gait Comments Pt arrives to PT without use of AD, although he reports that he occasionally uses bilateral walking sticks to maintain balance when walking dog outdoors on even ground. Pt exhibits decreased step length, decreased hip flexion/ toe clearance bilaterally but is stable. Slight postural instability with change in speed/direction with gait. Stair Climbing Evaluation Evaluation Level of Assist On Stairs Independent Devices Stair Climbing Assistive Devices Left Railing Right Railing Technique/Endurance Stair Climbing Direction Ascend and Descend Stair Climbing Technique Step Over Step Number of Steps Climbed 4 Comments Stair Climbing Comments Pt requires use of B handrails going down but able to use single handrail on the right side going up PT-OP-H Neuro Start: 03/01/18 16:29 Freq: Status: Active Protocol: Document 02/26/18 11:15 RCC (Rec: 03/01/18 16:54 RCC [email or web address]) Sensation Evaluation Comments Summary Comments impaired bilateral lower calf to feet PT-OP-J Posture/Palpation/Skin Start: 03/01/18 16:29 Freq: Status: Active Protocol: Document 02/26/18 11:15 RCC (Rec: 03/01/18 16:54 RCC [email or web address]) Skin Assessment Other Assessments Skin Assessment Comments purplish color bilateral feet; callus lateral plantar surface 5th MT (closed) L foot PT-OP-M Strength Start: 03/01/18 16:29 Freq: Status: Active Protocol: Document 06/02/18 15:07 AMH (Rec: 06/02/18 15:10 [facility] [email or web address]) Hip Strength Hip Manual Muscle Testing Right Flexion (L2) 5 Normal Abduction 3 Fair External Rotation 4+ Good+ Internal Rotation 4+ Good+ Left Flexion (L2) 5 Normal Abduction 5 Normal External Rotation 4+ Good+ Internal Rotation 4+ Good+ Knee Strength Knee Manual Muscle Testing Right Flexion (S2) 4+ Good+ Extension (L3) 5 Normal Left Flexion (S2) 4+ Good+ Extension (L3) 5 Normal Ankle/Foot Strength Ankle and Foot Manual Muscle Testing Right Dorsiflexion (L4) 4+ Good+ Inversion 4+ Good+ Eversion (S1) 4 Good Left Dorsiflexion (L4) 4 Good Inversion 4 Good Eversion (S1) 4 Good PT-OP-Q Treatments Start: 03/01/18 16:29 Freq: Status: Active Protocol: Document 06/02/18 14:59 [facility] (Rec: 06/02/18 15:07 [facility] [email or web address]) Cardio Equipment Recumbent Elliptical (Biodex) Duration (Minutes) 5 Resistance 6 Gym Equipment Shuttle Recovery Unilateral Squats Resistance 50 lbs right, 37 left Shuttle Recovery Platform Stable Reps/Time to fatigue Bilateral Squats Resistance 87 lbs Shuttle Recovery Platform Stable Reps/Time to fatigue Shuttle Balance 1 Details A/P normal stance, semi-tandem , lateral normal stance Reps/Duration 10 min Comments Red, UE movements Therapeutic Exercises Standing Exercises 1 Standing Exercise Name standing hip abduction Equipment Used // bar Reps/Minutes 2 x 10 reps resisted walk Side bilateral Resistance 2# TB Equipment Used lateral Reps/Minutes 4 lengths at bar HS stretch Side bilateral Equipment Used stairs Reps/Minutes 2x30 sec each HC stretch Side bilateral Reps/Minutes 30x2 Neuro Re-Education Treatment Balance Activities 1 Details standing step ups Surface // bars firm surface Reps/Duration 2 x 10 each side Comments worked on slow hip flexion to the step to work single leg balance SLS Details at bar Surface leve Reps/Duration 5-10 x 3 each Tandem standing Surface firm Equipment // bars Reps/Duration 3x30 sec each situation PT-OP-T Assessment and Plan Start: 03/01/18 16:29 Freq: Status: Active Protocol: Document 06/02/18 14:59 AMH (Rec: 06/02/18 15:07 [facility] [email or web address]) Physical Therapy Assessment Assessment Summary Assessment Needs continued strengthening for the lateral hips as single leg stance balance activities are a challange. No recent falls but not using walking sticks so I did talk to about bringing those into the clinic especially after PT for when he is fatigued to walk to the car with assistance Physical Therapy Plan Frequency and Duration Frequency of Treatment 2x/Week Duration of Treatment 10-12 weeks Plan of Care Start Date 05/13/18 Plan of Care End Date 08/05/18 Next Visit Focus/Plan Next Note Type Treatment Note Next Visit Plan cont. to progress static and dynamic balance, gait training ; use gait belt for all standing exercises.
--- NOTE | 2018-06-05 11:26 | PT.OTN ---
Current Diagnoses Polyneuropathy, unspecified (06/04/18) Other abnormalities of gait and mobility (06/04/18) Physical Therapy Treatment Note PT-OP-A Visit Information Start: 03/01/18 16:29 Freq: Status: Active Protocol: Document 06/04/18 12:59 BS (Rec: 06/04/18 13:09 BS [id number]) Out-Patient Physical Therapy Visit Information Visit Information Visit Type Treatment Note Visit Start Time 13:00 Visit Stop Time 13:45 Total Visit Minutes 45 Visit Number 21 Number of QUALITY SYSTEMS MANAGER Visits 0 Precautions Precautions fall risk, use gait belt with balance activities PT-OP-B Current Condition Start: 03/01/18 16:29 Freq: Status: Active Protocol: Document 02/26/18 11:15 RCC (Rec: 03/01/18 16:54 RCC [email or web address]) Current Condition History of Current Condition Onset Date progressively worsening over the past year Current Complaints weakness, difficulty with walking, imbalance History of Current Condition Pt is a 78 y/o male presenting to physical therapy with a c/ o progressive weakness and numbness due to neuropathy in bilateral feet which has decrease his ability to balance and ambulate outdoors. Pt's presents today with the pt, stating that he is having more difficulty walking outside. He had a fall at home in August of 2017 with increased LE pain. Pt would like to improve his walking ability to be able to take his dog to the dog park and walk for >10 minutes without high levels of fatigue. Treatment Goals Patient/Caregiver Goals be able to walk >10 min at a time, improve balance and strength Prior Functional Status Baseline Function- Gait modified indep. gait outdoors to dog park from home-10-15 min walk outside Current Functional Impairments (Reported) Functional Limitations- Mobility/Gait requires prolonged rest after ambulating <10 min, difficulty with uneven terrain. Personal Factors Other Personal Factors That May Effect memory impairment, hearing Therapy/Recovery impairment, progressing neuropathy BLE PT-OP-C Subjective Start: 03/01/18 16:29 Freq: Status: Active Protocol: Document 06/04/18 12:59 BS (Rec: 06/04/18 13:09 BS [id number]) OP-PT Subjective Patient Comments Patient Comments Pt states he still feels weakness in his legs and may consider walking with sticks when out and walking. PT-OP-D Balance Start: 03/01/18 16:29 Freq: Status: Active Protocol: Document 04/17/18 13:48 RCC (Rec: 04/17/18 14:46 RCC [email or web address]) Balance Tests Other Other Balance Tests Performed Increased weight shift to the R with lateral balance on Shuttle Balance Board. PT-OP-E Functional Tests Start: 03/01/18 16:29 Freq: Status: Active Protocol: Document 06/02/18 15:07 [facility] (Rec: 06/02/18 15:10 [facility] [email or web address]) Functional Tests Dynamic Gait Index (DGI) Score 14/24 DGI Impairment Rating 40 to <60% Impaired (Score 10- 14) PT-OP-G Mobility & Gait Start: 03/01/18 16:29 Freq: Status: Active Protocol: Document 06/02/18 15:07 [facility] (Rec: 06/02/18 15:10 [facility] [email or web address]) OP Gait Assessment Gait Gait Assistance Required: Independent Gait Deviations General Gait Pattern Decreased Stride Length Decreased Feet Clearance Factors Limiting Gait Function Factors Limiting Gait Function Decreased Activity Tolerance Decreased Sensation Decreased Strength Poor Balance Comments Gait Comments Pt arrives to PT without use of AD, although he reports that he occasionally uses bilateral walking sticks to maintain balance when walking dog outdoors on even ground. Pt exhibits decreased step length, decreased hip flexion/ toe clearance bilaterally but is stable. Slight postural instability with change in speed/direction with gait. Stair Climbing Evaluation Evaluation Level of Assist On Stairs Independent Devices Stair Climbing Assistive Devices Left Railing Right Railing Technique/Endurance Stair Climbing Direction Ascend and Descend Stair Climbing Technique Step Over Step Number of Steps Climbed 4 Comments Stair Climbing Comments Pt requires use of B handrails going down but able to use single handrail on the right side going up PT-OP-H Neuro Start: 03/01/18 16:29 Freq: Status: Active Protocol: Document 02/26/18 11:15 RCC (Rec: 03/01/18 16:54 RCC [email or web address]) Sensation Evaluation Comments Summary Comments impaired bilateral lower calf to feet PT-OP-J Posture/Palpation/Skin Start: 03/01/18 16:29 Freq: Status: Active Protocol: Document 02/26/18 11:15 RCC (Rec: 03/01/18 16:54 RCC [email or web address]) Skin Assessment Other Assessments Skin Assessment Comments purplish color bilateral feet; callus lateral plantar surface 5th MT (closed) L foot PT-OP-M Strength Start: 03/01/18 16:29 Freq: Status: Active Protocol: Document 06/02/18 15:07 [facility] (Rec: 06/02/18 15:10 [facility] [email or web address]) Hip Strength Hip Manual Muscle Testing Right Flexion (L2) 5 Normal Abduction 3 Fair External Rotation 4+ Good+ Internal Rotation 4+ Good+ Left Flexion (L2) 5 Normal Abduction 5 Normal External Rotation 4+ Good+ Internal Rotation 4+ Good+ Knee Strength Knee Manual Muscle Testing Right Flexion (S2) 4+ Good+ Extension (L3) 5 Normal Left Flexion (S2) 4+ Good+ Extension (L3) 5 Normal Ankle/Foot Strength Ankle and Foot Manual Muscle Testing Right Dorsiflexion (L4) 4+ Good+ Inversion 4+ Good+ Eversion (S1) 4 Good Left Dorsiflexion (L4) 4 Good Inversion 4 Good Eversion (S1) 4 Good PT-OP-Q Treatments Start: 03/01/18 16:29 Freq: Status: Active Protocol: Document 06/04/18 12:59 BS (Rec: 06/04/18 16:01 BS [email or web address]) Cardio Equipment Recumbent Elliptical (Biodex) Duration (Minutes) 5 Resistance 12 Other SOB after 3 min, reduced resistance to 10 Gym Equipment Shuttle Recovery Unilateral Squats Resistance 50 lbs Shuttle Recovery Platform Stable Reps/Time 2x10 each Bilateral Squats Resistance 100 lbs Shuttle Recovery Platform Stable Reps/Time 2x10 Shuttle Balance 1 Details A/P normal stance, semi-tandem , lateral normal stance Reps/Duration 10 min total Comments Red, UE alternating flex/ext. Therapeutic Exercises Standing Exercises 1 Standing Exercise Name standing hip abduction Resistance 5# Equipment Used // bar Reps/Minutes x10 each Neuro Re-Education Treatment Balance Activities 3 Details Backwards Walking Equipment // bars Comments x2 laps in bars 2 Details Sidestepping Equipment // bars Comments x2 laps in bars. No LOB. Tandem standing Surface firm Equipment // bars Reps/Duration 3x30 sec each Comments better postural stability with LLE in front. Occasional UE support on bars to steady. PT-OP-T Assessment and Plan Start: 03/01/18 16:29 Freq: Status: Active Protocol: Document 06/04/18 12:59 BS (Rec: 06/04/18 16:01 BS [email or web address]) Physical Therapy Assessment Assessment Summary Assessment Pt tolerated B LE strenthening well but with c/o of some L lateral knee pain at ITB insertion. No LOB today during dynamic balance challenging activities. Physical Therapy Plan Frequency and Duration Frequency of Treatment 2x/Week Duration of Treatment 10-12 weeks Plan of Care Start Date 05/13/18 Plan of Care End Date 08/05/18 Next Visit Focus/Plan Next Note Type Treatment Note Next Visit Plan Progress strengthening with increased weight and fewer reps, monitor L lateral knee pain. Gait belt for all standing activities.
--- NOTE | 2018-06-11 09:49 | PT.OTN ---
Current Diagnoses Polyneuropathy, unspecified (06/11/18) Other abnormalities of gait and mobility (06/11/18) Physical Therapy Treatment Note PT-OP-A Visit Information Start: 03/01/18 16:29 Freq: Status: Active Protocol: Document 06/11/18 08:14 [facility] (Rec: 06/11/18 09:00 [facility] [id number]) Out-Patient Physical Therapy Visit Information Visit Information Visit Type Treatment Note Visit Start Time 08:10 Visit Stop Time 08:55 Total Visit Minutes 45 Visit Number 22 Number of BRANCH OPERATION EVALUATION MANAGER Visits 0 PT-OP-B Current Condition Start: 03/01/18 16:29 Freq: Status: Active Protocol: Document 02/26/18 11:15 RCC (Rec: 03/01/18 16:54 RCC [email or web address]) Current Condition History of Current Condition Onset Date progressively worsening over the past year Current Complaints weakness, difficulty with walking, imbalance History of Current Condition Pt is a 78 y/o male presenting to physical therapy with a c/ o progressive weakness and numbness due to neuropathy in bilateral feet which has decrease his ability to balance and ambulate outdoors. Pt's presents today with the pt, stating that he is having more difficulty walking outside. He had a fall at home in August of 2017 with increased LE pain. Pt would like to improve his walking ability to be able to take his dog to the dog park and walk for >10 minutes without high levels of fatigue. Treatment Goals Patient/Caregiver Goals be able to walk >10 min at a time, improve balance and strength Prior Functional Status Baseline Function- Gait modified indep. gait outdoors to dog park from home-10-15 min walk outside Current Functional Impairments (Reported) Functional Limitations- Mobility/Gait requires prolonged rest after ambulating <10 min, difficulty with uneven terrain. Personal Factors Other Personal Factors That May Effect memory impairment, hearing Therapy/Recovery impairment, progressing neuropathy BLE PT-OP-C Subjective Start: 03/01/18 16:29 Freq: Status: Active Protocol: Document 06/11/18 08:14 [facility] (Rec: 06/11/18 09:00 [facility] [id number]) OP-PT Subjective Patient Comments Patient Comments Pt reports he fell Friday trying to pick something up and slipped. He went to the doctor and the MD said he didn 't break anything. His L knee hurt after but he said its feeling better. PT-OP-D Balance Start: 03/01/18 16:29 Freq: Status: Active Protocol: Document 04/17/18 13:48 RCC (Rec: 04/17/18 14:46 RCC [email or web address]) Balance Tests Other Other Balance Tests Performed Increased weight shift to the R with lateral balance on Shuttle Balance Board. PT-OP-E Functional Tests Start: 03/01/18 16:29 Freq: Status: Active Protocol: Document 06/02/18 15:07 [facility] (Rec: 06/02/18 15:10 [facility] [email or web address]) Functional Tests Dynamic Gait Index (DGI) Score 14/24 DGI Impairment Rating 40 to <60% Impaired (Score 10- 14) PT-OP-G Mobility & Gait Start: 03/01/18 16:29 Freq: Status: Active Protocol: Document 06/02/18 15:07 [facility] (Rec: 06/02/18 15:10 [facility] [email or web address]) OP Gait Assessment Gait Gait Assistance Required: Independent Gait Deviations General Gait Pattern Decreased Stride Length Decreased Feet Clearance Factors Limiting Gait Function Factors Limiting Gait Function Decreased Activity Tolerance Decreased Sensation Decreased Strength Poor Balance Comments Gait Comments Pt arrives to PT without use of AD, although he reports that he occasionally uses bilateral walking sticks to maintain balance when walking dog outdoors on even ground. Pt exhibits decreased step length, decreased hip flexion/ toe clearance bilaterally but is stable. Slight postural instability with change in speed/direction with gait. Stair Climbing Evaluation Evaluation Level of Assist On Stairs Independent Devices Stair Climbing Assistive Devices Left Railing Right Railing Technique/Endurance Stair Climbing Direction Ascend and Descend Stair Climbing Technique Step Over Step Number of Steps Climbed 4 Comments Stair Climbing Comments Pt requires use of B handrails going down but able to use single handrail on the right side going up PT-OP-H Neuro Start: 03/01/18 16:29 Freq: Status: Active Protocol: Document 02/26/18 11:15 RCC (Rec: 03/01/18 16:54 RCC [email or web address]) Sensation Evaluation Comments Summary Comments impaired bilateral lower calf to feet PT-OP-J Posture/Palpation/Skin Start: 03/01/18 16:29 Freq: Status: Active Protocol: Document 02/26/18 11:15 RCC (Rec: 03/01/18 16:54 RCC [email or web address]) Skin Assessment Other Assessments Skin Assessment Comments purplish color bilateral feet; callus lateral plantar surface 5th MT (closed) L foot PT-OP-M Strength Start: 03/01/18 16:29 Freq: Status: Active Protocol: Document 06/02/18 15:07 [facility] (Rec: 06/02/18 15:10 [facility] [email or web address]) Hip Strength Hip Manual Muscle Testing Right Flexion (L2) 5 Normal Abduction 3 Fair External Rotation 4+ Good+ Internal Rotation 4+ Good+ Left Flexion (L2) 5 Normal Abduction 5 Normal External Rotation 4+ Good+ Internal Rotation 4+ Good+ Knee Strength Knee Manual Muscle Testing Right Flexion (S2) 4+ Good+ Extension (L3) 5 Normal Left Flexion (S2) 4+ Good+ Extension (L3) 5 Normal Ankle/Foot Strength Ankle and Foot Manual Muscle Testing Right Dorsiflexion (L4) 4+ Good+ Inversion 4+ Good+ Eversion (S1) 4 Good Left Dorsiflexion (L4) 4 Good Inversion 4 Good Eversion (S1) 4 Good PT-OP-Q Treatments Start: 03/01/18 16:29 Freq: Status: Active Protocol: Document 06/11/18 08:14 [facility] (Rec: 06/11/18 09:00 [facility] [id number]) Cardio Equipment Recumbent Stepper (Sci-Fit) Duration (Minutes) 5 Resistance 10-12 Seat Position 16 Gym Equipment Shuttle Recovery Unilateral Squats Resistance 62 lbs R; L 50lb Shuttle Recovery Platform Stable Reps/Time 2x15 each Bilateral Squats Resistance 100 lbs Shuttle Recovery Platform Stable Reps/Time 2x10 Shuttle Balance 1 Details A/P normal stance, semi-tandem , lateral normal stance, NBOS Reps/Duration 10 min total Comments Red, UE alternating flex/ext. Therapeutic Exercises Standing Exercises 1 Standing Exercise Name standing hip abduction Resistance 5# Equipment Used // bar Reps/Minutes x10 each Neuro Re-Education Treatment Balance Activities 3 Details forward/Backwards Walking Equipment yellow tband Reps/Duration 2x20ft 2 Details Sidestepping Equipment yellow tband Reps/Duration 2x20ft 1 Details standing step ups Surface by stairs; 5 in step Reps/Duration 2 x 10 each side Comments worked on slow hip flexion to the step to work single leg balance; rail prn Tandem standing Surface firm Equipment // bars Reps/Duration 3x30 sec each Comments better postural stability with LLE in front. Occasional UE support on bars to steady. PT-OP-T Assessment and Plan Start: 03/01/18 16:29 Freq: Status: Active Protocol: Document 06/11/18 08:14 [facility] (Rec: 06/11/18 09:00 [facility] [id number]) Physical Therapy Assessment Goals Home exercise- walking program Impairment limited ability to ambulate outdoors. Contact Officer Goal (LTG) Pt will participate in daily ambulation outdoors on uneven terrain for at least 15 min to perform recreational activities such as taking/ walking his do to/from the dog park. NOT MET, PROGRESSING TOWARD. LTG Duration 12 weeks 6 Minute Walk Test Impairment 823 ft Short Term Goal (STG) 950 ft or greater with 6 Minute Walk Test to demonstrate improvements with gait tolerance. STG Duration 6 weeks Penitentiary Goal (LTG) 1100 ft or greater with 6 Minute Walk Test to demonstrate improvements with gait tolerance. NOT ASSESSED TODAY PER PT REQUEST due to fatigue. LE weakness Impairment LE weakness to manual muscle testing (MMT) Contact Officer Goal (LTG) LE MMT grossly 4+/5 or greater to improve tolerance to ambulating on uneven terrain. MET 05/13/18. LTG Duration 12 weeks DGI Impairment Dynamic Gait Index 13/24 Short Term Goal (STG) Score of at least 16/24 with the DGI to demonstrate improvements with functional gait and balance STG Duration 6 weeks Penitentiary Goal (LTG) Score of at least 19/24 with the DGI to demonstrate improvements with functional gait and balance, and decrease fall risk. NOT MET. DGI score 05/13/18 was 14/24. LTG Duration 12 weeks Assessment Summary Assessment Pt was challenged by inc resistance with side stepping and with NBOS on balance board . He cont to fatigue with therapy session. Physical Therapy Plan Frequency and Duration Frequency of Treatment 2x/Week Duration of Treatment 10-12 weeks Plan of Care Start Date 05/13/18 Plan of Care End Date 08/05/18 Next Visit Focus/Plan Next Note Type Treatment Note Next Visit Plan cont to monitor for L knee pain, use gait belt for all standing, progress balance & dynamic activity.
--- NOTE | 2018-06-16 09:48 | PT.OTN ---
Current Diagnoses Polyneuropathy, unspecified (06/16/18) Other abnormalities of gait and mobility (06/16/18) Physical Therapy Treatment Note PT-OP-A Visit Information Start: 03/01/18 16:29 Freq: Status: Active Protocol: Document 06/16/18 09:41 SA (Rec: 06/16/18 09:48 SA [email or web address]) Out-Patient Physical Therapy Visit Information Visit Information Visit Type Treatment Note Visit Start Time 08:15 Visit Stop Time 09:00 Visit Number 23 Number of NATIONAL SECRETARY Visits 1 PT-OP-B Current Condition Start: 03/01/18 16:29 Freq: Status: Active Protocol: Document 02/26/18 11:15 RCC (Rec: 03/01/18 16:54 RCC [email or web address]) Current Condition History of Current Condition Onset Date progressively worsening over the past year Current Complaints weakness, difficulty with walking, imbalance History of Current Condition Pt is a 78 y/o male presenting to physical therapy with a c/ o progressive weakness and numbness due to neuropathy in bilateral feet which has decrease his ability to balance and ambulate outdoors. Pt's presents today with the pt, stating that he is having more difficulty walking outside. He had a fall at home in August of 2017 with increased LE pain. Pt would like to improve his walking ability to be able to take his dog to the dog park and walk for >10 minutes without high levels of fatigue. Treatment Goals Patient/Caregiver Goals be able to walk >10 min at a time, improve balance and strength Prior Functional Status Baseline Function- Gait modified indep. gait outdoors to dog park from home-10-15 min walk outside Current Functional Impairments (Reported) Functional Limitations- Mobility/Gait requires prolonged rest after ambulating <10 min, difficulty with uneven terrain. Personal Factors Other Personal Factors That May Effect memory impairment, hearing Therapy/Recovery impairment, progressing neuropathy BLE PT-OP-C Subjective Start: 03/01/18 16:29 Freq: Status: Active Protocol: Document 06/16/18 09:41 SA (Rec: 06/16/18 09:48 SA [email or web address]) OP-PT Subjective Patient Comments Patient Comments L knee is feeling pretty much back to normal, no falls since the last one He reported. PT-OP-D Balance Start: 03/01/18 16:29 Freq: Status: Active Protocol: Document 04/17/18 13:48 RCC (Rec: 04/17/18 14:46 RCC [email or web address]) Balance Tests Other Other Balance Tests Performed Increased weight shift to the R with lateral balance on Shuttle Balance Board. PT-OP-E Functional Tests Start: 03/01/18 16:29 Freq: Status: Active Protocol: Document 06/02/18 15:07 [facility] (Rec: 06/02/18 15:10 [facility] [email or web address]) Functional Tests Dynamic Gait Index (DGI) Score 14/24 DGI Impairment Rating 40 to <60% Impaired (Score 10- 14) PT-OP-G Mobility & Gait Start: 03/01/18 16:29 Freq: Status: Active Protocol: Document 06/02/18 15:07 [facility] (Rec: 06/02/18 15:10 [facility] [email or web address]) OP Gait Assessment Gait Gait Assistance Required: Independent Gait Deviations General Gait Pattern Decreased Stride Length Decreased Feet Clearance Factors Limiting Gait Function Factors Limiting Gait Function Decreased Activity Tolerance Decreased Sensation Decreased Strength Poor Balance Comments Gait Comments Pt arrives to PT without use of AD, although he reports that he occasionally uses bilateral walking sticks to maintain balance when walking dog outdoors on even ground. Pt exhibits decreased step length, decreased hip flexion/ toe clearance bilaterally but is stable. Slight postural instability with change in speed/direction with gait. Stair Climbing Evaluation Evaluation Level of Assist On Stairs Independent Devices Stair Climbing Assistive Devices Left Railing Right Railing Technique/Endurance Stair Climbing Direction Ascend and Descend Stair Climbing Technique Step Over Step Number of Steps Climbed 4 Comments Stair Climbing Comments Pt requires use of B handrails going down but able to use single handrail on the right side going up PT-OP-H Neuro Start: 03/01/18 16:29 Freq: Status: Active Protocol: Document 02/26/18 11:15 RCC (Rec: 03/01/18 16:54 RCC [email or web address]) Sensation Evaluation Comments Summary Comments impaired bilateral lower calf to feet PT-OP-J Posture/Palpation/Skin Start: 03/01/18 16:29 Freq: Status: Active Protocol: Document 02/26/18 11:15 RCC (Rec: 03/01/18 16:54 RCC [email or web address]) Skin Assessment Other Assessments Skin Assessment Comments purplish color bilateral feet; callus lateral plantar surface 5th MT (closed) L foot PT-OP-M Strength Start: 03/01/18 16:29 Freq: Status: Active Protocol: Document 06/02/18 15:07 [facility] (Rec: 06/02/18 15:10 [facility] [email or web address]) Hip Strength Hip Manual Muscle Testing Right Flexion (L2) 5 Normal Abduction 3 Fair External Rotation 4+ Good+ Internal Rotation 4+ Good+ Left Flexion (L2) 5 Normal Abduction 5 Normal External Rotation 4+ Good+ Internal Rotation 4+ Good+ Knee Strength Knee Manual Muscle Testing Right Flexion (S2) 4+ Good+ Extension (L3) 5 Normal Left Flexion (S2) 4+ Good+ Extension (L3) 5 Normal Ankle/Foot Strength Ankle and Foot Manual Muscle Testing Right Dorsiflexion (L4) 4+ Good+ Inversion 4+ Good+ Eversion (S1) 4 Good Left Dorsiflexion (L4) 4 Good Inversion 4 Good Eversion (S1) 4 Good PT-OP-Q Treatments Start: 03/01/18 16:29 Freq: Status: Active Protocol: Document 06/16/18 09:41 SA (Rec: 06/16/18 09:48 SA [email or web address]) Cardio Equipment Recumbent Elliptical (Biodex) Duration (Minutes) 5 Resistance 11 Gym Equipment Shuttle Recovery Unilateral Squats Resistance 62# Shuttle Recovery Platform Stable Reps/Time 2x15 each Bilateral Squats Resistance 100 lbs Shuttle Recovery Platform Stable Reps/Time 2x10 Shuttle Balance 1 Details A/P normal stance, semi-tandem , lateral normal stance, NBOS Reps/Duration 10 min total Comments Red, UE alternating flex/ext. Therapeutic Exercises Standing Exercises resisted walk Side bilateral Resistance 2# TB Equipment Used lateral Reps/Minutes 4 lengths at bar HS stretch Side bilateral Equipment Used stairs Reps/Minutes 2x30 sec each HC stretch Side bilateral Reps/Minutes 30x2 Heel raises Side bilateral Reps/Minutes 2 x 10 Comments at bar Other Exercises Sit to stands from low chair Reps/Minutes 10x Comments cues for safety Neuro Re-Education Treatment Balance Activities 3 Details forward/Backwards Walking Equipment yellow tband Reps/Duration 2x20ft 2 Details Sidestepping Equipment yellow tband Reps/Duration 2x20ft 1 Details standing step ups Surface by stairs; 5 in step Reps/Duration 2 x 10 each side Comments worked on slow hip flexion to the step to work single leg balance; rail prn SLS Details at bar Surface leve Reps/Duration 5-10 x 3 each Tandem standing Details tandem walk Surface firm Equipment bar Reps/Duration 4 lengths PT-OP-T Assessment and Plan Start: 03/01/18 16:29 Freq: Status: Active Protocol: Document 06/16/18 09:41 SA (Rec: 06/16/18 09:48 SA [email or web address]) Physical Therapy Assessment Assessment Summary Assessment Pt progressing with dynamic balance trainng but needs cues for speed and control. Physical Therapy Plan Next Visit Focus/Plan Next Note Type Treatment Note Next Visit Plan cont to monitor for L knee pain, use gait belt for all standing, progress balance & dynamic activity.
--- NOTE | 2018-06-18 12:53 | PT.OTN ---
Current Diagnoses Polyneuropathy, unspecified (06/18/18) Other abnormalities of gait and mobility (06/18/18) Physical Therapy Treatment Note PT-OP-A Visit Information Start: 03/01/18 16:29 Freq: Status: Active Protocol: Document 06/18/18 12:41 SA (Rec: 06/18/18 12:53 SA [email or web address]) Out-Patient Physical Therapy Visit Information Visit Information Visit Type Treatment Note Visit Start Time 11:55 Visit Stop Time 12:40 Total Visit Minutes 45 Visit Number 24 Number of PHOTOGEOLOGIST Visits 2 PT-OP-B Current Condition Start: 03/01/18 16:29 Freq: Status: Active Protocol: Document 02/26/18 11:15 [facility] (Rec: 03/01/18 16:54 [facility] [email or web address]) Current Condition History of Current Condition Onset Date progressively worsening over the past year Current Complaints weakness, difficulty with walking, imbalance History of Current Condition Pt is a 78 y/o male presenting to physical therapy with a c/ o progressive weakness and numbness due to neuropathy in bilateral feet which has decrease his ability to balance and ambulate outdoors. Pt's presents today with the pt, stating that he is having more difficulty walking outside. He had a fall at home in August of 2017 with increased LE pain. Pt would like to improve his walking ability to be able to take his dog to the dog park and walk for >10 minutes without high levels of fatigue. Treatment Goals Patient/Caregiver Goals be able to walk >10 min at a time, improve balance and strength Prior Functional Status Baseline Function- Gait modified indep. gait outdoors to dog park from home-10-15 min walk outside Current Functional Impairments (Reported) Functional Limitations- Mobility/Gait requires prolonged rest after ambulating <10 min, difficulty with uneven terrain. Personal Factors Other Personal Factors That May Effect memory impairment, hearing Therapy/Recovery impairment, progressing neuropathy BLE PT-OP-C Subjective Start: 03/01/18 16:29 Freq: Status: Active Protocol: Document 06/18/18 12:41 SA (Rec: 06/18/18 12:53 SA [email or web address]) OP-PT Subjective Patient Comments Patient Comments Pt reports feeling like B legs are unstable L more than R, agreeable to trial SPC in clinic. PT-OP-D Balance Start: 03/01/18 16:29 Freq: Status: Active Protocol: Document 04/17/18 13:48 [facility] (Rec: 04/17/18 14:46 [facility] [email or web address]) Balance Tests Other Other Balance Tests Performed Increased weight shift to the R with lateral balance on Shuttle Balance Board. PT-OP-E Functional Tests Start: 03/01/18 16:29 Freq: Status: Active Protocol: Document 06/02/18 15:07 [facility] (Rec: 06/02/18 15:10 [facility] [email or web address]) Functional Tests Dynamic Gait Index (DGI) Score 14/24 DGI Impairment Rating 40 to <60% Impaired (Score 10- 14) PT-OP-G Mobility & Gait Start: 03/01/18 16:29 Freq: Status: Active Protocol: Document 06/02/18 15:07 [facility] (Rec: 06/02/18 15:10 [facility] [email or web address]) OP Gait Assessment Gait Gait Assistance Required: Independent Gait Deviations General Gait Pattern Decreased Stride Length Decreased Feet Clearance Factors Limiting Gait Function Factors Limiting Gait Function Decreased Activity Tolerance Decreased Sensation Decreased Strength Poor Balance Comments Gait Comments Pt arrives to PT without use of AD, although he reports that he occasionally uses bilateral walking sticks to maintain balance when walking dog outdoors on even ground. Pt exhibits decreased step length, decreased hip flexion/ toe clearance bilaterally but is stable. Slight postural instability with change in speed/direction with gait. Stair Climbing Evaluation Evaluation Level of Assist On Stairs Independent Devices Stair Climbing Assistive Devices Left Railing Right Railing Technique/Endurance Stair Climbing Direction Ascend and Descend Stair Climbing Technique Step Over Step Number of Steps Climbed 4 Comments Stair Climbing Comments Pt requires use of B handrails going down but able to use single handrail on the right side going up PT-OP-H Neuro Start: 03/01/18 16:29 Freq: Status: Active Protocol: Document 02/26/18 11:15 [facility] (Rec: 03/01/18 16:54 [facility] [email or web address]) Sensation Evaluation Comments Summary Comments impaired bilateral lower calf to feet PT-OP-J Posture/Palpation/Skin Start: 03/01/18 16:29 Freq: Status: Active Protocol: Document 02/26/18 11:15 RCC (Rec: 03/01/18 16:54 RCC [email or web address]) Skin Assessment Other Assessments Skin Assessment Comments purplish color bilateral feet; callus lateral plantar surface 5th MT (closed) L foot PT-OP-M Strength Start: 03/01/18 16:29 Freq: Status: Active Protocol: Document 06/02/18 15:07 [facility] (Rec: 06/02/18 15:10 [facility] [email or web address]) Hip Strength Hip Manual Muscle Testing Right Flexion (L2) 5 Normal Abduction 3 Fair External Rotation 4+ Good+ Internal Rotation 4+ Good+ Left Flexion (L2) 5 Normal Abduction 5 Normal External Rotation 4+ Good+ Internal Rotation 4+ Good+ Knee Strength Knee Manual Muscle Testing Right Flexion (S2) 4+ Good+ Extension (L3) 5 Normal Left Flexion (S2) 4+ Good+ Extension (L3) 5 Normal Ankle/Foot Strength Ankle and Foot Manual Muscle Testing Right Dorsiflexion (L4) 4+ Good+ Inversion 4+ Good+ Eversion (S1) 4 Good Left Dorsiflexion (L4) 4 Good Inversion 4 Good Eversion (S1) 4 Good PT-OP-Q Treatments Start: 03/01/18 16:29 Freq: Status: Active Protocol: Document 06/18/18 12:41 SA (Rec: 06/18/18 12:53 SA [email or web address]) Cardio Equipment Recumbent Elliptical (Biodex) Duration (Minutes) 6 Resistance 11 Gym Equipment Shuttle Recovery Unilateral Squats Resistance 62# Shuttle Recovery Platform Stable Reps/Time 2x15 each Bilateral Squats Resistance 112 lbs Shuttle Recovery Platform Stable Reps/Time 2x10 Shuttle Balance 1 Details A/P normal stance, semi-tandem , lateral normal stance, NBOS Reps/Duration 6 min Comments Red, UE alternating flex/ext. Therapeutic Exercises Standing Exercises 1 Standing Exercise Name standing hip abduction Resistance 5# Equipment Used // bar Reps/Minutes x10 each HS stretch Side bilateral Equipment Used stairs Reps/Minutes 2x30 sec each Other Exercises Sit to stands from low chair Reps/Minutes 10x Comments cues for safety Gait Training Gait Activity SPC Gait training Device Used SPC Level of Assistance SBA-CGA Surface level Distance/Duration 200 feet Treatment Focus Sequencing/safety Comments Pt using SPC in RUE with good sequencing and improved stability. Pt agreeable to use SPC multimedia technician to reduce risk of falls. Neuro Re-Education Treatment Balance Activities 3 Details forward/Backwards Walking Equipment yellow tband Reps/Duration 2x20ft 2 Details Sidestepping Equipment yellow tband Reps/Duration 2x20ft 1 Details standing step ups Surface by stairs; 5 in step Comments worked on slow hip flexion to the step to work single leg balance; rail prn SLS Details at bar Surface leve Reps/Duration 5-10 x 3 each PT-OP-T Assessment and Plan Start: 03/01/18 16:29 Freq: Status: Active Protocol: Document 06/18/18 12:41 SA (Rec: 06/18/18 12:53 SA [email or web address]) Physical Therapy Assessment Assessment Summary Assessment Pt to present in clinic next visit with SPC, agrees to use for all ambulation to reduce risk of falls, tolerating strengthening and balance progressions well. Physical Therapy Plan Next Visit Focus/Plan Next Note Type Treatment Note Next Visit Plan Follow up with use of SPC, progress LE strengthening and dynamic balance training.
--- NOTE | 2018-06-23 08:53 | PT.OTN ---
Current Diagnoses Polyneuropathy, unspecified (06/23/18) Other abnormalities of gait and mobility (06/23/18) Physical Therapy Treatment Note PT-OP-A Visit Information Start: 03/01/18 16:29 Freq: Status: Active Protocol: Document 06/23/18 08:11 [facility] (Rec: 06/23/18 08:53 [facility] [id number]) Out-Patient Physical Therapy Visit Information Visit Information Visit Type Treatment Note Visit Start Time 08:15 Visit Stop Time 08:55 Total Visit Minutes 40 Visit Number 25 Number of RELAY REPAIRER Visits 0 PT-OP-B Current Condition Start: 03/01/18 16:29 Freq: Status: Active Protocol: Document 02/26/18 11:15 RCC (Rec: 03/01/18 16:54 RCC [email or web address]) Current Condition History of Current Condition Onset Date progressively worsening over the past year Current Complaints weakness, difficulty with walking, imbalance History of Current Condition Pt is a 78 y/o male presenting to physical therapy with a c/ o progressive weakness and numbness due to neuropathy in bilateral feet which has decrease his ability to balance and ambulate outdoors. Pt's presents today with the pt, stating that he is having more difficulty walking outside. He had a fall at home in August of 2017 with increased LE pain. Pt would like to improve his walking ability to be able to take his dog to the dog park and walk for >10 minutes without high levels of fatigue. Treatment Goals Patient/Caregiver Goals be able to walk >10 min at a time, improve balance and strength Prior Functional Status Baseline Function- Gait modified indep. gait outdoors to dog park from home-10-15 min walk outside Current Functional Impairments (Reported) Functional Limitations- Mobility/Gait requires prolonged rest after ambulating <10 min, difficulty with uneven terrain. Personal Factors Other Personal Factors That May Effect memory impairment, hearing Therapy/Recovery impairment, progressing neuropathy BLE PT-OP-C Subjective Start: 03/01/18 16:29 Freq: Status: Active Protocol: Document 06/23/18 08:11 [facility] (Rec: 06/23/18 08:53 [facility] [id number]) OP-PT Subjective Patient Comments Patient Comments Pt reports he has been using the cane at home. Reports he watered his lawn yesterday. PT-OP-D Balance Start: 03/01/18 16:29 Freq: Status: Active Protocol: Document 04/17/18 13:48 RCC (Rec: 04/17/18 14:46 RCC [email or web address]) Balance Tests Other Other Balance Tests Performed Increased weight shift to the R with lateral balance on Shuttle Balance Board. PT-OP-E Functional Tests Start: 03/01/18 16:29 Freq: Status: Active Protocol: Document 06/02/18 15:07 [facility] (Rec: 06/02/18 15:10 [facility] [email or web address]) Functional Tests Dynamic Gait Index (DGI) Score 14/24 DGI Impairment Rating 40 to <60% Impaired (Score 10- 14) PT-OP-G Mobility & Gait Start: 03/01/18 16:29 Freq: Status: Active Protocol: Document 06/02/18 15:07 [facility] (Rec: 06/02/18 15:10 [facility] [email or web address]) OP Gait Assessment Gait Gait Assistance Required: Independent Gait Deviations General Gait Pattern Decreased Stride Length Decreased Feet Clearance Factors Limiting Gait Function Factors Limiting Gait Function Decreased Activity Tolerance Decreased Sensation Decreased Strength Poor Balance Comments Gait Comments Pt arrives to PT without use of AD, although he reports that he occasionally uses bilateral walking sticks to maintain balance when walking dog outdoors on even ground. Pt exhibits decreased step length, decreased hip flexion/ toe clearance bilaterally but is stable. Slight postural instability with change in speed/direction with gait. Stair Climbing Evaluation Evaluation Level of Assist On Stairs Independent Devices Stair Climbing Assistive Devices Left Railing Right Railing Technique/Endurance Stair Climbing Direction Ascend and Descend Stair Climbing Technique Step Over Step Number of Steps Climbed 4 Comments Stair Climbing Comments Pt requires use of B handrails going down but able to use single handrail on the right side going up PT-OP-H Neuro Start: 03/01/18 16:29 Freq: Status: Active Protocol: Document 02/26/18 11:15 RCC (Rec: 03/01/18 16:54 RCC [email or web address]) Sensation Evaluation Comments Summary Comments impaired bilateral lower calf to feet PT-OP-J Posture/Palpation/Skin Start: 03/01/18 16:29 Freq: Status: Active Protocol: Document 02/26/18 11:15 RCC (Rec: 03/01/18 16:54 RCC [email or web address]) Skin Assessment Other Assessments Skin Assessment Comments purplish color bilateral feet; callus lateral plantar surface 5th MT (closed) L foot PT-OP-M Strength Start: 03/01/18 16:29 Freq: Status: Active Protocol: Document 06/02/18 15:07 [facility] (Rec: 06/02/18 15:10 [facility] [email or web address]) Hip Strength Hip Manual Muscle Testing Right Flexion (L2) 5 Normal Abduction 3 Fair External Rotation 4+ Good+ Internal Rotation 4+ Good+ Left Flexion (L2) 5 Normal Abduction 5 Normal External Rotation 4+ Good+ Internal Rotation 4+ Good+ Knee Strength Knee Manual Muscle Testing Right Flexion (S2) 4+ Good+ Extension (L3) 5 Normal Left Flexion (S2) 4+ Good+ Extension (L3) 5 Normal Ankle/Foot Strength Ankle and Foot Manual Muscle Testing Right Dorsiflexion (L4) 4+ Good+ Inversion 4+ Good+ Eversion (S1) 4 Good Left Dorsiflexion (L4) 4 Good Inversion 4 Good Eversion (S1) 4 Good PT-OP-Q Treatments Start: 03/01/18 16:29 Freq: Status: Active Protocol: Document 06/23/18 08:11 [facility] (Rec: 06/23/18 08:53 [facility] [id number]) Cardio Equipment Recumbent Elliptical (Biodex) Duration (Minutes) 7 Resistance 12 Gym Equipment Shuttle Recovery Unilateral Squats Resistance 50# Shuttle Recovery Platform Stable Reps/Time 2x15 each Bilateral Squats Resistance 100 lbs Shuttle Recovery Platform Stable Reps/Time 2x15 Shuttle Balance 1 Details A/P & lat:WBOS & NB, semi- tandem, lateral normal stance, NBOS fwd staggered Comments Red, UE alternating flex/ext fwd WBOS & NBOS Neuro Re-Education Treatment Balance Activities EC Details fwd/back walk Reps/Duration 20ft hurdles Details fwd then lat walking Reps/Duration fwd x6 laps; side step x2 laps B 3 Details forward/Backwards Walking Equipment Red tband Reps/Duration 2x20ft 2 Details Sidestepping Equipment red tband Reps/Duration 2x20ft 1 Details standing step ups Surface by stairs; 5 in step Reps/Duration 10 B Comments worked on slow hip flexion to the step to work single leg balance; rail prn Tandem standing Details tandem walk Surface firm Equipment bar Reps/Duration 4x20ft PT-OP-T Assessment and Plan Start: 03/01/18 16:29 Freq: Status: Active Protocol: Document 06/23/18 08:11 [facility] (Rec: 06/23/18 08:53 [facility] [id number]) Physical Therapy Assessment Goals Home exercise- walking program Impairment limited ability to ambulate outdoors. [facility] Goal (LTG) Pt will participate in daily ambulation outdoors on uneven terrain for at least 15 min to perform recreational activities such as taking/ walking his do to/from the dog park. NOT MET, PROGRESSING TOWARD. LTG Duration 12 weeks 6 Minute Walk Test Impairment 823 ft Short Term Goal (STG) 950 ft or greater with 6 Minute Walk Test to demonstrate improvements with gait tolerance. STG Duration 6 weeks [facility] Goal (LTG) 1100 ft or greater with 6 Minute Walk Test to demonstrate improvements with gait tolerance. NOT ASSESSED TODAY PER PT REQUEST due to fatigue. LE weakness Impairment LE weakness to manual muscle testing (MMT) Enterostomal Nurse Goal (LTG) LE MMT grossly 4+/5 or greater to improve tolerance to ambulating on uneven terrain. MET 05/13/18. LTG Duration 12 weeks DGI Impairment Dynamic Gait Index 13/24 Short Term Goal (STG) Score of at least 16/24 with the DGI to demonstrate improvements with functional gait and balance STG Duration 6 weeks [facility] Goal (LTG) Score of at least 19/24 with the DGI to demonstrate improvements with functional gait and balance, and decrease fall risk. NOT MET. DGI score 05/13/18 was 14/24. LTG Duration 12 weeks Assessment Summary Assessment Pt able to improve with ability to do step ups with use of rail for stability only 1 time today. Improved ability with balance board today and was able to try harder stances. he was able to inc resistance with side step and fwd step but had dec resistance on leg press d/t fatigue at end of session. Physical Therapy Plan Frequency and Duration Frequency of Treatment 2x/Week Duration of Treatment 10-12 weeks Plan of Care Start Date 05/13/18 Plan of Care End Date 08/05/18 Next Visit Focus/Plan Next Note Type Treatment Note Next Visit Plan Cont to progress balance
--- NOTE | 2018-06-25 18:05 | PT.OTN ---
Current Diagnoses Polyneuropathy, unspecified (06/25/18) Other abnormalities of gait and mobility (06/25/18) Physical Therapy Treatment Note PT-OP-A Visit Information Start: 03/01/18 16:29 Freq: Status: Active Protocol: Document 06/25/18 11:15 HH (Rec: 06/25/18 12:08 HH [email or web address]) Out-Patient Physical Therapy Visit Information Visit Information Visit Type Treatment Note Visit Start Time 11:15 Visit Stop Time 12:00 Total Visit Minutes 45 Visit Number 26 Number of RN TRANSPORT Visits 0 PT-OP-B Current Condition Start: 03/01/18 16:29 Freq: Status: Active Protocol: Document 02/26/18 11:15 RCC (Rec: 03/01/18 16:54 RCC [email or web address]) Current Condition History of Current Condition Onset Date progressively worsening over the past year Current Complaints weakness, difficulty with walking, imbalance History of Current Condition Pt is a 78 y/o male presenting to physical therapy with a c/ o progressive weakness and numbness due to neuropathy in bilateral feet which has decrease his ability to balance and ambulate outdoors. Pt's presents today with the pt, stating that he is having more difficulty walking outside. He had a fall at home in August of 2017 with increased LE pain. Pt would like to improve his walking ability to be able to take his dog to the dog park and walk for >10 minutes without high levels of fatigue. Treatment Goals Patient/Caregiver Goals be able to walk >10 min at a time, improve balance and strength Prior Functional Status Baseline Function- Gait modified indep. gait outdoors to dog park from home-10-15 min walk outside Current Functional Impairments (Reported) Functional Limitations- Mobility/Gait requires prolonged rest after ambulating <10 min, difficulty with uneven terrain. Personal Factors Other Personal Factors That May Effect memory impairment, hearing Therapy/Recovery impairment, progressing neuropathy BLE PT-OP-C Subjective Start: 03/01/18 16:29 Freq: Status: Active Protocol: Document 06/25/18 11:15 HH (Rec: 06/25/18 12:08 HH [email or web address]) OP-PT Subjective Patient Comments Patient Comments I've been walking more and taking my dog out more often as well. I feel pretty good so far but my knee hurt quite bad after heel toe gait training last time. PT-OP-D Balance Start: 03/01/18 16:29 Freq: Status: Active Protocol: Document 04/17/18 13:48 RCC (Rec: 04/17/18 14:46 RCC [email or web address]) Balance Tests Other Other Balance Tests Performed Increased weight shift to the R with lateral balance on Shuttle Balance Board. PT-OP-E Functional Tests Start: 03/01/18 16:29 Freq: Status: Active Protocol: Document 06/02/18 15:07 [facility] (Rec: 06/02/18 15:10 [facility] [email or web address]) Functional Tests Dynamic Gait Index (DGI) Score 1424 DGI Impairment Rating 40 to <60% Impaired (Score 10- 14) PT-OP-G Mobility & Gait Start: 03/01/18 16:29 Freq: Status: Active Protocol: Document 06/02/18 15:07 [facility] (Rec: 06/02/18 15:10 [facility] [email or web address]) OP Gait Assessment Gait Gait Assistance Required: Independent Gait Deviations General Gait Pattern Decreased Stride Length Decreased Feet Clearance Factors Limiting Gait Function Factors Limiting Gait Function Decreased Activity Tolerance Decreased Sensation Decreased Strength Poor Balance Comments Gait Comments Pt arrives to PT without use of AD, although he reports that he occasionally uses bilateral walking sticks to maintain balance when walking dog outdoors on even ground. Pt exhibits decreased step length, decreased hip flexion/ toe clearance bilaterally but is stable. Slight postural instability with change in speed/direction with gait. Stair Climbing Evaluation Evaluation Level of Assist On Stairs Independent Devices Stair Climbing Assistive Devices Left Railing Right Railing Technique/Endurance Stair Climbing Direction Ascend and Descend Stair Climbing Technique Step Over Step Number of Steps Climbed 4 Comments Stair Climbing Comments Pt requires use of B handrails going down but able to use single handrail on the right side going up PT-OP-H Neuro Start: 03/01/18 16:29 Freq: Status: Active Protocol: Document 02/26/18 11:15 [facility] (Rec: 03/01/18 16:54 RCC [email or web address]) Sensation Evaluation Comments Summary Comments impaired bilateral lower calf to feet PT-OP-J Posture/Palpation/Skin Start: 03/01/18 16:29 Freq: Status: Active Protocol: Document 02/26/18 11:15 [facility] (Rec: 03/01/18 16:54 RCC [email or web address]) Skin Assessment Other Assessments Skin Assessment Comments purplish color bilateral feet; callus lateral plantar surface 5th MT (closed) L foot PT-OP-M Strength Start: 03/01/18 16:29 Freq: Status: Active Protocol: Document 06/02/18 15:07 [facility] (Rec: 06/02/18 15:10 [facility] [email or web address]) Hip Strength Hip Manual Muscle Testing Right Flexion (L2) 5 Normal Abduction 3 Fair External Rotation 4+ Good+ Internal Rotation 4+ Good+ Left Flexion (L2) 5 Normal Abduction 5 Normal External Rotation 4+ Good+ Internal Rotation 4+ Good+ Knee Strength Knee Manual Muscle Testing Right Flexion (S2) 4+ Good+ Extension (L3) 5 Normal Left Flexion (S2) 4+ Good+ Extension (L3) 5 Normal Ankle/Foot Strength Ankle and Foot Manual Muscle Testing Right Dorsiflexion (L4) 4+ Good+ Inversion 4+ Good+ Eversion (S1) 4 Good Left Dorsiflexion (L4) 4 Good Inversion 4 Good Eversion (S1) 4 Good PT-OP-Q Treatments Start: 03/01/18 16:29 Freq: Status: Active Protocol: Document 06/25/18 11:15 HH (Rec: 06/25/18 18:05 HH [email or web address]) Cardio Equipment Recumbent Stepper (Sci-Fit) Duration (Minutes) 8 Resistance 11-15 Seat Position 16 Therapeutic Exercises Standing Exercises high knee walking Side bilateral Equipment Used //bar Reps/Minutes 8 rounds Comments cues on slow walking to focus on SLS 1/2 lunge Side left Equipment Used with grab bar Reps/Minutes 8 x 4 Comments facilitate L knee flexion and WB step up Standing Exercise Name step up and down Side bilateral Equipment Used 4 inch box Reps/Minutes 10 x 4 Comments without UE support Other Exercises Sit to stands from low chair Reps/Minutes 10x Comments cues for safety Neuro Re-Education Treatment Balance Activities hurdles Details fwd then lat walking Reps/Duration fwd x6 laps; side step x6 laps B PT-OP-T Assessment and Plan Start: 03/01/18 16:29 Freq: Status: Active Protocol: Document 06/25/18 11:15 HH (Rec: 06/25/18 18:05 HH [email or web address]) Physical Therapy Assessment Assessment Summary Assessment Pt regino tx very well. Added 1/2 lunges to increase pt's awareness of WB through LLE. Also focused on hurdles, slow walk to facilitate single leg stance. Physical Therapy Plan Next Visit Focus/Plan Next Note Type Treatment Note Next Visit Plan Cont to progress balance LLE WB/strengthening ex
--- NOTE | 2018-08-08 13:00 | PT.OPDS ---
Current Diagnoses Polyneuropathy, unspecified (06/25/18) Other abnormalities of gait and mobility (06/25/18) Provider Visit Care Team Role Provider Type Emir Moya MD Attending Provider Physician Primary Care Provider Specialty: Internal Medicine Address: [address] [place] [address], [facility] Email: [email or web address] Visit Number Visit Number [id number] Discharge Summary PT-OP-B Current Condition Start: 03/01/18 16:29 Freq: Status: Active Protocol: Document 02/26/18 11:15 RCC (Rec: 03/01/18 16:54 RCC [email or web address]) Current Condition History of Current Condition Onset Date progressively worsening over the past year Current Complaints weakness, difficulty with walking, imbalance History of Current Condition Pt is a 78 y/o male presenting to physical therapy with a c/ o progressive weakness and numbness due to neuropathy in bilateral feet which has decrease his ability to balance and ambulate outdoors. Pt's presents today with the pt, stating that he is having more difficulty walking outside. He had a fall at home in August of 2017 with increased LE pain. Pt would like to improve his walking ability to be able to take his dog to the dog park and walk for >10 minutes without high levels of fatigue. Treatment Goals Patient/Caregiver Goals be able to walk >10 min at a time, improve balance and strength Prior Functional Status Baseline Function- Gait modified indep. gait outdoors to dog park from home-10-15 min walk outside Current Functional Impairments (Reported) Functional Limitations- Mobility/Gait requires prolonged rest after ambulating <10 min, difficulty with uneven terrain. Personal Factors Other Personal Factors That May Effect memory impairment, hearing Therapy/Recovery impairment, progressing neuropathy BLE PT-OP-C Subjective Start: 03/01/18 16:29 Freq: Status: Active Protocol: Document 06/25/18 11:15 HH (Rec: 06/25/18 12:08 HH [email or web address]) OP-PT Subjective Patient Comments Patient Comments I've been walking more and taking my dog out more often as well. I feel pretty good so far but my knee hurt quite bad after heel toe gait training last time. PT-OP-D Balance Start: 03/01/18 16:29 Freq: Status: Active Protocol: Document 04/17/18 13:48 RCC (Rec: 04/17/18 14:46 RCC [email or web address]) Balance Tests Other Other Balance Tests Performed Increased weight shift to the R with lateral balance on Shuttle Balance Board. PT-OP-E Functional Tests Start: 03/01/18 16:29 Freq: Status: Active Protocol: Document 06/02/18 15:07 AMH (Rec: 06/02/18 15:10 AMH [email or web address]) Functional Tests Dynamic Gait Index (DGI) Score 14/24 DGI Impairment Rating 40 to <60% Impaired (Score 10- 14) PT-OP-G Mobility & Gait Start: 03/01/18 16:29 Freq: Status: Active Protocol: Document 06/02/18 15:07 AMH (Rec: 06/02/18 15:10 AMH [email or web address]) OP Gait Assessment Gait Gait Assistance Required: Independent Gait Deviations General Gait Pattern Decreased Stride Length Decreased Feet Clearance Factors Limiting Gait Function Factors Limiting Gait Function Decreased Activity Tolerance Decreased Sensation Decreased Strength Poor Balance Comments Gait Comments Pt arrives to PT without use of AD, although he reports that he occasionally uses bilateral walking sticks to maintain balance when walking dog outdoors on even ground. Pt exhibits decreased step length, decreased hip flexion/ toe clearance bilaterally but is stable. Slight postural instability with change in speed/direction with gait. Stair Climbing Evaluation Evaluation Level of Assist On Stairs Independent Devices Stair Climbing Assistive Devices Left Railing Right Railing Technique/Endurance Stair Climbing Direction Ascend and Descend Stair Climbing Technique Step Over Step Number of Steps Climbed 4 Comments Stair Climbing Comments Pt requires use of B handrails going down but able to use single handrail on the right side going up PT-OP-H Neuro Start: 03/01/18 16:29 Freq: Status: Active Protocol: Document 02/26/18 11:15 RCC (Rec: 03/01/18 16:54 RCC [email or web address]) Sensation Evaluation Comments Summary Comments impaired bilateral lower calf to feet PT-OP-J Posture/Palpation/Skin Start: 03/01/18 16:29 Freq: Status: Active Protocol: Document 02/26/18 11:15 RCC (Rec: 03/01/18 16:54 RCC [email or web address]) Skin Assessment Other Assessments Skin Assessment Comments purplish color bilateral feet; callus lateral plantar surface 5th MT (closed) L foot PT-OP-M Strength Start: 03/01/18 16:29 Freq: Status: Active Protocol: Document 06/02/18 15:07 AMH (Rec: 06/02/18 15:10 AMH [email or web address]) Hip Strength Hip Manual Muscle Testing Right Flexion (L2) 5 Normal Abduction 3 Fair External Rotation 4+ Good+ Internal Rotation 4+ Good+ Left Flexion (L2) 5 Normal Abduction 5 Normal External Rotation 4+ Good+ Internal Rotation 4+ Good+ Knee Strength Knee Manual Muscle Testing Right Flexion (S2) 4+ Good+ Extension (L3) 5 Normal Left Flexion (S2) 4+ Good+ Extension (L3) 5 Normal Ankle/Foot Strength Ankle and Foot Manual Muscle Testing Right Dorsiflexion (L4) 4+ Good+ Inversion 4+ Good+ Eversion (S1) 4 Good Left Dorsiflexion (L4) 4 Good Inversion 4 Good Eversion (S1) 4 Good PT-OP-T Assessment and Plan Start: 03/01/18 16:29 Freq: Status: Active Protocol: Document 08/08/18 12:55 RCC (Rec: 08/08/18 12:59 RCC [email or web address]) Physical Therapy Assessment Goals Home exercise- walking program Impairment limited ability to ambulate outdoors. Mud Boss Goal (LTG) Pt will participate in daily ambulation outdoors on uneven terrain for at least 15 min to perform recreational activities such as taking/ walking his do to/from the dog park. NOT MET, PROGRESSING TOWARD. LTG Duration 12 weeks 6 Minute Walk Test Impairment 823 ft Short Term Goal (STG) 950 ft or greater with 6 Minute Walk Test to demonstrate improvements with gait tolerance. STG Duration 6 weeks Mud Boss Goal (LTG) 1100 ft or greater with 6 Minute Walk Test to demonstrate improvements with gait tolerance. NOT ASSESSED TODAY PER PT REQUEST due to fatigue. LE weakness Impairment LE weakness to manual muscle testing (MMT) Mud Boss Goal (LTG) LE MMT grossly 4+/5 or greater to improve tolerance to ambulating on uneven terrain. MET 05/13/18. LTG Duration 12 weeks DGI Impairment Dynamic Gait Index Short Term Goal (STG) Score of at least with the DGI to demonstrate improvements with functional gait and balance STG Duration 6 weeks Longterm Goal (LTG) Score of at least with the DGI to demonstrate improvements with functional gait and balance, and decrease fall risk. NOT MET. DGI score 05/13/18 was 14/24. LTG Duration 12 weeks Assessment Summary Assessment Pt did not attend or schedule further appointments beyond his final visit on 06/25/2018, and now is beyond his most recent plan of care. Pt had made slow, but steady progress with LE strengthening as well as progress with outdoor ambulation tolerance, but had not yet met goals of Dynamic Gait Index or 6 Minute Walk Test. Pt at this time still presents as a fall risk, and likely would benefit from further skilled physical therapy again if MD deems medically necessary. Pt will be d/c at this time due to failure to complete his most recent plan of care. Objective measures carried forward from 06/23/2018. Physical Therapy Plan Discharge Physical Therapy Discharge Reasons No Longer Attending PT
== END 2018-08-21 10:52 | disposition home or self-care (01) ==
LOC: PHYS 11:15
PROVIDERS: PCP Internal Medicine; Visit Provider Internal Medicine
DX: R26.89 Other abnormalities of gait and mobility (principal); G62.9 Polyneuropathy, unspecified
CPT/HCPCS: 97110; 97112; 97116; 97140; 97162

== ENCOUNTER → 2018-09-30 07:00 | Outpatient (CLI) | payer MEDICARE, BC, SELFPAY ==
[2018-09-30 08:14] LABS: Alanine Aminotransferase 23 IU/L (21-72); Albumin 4.4 g/dL (3.5-5.0); Albumin Globulin Ratio 1.4 (1.0-2.8); Alkaline Phosphatase 63 U/L (38-126); Aspartate Aminotransferase 31 IU/L (17-59); BUN Creatinine Ratio 22.9 (6-22); Bilirubin Total 1.1 mg/dL (0.2-1.3); Blood Urea Nitrogen 32 mg/dL (9-20); Calcium 9.4 mg/dL (8.4-10.2); Carbon Dioxide 27 mmol/L (22-32); Chloride 103 mmol/L (98-107); Cholesterol 175 mg/dL (140-199); Estimated Glomerular Filt Rate 48.9 mL/min (>60); Globulin 3.2 g/dL (1.7-4.1); Glucose 114 mg/dL (80-110); HDL Cholesterol 63 mg/dL (40-60); HEMOLYSIS < 15 (0-50); LDL Cholesterol Calculated 92 mg/dL (<100); Magnesium 2.2 mg/dL (1.6-2.3); Potassium 4.2 mmol/L (3.4-5.1); Sodium 140 mmol/L (137-145); Total Protein 7.6 g/dL (6.3-8.2); Triglycerides 99 mg/dL (35-150)
== END ==
PROVIDERS: PCP Internal Medicine; Visit Provider Internal Medicine
DX: E78.2 Mixed hyperlipidemia (principal); F09 Unspecified mental disorder due to known physiological condition; I10 Essential (primary) hypertension; I25.10 Atherosclerotic heart disease of native coronary artery without angina pectoris
CPT/HCPCS: 36415; 80053; 80061; 83735

== ENCOUNTER → 2019-05-28 08:23 | Outpatient (CLI) | payer MEDICARE, BC, SELFPAY ==
[2019-05-28 10:36] LABS: Alanine Aminotransferase 17 IU/L (<50); Albumin Globulin Ratio 1.2 (1.0-2.8); Alkaline Phosphatase 50 U/L (38-126); Aspartate Aminotransferase 27 IU/L (17-59); BUN Creatinine Ratio 18.9 (6-22); Blood Urea Nitrogen 28 mg/dL (9-20); Calcium 9.2 mg/dL (8.4-10.2); Carbon Dioxide 23 mmol/L (22-32); Chloride 112 mmol/L (98-107); Estimated Glomerular Filt Rate 45.7 mL/min (>60); Globulin 3.3 g/dL (1.7-4.1); Glucose 108 mg/dL (80-110); HEMOLYSIS < 15 (0-50); Magnesium 2.3 mg/dL (1.6-2.3); Potassium 5.1 mmol/L (3.4-5.1); Sodium 142 mmol/L (137-145); Total Protein 7.3 g/dL (6.3-8.2)
== END ==
PROVIDERS: PCP Internal Medicine; Referring Provider Internal Medicine; Visit Provider Internal Medicine
DX: E78.2 Mixed hyperlipidemia (principal); I10 Essential (primary) hypertension; N18.2 Chronic kidney disease, stage 2 (mild)
CPT/HCPCS: 36415; 80053; 83735

== ENCOUNTER → 2019-12-01 08:17 | Outpatient (CLI) | payer MEDICARE, BC, SELFPAY ==
[2019-12-01 11:27] LABS: Alanine Aminotransferase 15 IU/L (<50); Albumin 3.8 g/dL (3.5-5.0); Albumin Globulin Ratio 1.3 (1.0-2.8); Alkaline Phosphatase 54 U/L (38-126); Aspartate Aminotransferase 23 IU/L (17-59); BUN Creatinine Ratio 22.5 (6-22); Bilirubin Total 0.9 mg/dL (0.2-1.3); Blood Urea Nitrogen 38 mg/dL (9-20); Calcium 8.8 mg/dL (8.4-10.2); Carbon Dioxide 26 mmol/L (22-32); Chloride 106 mmol/L (98-107); Cholesterol 155 mg/dL (140-199); Estimated Glomerular Filt Rate 39.2 mL/min (>60); Globulin 2.9 g/dL (1.7-4.1); Glucose 95 mg/dL (80-110); HDL Cholesterol 46 mg/dL (40-60); HEMOLYSIS < 15 (0-50); LDL Cholesterol Calculated 87 mg/dL (<100); Potassium 4.2 mmol/L (3.4-5.1); Sodium 137 mmol/L (137-145); Total Protein 6.7 g/dL (6.3-8.2); Triglycerides 112 mg/dL (35-150)
== END ==
PROVIDERS: PCP Family Medicine; Referring Provider Internal Medicine; Visit Provider Internal Medicine
DX: E78.2 Mixed hyperlipidemia (principal); F02.80 Dementia in other diseases classified elsewhere, unspecified severity, without behavioral disturbance, psychotic disturbance, mood disturbance, and anxiety; G30.9 Alzheimer's disease, unspecified; G62.9 Polyneuropathy, unspecified; I10 Essential (primary) hypertension; I25.10 Atherosclerotic heart disease of native coronary artery without angina pectoris; N18.2 Chronic kidney disease, stage 2 (mild)
CPT/HCPCS: 36415; 80053; 80061

== ENCOUNTER → 2019-12-29 07:27 | Outpatient (CLI) | payer MEDICARE, BC, SELFPAY ==
[2019-12-29 09:39] LABS: Prostate Specific Antigen Scrn 70.2 ng/mL (0.1-4.0)
== END ==
PROVIDERS: PCP Family Medicine; Referring Provider Family Medicine; Visit Provider Family Medicine
DX: R97.20 Elevated prostate specific antigen [PSA] (principal); Z80.42 Family history of malignant neoplasm of prostate
CPT/HCPCS: 36415; 84153; G0103

== ENCOUNTER → 2020-02-21 08:18 | Outpatient (CLI) | payer MEDICARE, BC, SELFPAY ==
[2020-02-21 08:47] LABS: Add Manual Diff / Slide Review NO; Basophils Absolute Auto 0 /uL (0-100); Basophils Percent Auto 0.5 % (0-2); Eosinophils Absolute Auto 400 /uL (0-450); Eosinophils Percent Auto 5.8 % (2-4); Hematocrit 37.7 % (41-53); Hemoglobin 12.2 g/dL (13.5-17.5); Lymphocytes Absolute Auto 2000 /uL (1100-4500); Lymphocytes Percent Auto 26.6 % (25-40); Mean Corpuscular HGB Conc 32.5 % (30-36); Mean Corpuscular Hemoglobin 31.1 PG (26-34); Mean Corpuscular Volume 95.6 fL (80-100); Monocytes Absolute Auto 600 /uL (0-900); Monocytes Percent Auto 7.7 % (3-14); Neutrophils Absolute Auto 4500 /uL (1500-7000); Neutrophils Percent Auto 59.4 % (50-75); Platelet Count 195 X10^3/uL (150-400); Red Blood Cell Count 3.94 X10^6/uL (4.5-5.9); Red Cell Distribution Width 14.8 % (11.6-14.8); White Blood Cell Count 7.6 X10^3/uL (4.5-11.0)
[2020-02-21 09:22] LABS: Alanine Aminotransferase 16 IU/L (<50); Albumin Globulin Ratio 1.1 (1.0-2.8); Alkaline Phosphatase 57 U/L (38-126); Aspartate Aminotransferase 24 IU/L (17-59); BUN Creatinine Ratio 19.6 (6-22); Bilirubin Total 0.7 mg/dL (0.2-1.3); Blood Urea Nitrogen 33 mg/dL (9-20); Calcium 8.9 mg/dL (8.4-10.2); Carbon Dioxide 29 mmol/L (22-32); Chloride 110 mmol/L (98-107); Estimated Glomerular Filt Rate 39.4 mL/min (>60); Globulin 3.5 g/dL (1.7-4.1); Glucose 113 mg/dL (80-110); HEMOLYSIS < 15 (0-50); Potassium 4.7 mmol/L (3.4-5.1); Sodium 141 mmol/L (137-145); Total Protein 7.5 g/dL (6.3-8.2)
[2020-02-21 09:25] LABS: NT-proBNP (BNP-Adult 18+) 355 pg/mL (<450)
[2020-02-21 09:47] LABS: Thyroid Stimulating Hormone 4.27 uIU/mL (0.47-4.68)
== END ==
PROVIDERS: PCP Family Medicine; Referring Provider Internal Medicine Cardiovascular Disease; Visit Provider Internal Medicine Cardiovascular Disease
DX: I10 Essential (primary) hypertension (principal); R06.02 Shortness of breath; M79.89 Other specified soft tissue disorders
CPT/HCPCS: 36415; 80053; 83880; 84443; 85025

== ENCOUNTER → 2020-02-23 13:45 | Outpatient (CLI) | payer MEDICARE, BC, SELFPAY ==
--- NOTE | 2020-02-23 | DI.ECHO.S_ITS ---
[facility] +---------+ : : [address] [place] : : : : [id number] : : : : Phone: [phone]+ Echocardiogram Report + + :Name: CLEVE DIOP Study Date: 02/23/2020 Height: 74 in : :[facility] Weight: 227 lb : : Gender: Male BSA: 2.3 m2 : :: 1940 Age: 80 yrs BP: 157/74 mmHg: :Reason For Study: CORONARY ARTERY BYPASS GRAFT, : :ATHEROSCLEROSIS : :Ordering Physician: JAMIR, : :LUPE Performed By: Melissa Mcfarland : :Referring: LUPE SUERO : + + Interpretation Summary Left ventricular ejection fraction is estimated to be 50 +/- 5%. Regional wall motion abnormalities cannot be excluded due to limited visualization. The right ventricle is at the upper limits of normal in size. Right ventricular systolic function is moderately reduced. There is mild aortic valve sclerosis. There is mild aortic regurgitation. There is mild tricuspid regurgitation. Right ventricular systolic pressure is estimated to be 30 mmHg plus the clinically estimated CVP which cannot be estimated on this exam. Procedure: A two-dimensional transthoracic echocardiogram with color flow and Doppler was performed. The study quality was technically adequate. Comparison is made with the echocardiogram of 11/19/2016. The heart rate ranged between 51-79 bpm during the study. Left Ventricle: The left ventricle is normal in size. There is moderate concentric left ventricular hypertrophy. Left ventricular ejection fraction is estimated to be 50 +/- 5%. There has been no significant change since the previous exam. Regional wall motion abnormalities cannot be excluded due to limited visualization. Right Ventricle: The right ventricle is at the upper limits of normal in size. Right ventricular systolic function is moderately reduced. Atria: Both atria are normal in size. There is no Doppler evidence for an interatrial shunt. Mitral Valve: The mitral valve leaflets appear mildly thickened, but open well. There is mild mitral annular calcification. There is trace mitral regurgitation. Aortic Valve: The aortic valve is trileaflet. The aortic valve opens well. The aortic valve is mildly calcified. There is mild aortic valve sclerosis. There is no aortic valve stenosis. There is mild aortic regurgitation. Tricuspid Valve: The tricuspid valve is normal in structure and function. There is mild tricuspid regurgitation. Right ventricular systolic pressure is estimated to be 30 mmHg plus the clinically estimated CVP which cannot be estimated on this exam. Pulmonic Valve: The pulmonic valve is not well seen, but is grossly normal. There is trace pulmonic regurgitation. Great Vessels: The aortic root is normal size. The ascending aorta is mildly enlarged. The inferior vena cava was not visualized. Pericardium/ Pleura There is no pericardial effusion. There is no pleural effusion. MMode/2D Measurements & Calculations LVIDd: 4.0 cm LVOT diam: 2.4 cm LVIDs: 2.8 cm Ao root diam: 3.6 cm FS: 29.3 % asc Aorta Diam: 3.7 cm EPSS: 1.9 cm Ao Arch Diam (Prox Trans): 2.8 cm IVSd: 1.7 cm LVPWd: 1.5 cm LV kitchen. diameter/BSA (cm/m^2): 1.7 LV sys. diameter/BSA (cm/m^2): 1.2 LA A2 area: 20.2 cm2 RA long axis: 6.5 cm LA A4 area: 22.0 cm2 RA area: 16.7 cm2 LA length (vol): 6.1 cm RA vol: 36.4 ml LA vol: 61.5 ml RA : 15.9 ml/m2 LA vol index: 26.8 ml/m2 RVD1 (basal): 4.1 cm TAPSE: 1.3 cm Doppler Measurements & Calculations Ao V2 max: 177.5 cm/sec LVOT Max Camden: 73.0 cm/sec Ao V2 mean: 132.1 cm/sec LV V1 max P.1 mmHg Ao max P.7 mmHg LV V1 VTI: 14.0 cm Ao mean P.7 mmHg AIDEN(I,D): 1.9 cm2 Ao V2 VTI: 34.0 cm AIDEN(V,D): 1.9 cm2 sev ratio: 0.41 AIDEN indexed to BSA (cm^2/m^2): 0.82 AI P1/2t: 830.2 msec AI dec slope: 121.1 cm/sec2 MV E max camden: 40.7 cm/sec TR max camden: 273.0 cm/sec MV A max camden: 79.7 cm/sec TR max P.9 mmHg MV E/A: 0.51 PA V2 max: 67.3 cm/sec Med Peak E' Camden: 4.6 cm/sec PA V2 mean: 42.6 cm/sec E/E' med: 8.8 PA mean P.84 mmHg Lat Peak E' Camden: 10.3 cm/sec PA pr(Accel): 36.2 mmHg E/E' lat: 3.9 E/e' average: 6.4 MV dec time: 0.49 sec SV(LVOT): 64.1 ml Reading Physician:11:50 AM
== END ==
PROVIDERS: PCP Family Medicine; Referring Provider Family Medicine; Visit Provider Internal Medicine Cardiovascular Disease
DX: I25.810 Atherosclerosis of coronary artery bypass graft(s) without angina pectoris (principal)
CPT/HCPCS: 93306

== ENCOUNTER → 2020-03-06 11:32 | Outpatient (CLI) | payer MEDICARE, BC, SELFPAY ==
[2020-03-06 13:30] LABS: BUN Creatinine Ratio 22.9 (6-22); Blood Urea Nitrogen 40 mg/dL (9-20); Calcium 9.3 mg/dL (8.4-10.2); Carbon Dioxide 24 mmol/L (22-32); Chloride 107 mmol/L (98-107); Estimated Glomerular Filt Rate 37.6 mL/min (>60); Glucose 107 mg/dL (80-110); HEMOLYSIS < 15 (0-50); Potassium 4.4 mmol/L (3.4-5.1); Sodium 138 mmol/L (137-145)
[2020-03-06 15:47] LABS: Thyroid Stimulating Hormone 4.14 uIU/mL (0.47-4.68)
== END ==
PROVIDERS: PCP Family Medicine; Referring Provider Internal Medicine Cardiovascular Disease; Visit Provider Internal Medicine Cardiovascular Disease
DX: I25.118 Atherosclerotic heart disease of native coronary artery with other forms of angina pectoris (principal); I10 Essential (primary) hypertension
CPT/HCPCS: 36415; 80048; 84443

== ENCOUNTER → 2020-03-31 15:18 | Outpatient (CLI) | payer MEDICARE, BC, SELFPAY ==
[2020-03-31] MEDS: COVID-19 VACC #1, MRNA(MOD) 100 MCG/0.5 ML VIAL IM (15:25)
== END ==
PROVIDERS: PCP Family Medicine; Visit Provider Internal Medicine
DX: Z23 Encounter for immunization (principal)
CPT/HCPCS: 0011A; 91301

== ENCOUNTER → 2020-04-04 10:18 | Outpatient (CLI) | payer MEDICARE, BC, SELFPAY ==
--- NOTE | 2020-04-04 10:19 | DI.NM.S_ITS ---
PROCEDURE: NM BONE SCAN WHOLE BODY RADIOPHARMACEUTICAL: 20.3 mCi Tc-99m MDP IV. INDICATIONS: Prostate Cancer TECHNIQUE: Delayed whole-body scintigrams were obtained approximately 3-4 hours after intravenous injection of radiotracer. Anterior and posterior views were acquired from vertex to feet. Additional left and right oblique views of the pelvis were obtained. COMPARISON: [facility], CT, CT CHEST ABD PEL WO CON, 04/04/2020, 10:50. FINDINGS: There is a focal uptake in the posterior aspect of the left 8th rib, suspicious for metastasis. No lesions are identified in skull, sternum, clavicles, scapulae, bony pelvis, and visualized shafts of the long bones. There is low level increased uptake in cervical, thoracic and lumbar spine with distribution indistinguishable from degenerative disc and facet disease; early metastasis to spine could be obscured by degenerative changes. There are foci of increased periarticular activity involving shoulders, sternoclavicular joints, left wrist, hands, hips, SI joints, ankles and feet, compatible with degenerative/arthritic changes. There are bilateral knee arthroplasties. IMPRESSION: 1. There is a focal uptake in the left 8th rib, suspicious for metastasis. 2. Degenerative changes as noted. Dictated by: Lisa Esposito M.D. on 04/04/2020 at 15:28 Approved by: Lisa Esposito M.D. on 04/04/2020 at 17:48
--- NOTE | 2020-04-04 10:19 | DI.CT.S_ITS ---
PROCEDURE: CT CHEST ABD PEL WO CON INDICATIONS: Prostate cancer TECHNIQUE: After the administration of oral contrast, 5 mm thick sections acquired from the lung apices to the symphysis pubis. 5 mm thick coronal and sagittal reformats acquired, with additional 7 mm coronal MIP reformats through the lungs. For radiation dose reduction, the following was used: automated exposure control, adjustment of mA and/or kV according to patient size. COMPARISON: [facility], CT, IVP (ABD & PEL WWO CONTRAST), 09/02/2016, 12:58. FINDINGS: Image quality: Excellent. CHEST: Lungs and pleura: No acute pulmonary opacities. Scattered, bilateral peripheral lung interstitial thickening and scarring. No pleural effusions or pneumothorax. Central and peripheral airways are patent are normal in caliber. Mediastinum: Heart is enlarged. Postsurgical changes compatible prior CABG procedure. Atherosclerotic calcifications noted in the aorta, great vessels in the coronary vasculature.. No pericardial effusion. No mediastinal adenopathy by CT size criteria. Thoracic aorta and central pulmonary arteries are normal in size. Esophagus is normal in caliber. No hiatal hernia. Chest wall: Left chest wall cardiac pacer. No axillary or supraclavicular adenopathy by size criteria. ABDOMEN: Solid organs: Liver is normal in size. Gallbladder is partially contracted, but within normal limits.. Pancreas is normal in contours. Spleen is normal in size. No adrenal nodules. Mild bilateral renal cortical atrophy. No nephrolithiasis or hydronephrosis. Peritoneum and bowel: Small and large bowel loops are normal in caliber and wall thickness. Few scattered colonic diverticula without evidence of diverticulitis. No free fluid or air. Nodes and vessels: No retroperitoneal or mesenteric adenopathy by size criteria. Aorta and inferior vena cava are normal in size. Miscellaneous: No ventral hernias. PELVIS: Genitourinary: Bladder wall thickness is normal. Prostate is enlarged and has increased in size compared to September 02, 2016. Miscellaneous: Prominent left perirectal lymph nodes are noted which do not meet pathologic size criteria, but have increased in size compared to September 02, 2016. Enlarged bilateral internal iliac pelvic lymph nodes are noted with largest right node measuring 1.1 centimeters in short axis in largest left node measuring 1.4 centimeters in short axis. No inguinal adenopathy. Small bilateral fat containing inguinal hernias. Bones: 9 millimeter sclerotic lesion in the L5 vertebral body is stable compared to prior examinations. Small sclerotic lesions with imaging characteristics suggestive of bone islands in the iliac bones are stable compared to prior examination. No vertebral body compression fractures. Spine degenerative disc disease and facet arthropathy. IMPRESSION: 1. Bilateral internal iliac pelvic lymph node enlargement concerning for metastatic lymphadenopathy. Prominent left perirectal lymph nodes do not meet pathologic size criteria, but are suspicious for early metastatic lymphadenopathy. 2. Prostate gland enlargement which has progressed in the interval since prior exam obtained September 02, 2016. 3. Atherosclerosis including the coronary vasculature. 4. Bilateral lung chronic interstitial lung disease. Area 5. Colonic diverticulosis without evidence of diverticulitis. Dictated by: Elaine Pacheco MD, PhD on 04/04/2020 at 13:29 Approved by: Elaine Pacheco MD, PhD on 04/04/2020 at 14:02
== END ==
PROVIDERS: PCP Family Medicine; Referring Provider Specialist; Visit Provider Specialist
DX: C61 Malignant neoplasm of prostate (principal); R59.0 Localized enlarged lymph nodes; J84.9 Interstitial pulmonary disease, unspecified; K57.90 Diverticulosis of intestine, part unspecified, without perforation or abscess without bleeding; I51.7 Cardiomegaly; I25.10 Atherosclerotic heart disease of native coronary artery without angina pectoris; Z95.0 Presence of cardiac pacemaker
CPT/HCPCS: 71250; 74176; 78306; A9503

== ENCOUNTER → 2020-04-27 09:36 | Outpatient (CLI) | payer MEDICARE, BC, SELFPAY ==
[2020-04-27] MEDS: COVID-19 VACC #2, MRNA(MOD) 100 MCG/0.5 ML VIAL IM (09:45)
== END ==
PROVIDERS: PCP Family Medicine; Visit Provider Internal Medicine
DX: Z23 Encounter for immunization (principal)
CPT/HCPCS: 0012A; 91301

== ENCOUNTER → 2020-04-28 09:14 | Outpatient (CLI) | payer MEDICARE, BC, SELFPAY ==
[2020-04-28 09:54] LABS: COVID19 -Nasal RAPID Negative (Negative)
== END ==
PROVIDERS: PCP Family Medicine; Visit Provider Specialist
DX: Z20.822 Contact with and (suspected) exposure to COVID-19 (principal)
CPT/HCPCS: 87635; C9803

== ENCOUNTER 2020-05-01 06:31 | Day surgery (SDC) | payer MEDICARE, BC, SELFPAY ==
[2020-05-01] VITALS (7 sets, daily range): BP systolic 117–154; BP diastolic 62–78; PULSE 60–69; RESP 12–16; TEMP 36.1–37; O2SAT 97–99; BMI 30.2
--- NOTE | 2020-05-01 07:22 | PM.PREOP ---
Pre-operative Note Interval Note History & Physical reviewed/Exam performed by Physician: Yes Changes to H&P: No
[2020-05-01] MEDS: LACTATED RINGERS 1,000 ML 42 ML IV (07:29)
[2020-05-01] MEDS: CEFAZOLIN 2 GM/100 ML FROZ.PIGGY IV (07:45)
--- NOTE | 2020-05-01 08:29 | SUR.OPER ---
Lithotomy on padded OR bed, head on pillow, arms secured on padded arm boards at <90 degrees abduction. Legs secured in padded yellow fins stirrups.
[2020-05-01] MEDS: BUPIVACAINE 0.5% (PF) VIAL 30 ML INJ (08:34)
[2020-05-01] MEDS: BUPIVACAINE LIPOSOME 266 MG/20 ML VIAL INJ (09:11)
[2020-05-01] MEDS: BACITRACIN OINT 0.9 GM PCKT 1 APPLIC TOP (09:31)
--- NOTE | 2020-05-01 09:34 | PM.OP.1 ---
Operative Date/Time/Diagnoses Date of procedure: 05/01/20 Time of procedure: 09:34 Pre-op diagnosis: Metastatic prostate cancer Post-op diagnosis: same Procedure & Clinicians Procedure: 1. Bilateral subcapsular scrotal orchiectomy Same procedure as scheduled: Yes Indications: Metastatic prostate cancer Click Yes if Unassisted: Yes Anesthesia Type: General Operative Notes Findings: 1. Bilateral, left greater than right testicular atrophy. Closure Type: primary Specimen(s): none sent Estimated Blood Loss (mL): 5 Blood products transfused: none Tourniquet time (min): 0 Procedure in detail: Patient was positioned supine and was administered general anesthesia. The lower abdomen genitalia groin and perineum were then prepped and draped in sterile fashion. 0.5% plain Marcaine was then used to infiltrate the midline scrotal raphae skin and subcutaneous tissue. A midline incision was made in the anterior scrotal raphae and using blunt, and cautery dissection the layers of the dartos fascia were divided down to the level of the tunica vaginalis on the right-hand side. The tunica vaginalis was then opened in the testicle and epididymis were delivered from the right hemiscrotum proper pain next, midline anterior incision was made in the tunic albuginea of the testis. The seminiferous tubules lying within were swept away using blunt and cautery technique. Hemostasis was accomplished with electrocautery. Next the tunica albuginea was closed using a running horizontal mattress of 2-0 PDS. The inferior aspect of the closure suture was then tacked to the posterior hemiscrotal wall. Next, the same steps and maneuvers were performed on the left side to complete bilateral subcapsular orchiectomy. The dartos fascia was then closed with a running vertical mattress of 2-0 Monocryl. The skin was then reapproximated using a running horizontal mattress of 4-0 Monocryl. The genitalia were cleaned and dried and antibiotic ointment was applied to the incision line. Fluffs were then applied to the scrotum and perineum and the patient was fitted with net briefs. He was then repositioned supine, awakened, and transferred to a rbrier hill for transport to recovery. Complications: none Post-operative Condition: stable Disposition: PACU Plan for aftercare: Discharge home
--- NOTE | 2020-05-01 11:11 | SUR.PHASEII ---
Pt able to stand and ambulate a few steps by self.
== END 2020-05-01 11:08 | disposition home or self-care (01) ==
PROVIDERS: PCP Family Medicine; Referring Provider Family Medicine; Visit Provider Specialist
PROC: (CPT 54520; principal; 2020-05-01 07:45)
DX: C61 Malignant neoplasm of prostate (principal); C77.5 Secondary and unspecified malignant neoplasm of intrapelvic lymph nodes; C79.51 Secondary malignant neoplasm of bone; Z95.0 Presence of cardiac pacemaker; I50.9 Heart failure, unspecified; I25.10 Atherosclerotic heart disease of native coronary artery without angina pectoris; G30.9 Alzheimer's disease, unspecified; F02.80 Dementia in other diseases classified elsewhere, unspecified severity, without behavioral disturbance, psychotic disturbance, mood disturbance, and anxiety
CPT/HCPCS: 54520; C9290; J0690; J2704

== ENCOUNTER → 2020-06-13 10:32 | Outpatient (CLI) | payer MEDICARE, BC, SELFPAY ==
[2020-06-13 12:31] LABS: Prostate Specific Antigen 1.29 ng/mL (0.10-4.00)
[2020-06-13 12:34] LABS: Testosterone 22.2 ng/dL (71.8-623)
== END ==
PROVIDERS: PCP Family Medicine; Referring Provider Specialist; Visit Provider Specialist
DX: C61 Malignant neoplasm of prostate (principal); N40.0 Benign prostatic hyperplasia without lower urinary tract symptoms; C79.51 Secondary malignant neoplasm of bone
CPT/HCPCS: 36415; 84153; 84403

== ENCOUNTER → 2020-10-02 14:16 | Outpatient (CLI) | payer MEDICARE, BC, SELFPAY ==
[2020-10-02 15:25] LABS: Add Manual Diff / Slide Review NO; Basophils Absolute Auto 100 /uL (0-100); Basophils Percent Auto 1.3 % (0-2); Eosinophils Absolute Auto 400 /uL (0-450); Eosinophils Percent Auto 5.1 % (2-4); Hematocrit 34.8 % (41-53); Hemoglobin 11.8 g/dL (13.5-17.5); Lymphocytes Absolute Auto 2400 /uL (1100-4500); Lymphocytes Percent Auto 29.1 % (25-40); Mean Corpuscular HGB Conc 33.8 % (30-36); Mean Corpuscular Hemoglobin 31.7 PG (26-34); Mean Corpuscular Volume 93.9 fL (80-100); Monocytes Absolute Auto 600 /uL (0-900); Monocytes Percent Auto 7.4 % (3-14); Neutrophils Absolute Auto 4700 /uL (1500-7000); Neutrophils Percent Auto 57.1 % (50-75); Platelet Count 195 X10^3/uL (150-400); Red Blood Cell Count 3.71 X10^6/uL (4.5-5.9); Red Cell Distribution Width 14.5 % (11.6-14.8); White Blood Cell Count 8.3 X10^3/uL (4.5-11.0)
[2020-10-02 15:49] LABS: BUN Creatinine Ratio 21.7 (6-22); Blood Urea Nitrogen 49 mg/dL (9-20); Calcium 9.6 mg/dL (8.4-10.2); Carbon Dioxide 24 mmol/L (22-32); Chloride 105 mmol/L (98-107); Glucose 107 mg/dL (80-110); HEMOLYSIS < 15 (0-50); Potassium 4.4 mmol/L (3.4-5.1); Sodium 138 mmol/L (137-145)
== END ==
PROVIDERS: PCP Family Medicine; Referring Provider Family Medicine; Visit Provider Family Medicine
DX: E78.2 Mixed hyperlipidemia (principal); G60.9 Hereditary and idiopathic neuropathy, unspecified; I10 Essential (primary) hypertension; M79.672 Pain in left foot; N18.2 Chronic kidney disease, stage 2 (mild)
CPT/HCPCS: 36415; 80048; 85025

== ENCOUNTER → 2021-01-01 10:53 | Outpatient (CLI) | payer MEDICARE, BC, SELFPAY ==
[2021-01-01 12:43] LABS: Add Manual Diff / Slide Review NO; Basophils Absolute Auto 100 /uL (0-100); Basophils Percent Auto 1.1 % (0-2); Eosinophils Absolute Auto 300 /uL (0-450); Eosinophils Percent Auto 3.7 % (2-4); Hematocrit 33.8 % (41-53); Hemoglobin 11.5 g/dL (13.5-17.5); Lymphocytes Absolute Auto 2300 /uL (1100-4500); Lymphocytes Percent Auto 25.7 % (25-40); Mean Corpuscular Hemoglobin 31.7 PG (26-34); Mean Corpuscular Volume 93.1 fL (80-100); Monocytes Absolute Auto 600 /uL (0-900); Monocytes Percent Auto 6.9 % (3-14); Neutrophils Absolute Auto 5600 /uL (1500-7000); Neutrophils Percent Auto 62.6 % (50-75); Platelet Count 191 X10^3/uL (150-400); Red Blood Cell Count 3.63 X10^6/uL (4.5-5.9); Red Cell Distribution Width 14.6 % (11.6-14.8)
[2021-01-01 13:47] LABS: Alanine Aminotransferase 18 IU/L (<50); Albumin 4.4 g/dL (3.5-5.0); Albumin Globulin Ratio 1.4 (1.0-2.8); Alkaline Phosphatase 62 U/L (38-126); Aspartate Aminotransferase 26 IU/L (17-59); BUN Creatinine Ratio 22.1 (6-22); Bilirubin Total 0.8 mg/dL (0.2-1.3); Blood Urea Nitrogen 51 mg/dL (9-20); Calcium 9.7 mg/dL (8.4-10.2); Carbon Dioxide 24 mmol/L (22-32); Chloride 104 mmol/L (98-107); Estimated Glomerular Filt Rate 27.3 mL/min (>60); Globulin 3.1 g/dL (1.7-4.1); Glucose 109 mg/dL (80-110); HEMOLYSIS < 15 (0-50); Potassium 4.4 mmol/L (3.4-5.1); Sodium 139 mmol/L (137-145); Total Protein 7.5 g/dL (6.3-8.2)
[2021-01-01 13:50] LABS: Iron 81 ug/dL (49-181)
[2021-01-01 14:19] LABS: Ferritin 668 ng/mL (18-464)
== END ==
PROVIDERS: PCP Family Medicine; Referring Provider Family Medicine; Visit Provider Family Medicine
DX: C61 Malignant neoplasm of prostate (principal); D50.9 Iron deficiency anemia, unspecified; F02.80 Dementia in other diseases classified elsewhere, unspecified severity, without behavioral disturbance, psychotic disturbance, mood disturbance, and anxiety; G30.9 Alzheimer's disease, unspecified; N28.9 Disorder of kidney and ureter, unspecified
CPT/HCPCS: 36415; 80053; 82728; 83540; 85025

== ENCOUNTER → 2021-01-05 11:29 | Outpatient (CLI) | payer MEDICARE, BC, SELFPAY ==
[2021-01-05] MEDS: COVID-19 VACC #3, MRNA(MOD) 50 MCG/0.25 ML VIAL IM (11:40)
== END ==
PROVIDERS: PCP Family Medicine; Visit Provider Internal Medicine
DX: Z23 Encounter for immunization (principal)
CPT/HCPCS: 0013A; 91301

== ENCOUNTER → 2021-01-15 09:27 | Outpatient (CLI) | payer MEDICARE, BC, SELFPAY ==
[2021-01-15 11:18] LABS: Add Manual Diff / Slide Review NO; Basophils Absolute Auto 100 /uL (0-100); Basophils Percent Auto 1.1 % (0-2); Eosinophils Absolute Auto 400 /uL (0-450); Eosinophils Percent Auto 4.2 % (2-4); Hematocrit 33.7 % (41-53); Hemoglobin 11.3 g/dL (13.5-17.5); Lymphocytes Absolute Auto 2000 /uL (1100-4500); Lymphocytes Percent Auto 23.2 % (25-40); Mean Corpuscular HGB Conc 33.4 % (30-36); Mean Corpuscular Hemoglobin 31.1 PG (26-34); Mean Corpuscular Volume 93.2 fL (80-100); Monocytes Absolute Auto 500 /uL (0-900); Monocytes Percent Auto 5.6 % (3-14); Neutrophils Absolute Auto 5600 /uL (1500-7000); Neutrophils Percent Auto 65.9 % (50-75); Platelet Count 227 X10^3/uL (150-400); Red Blood Cell Count 3.62 X10^6/uL (4.5-5.9); Red Cell Distribution Width 14.8 % (11.6-14.8); White Blood Cell Count 8.4 X10^3/uL (4.5-11.0)
[2021-01-15 12:07] LABS: BUN Creatinine Ratio 19.5 (6-22); Blood Urea Nitrogen 46 mg/dL (9-20); Calcium 9.4 mg/dL (8.4-10.2); Carbon Dioxide 22 mmol/L (22-32); Chloride 102 mmol/L (98-107); Estimated Glomerular Filt Rate 26.6 mL/min (>60); Glucose 124 mg/dL (80-110); HEMOLYSIS < 15 (0-50); Magnesium 2.3 mg/dL (1.6-2.3); Phosphorous 3.9 mg/dL (2.3-3.7); Potassium 4.5 mmol/L (3.4-5.1); Sodium 137 mmol/L (137-145); Uric Acid 9.9 mg/dL (3.5-8.5)
[2021-01-15 12:17] LABS: Vitamin D 25 Hydroxy (D3) 43.3 ng/mL (30.0-100.0)
[2021-01-15 12:34] LABS: Prostate Specific Antigen 0.288 ng/mL (0.10-4.00)
[2021-01-16 08:13] LABS: Parathyroid Hormone Int 59 pg/mL (15-65)
== END ==
PROVIDERS: Internal Medicine Nephrology; PCP Family Medicine; Referring Provider Specialist; Visit Provider Specialist
DX: C61 Malignant neoplasm of prostate (principal); N18.32 Chronic kidney disease, stage 3b; N17.9 Acute kidney failure, unspecified; C77.5 Secondary and unspecified malignant neoplasm of intrapelvic lymph nodes; C79.51 Secondary malignant neoplasm of bone
CPT/HCPCS: 36415; 80048; 82306; 83735; 83970; 84100; 84153; 84550; 85025

== ENCOUNTER → 2021-01-16 13:42 | Outpatient (CLI) | payer MEDICARE, BC, SELFPAY ==
[2021-01-16 15:54] LABS: Testosterone 23.7 ng/dL (71.8-623)
== END ==
PROVIDERS: PCP Family Medicine; Referring Provider Specialist; Visit Provider Specialist
DX: C61 Malignant neoplasm of prostate (principal); C77.5 Secondary and unspecified malignant neoplasm of intrapelvic lymph nodes; C79.51 Secondary malignant neoplasm of bone; N40.2 Nodular prostate without lower urinary tract symptoms
CPT/HCPCS: 36415; 84403

== ENCOUNTER → 2021-01-29 09:48 | Outpatient (CLI) | payer MEDICARE, BC, SELFPAY ==
[2021-01-29 11:09] LABS: BUN Creatinine Ratio 20.4 (6-22); Blood Urea Nitrogen 47 mg/dL (9-20); Calcium 9.7 mg/dL (8.4-10.2); Carbon Dioxide 23 mmol/L (22-32); Chloride 104 mmol/L (98-107); Estimated Glomerular Filt Rate 27.4 mL/min (>60); Glucose 129 mg/dL (80-110); HEMOLYSIS < 15 (0-50); Potassium 4.1 mmol/L (3.4-5.1); Sodium 137 mmol/L (137-145)
== END ==
PROVIDERS: PCP Family Medicine; Referring Provider Internal Medicine Nephrology; Visit Provider Internal Medicine Nephrology
DX: N17.9 Acute kidney failure, unspecified (principal)
CPT/HCPCS: 36415; 80048

== ENCOUNTER → 2021-02-12 13:47 | Outpatient (CLI) | payer MEDICARE, BC, SELFPAY ==
[2021-02-12 15:21] LABS: Blood Urea Nitrogen 47 mg/dL (9-20); Calcium 9.5 mg/dL (8.4-10.2); Carbon Dioxide 26 mmol/L (22-32); Chloride 99 mmol/L (98-107); Estimated Glomerular Filt Rate 25.2 mL/min (>60); Glucose 115 mg/dL (80-110); HEMOLYSIS < 15 (0-50); Sodium 136 mmol/L (137-145)
== END ==
PROVIDERS: PCP Family Medicine; Referring Provider Internal Medicine Nephrology; Visit Provider Internal Medicine Nephrology
DX: N17.9 Acute kidney failure, unspecified (principal)
CPT/HCPCS: 36415; 80048

== ENCOUNTER 2021-02-28 12:02 | Emergency (ER) | payer MEDICARE, BC, SELFPAY ==
[2021-02-28] VITALS (20 sets, daily range): BP systolic 95–141; BP diastolic 55–67; PULSE 59–79; RESP 16–28; TEMP 36; O2SAT 95–100; BMI 32.3
[2021-02-28 13:30] LABS: Add Manual Diff / Slide Review NO; Basophils Absolute Auto 100 /uL (0-100); Eosinophils Absolute Auto 200 /uL (0-450); Eosinophils Percent Auto 3.3 % (2-4); Hemoglobin 11.5 g/dL (13.5-17.5); Lymphocytes Absolute Auto 1500 /uL (1100-4500); Lymphocytes Percent Auto 20.7 % (25-40); Mean Corpuscular HGB Conc 33.7 % (30-36); Mean Corpuscular Hemoglobin 31.5 PG (26-34); Mean Corpuscular Volume 93.3 fL (80-100); Monocytes Absolute Auto 500 /uL (0-900); Neutrophils Absolute Auto 4800 /uL (1500-7000); Platelet Count 189 X10^3/uL (150-400); Red Blood Cell Count 3.65 X10^6/uL (4.5-5.9); Red Cell Distribution Width 14.4 % (11.6-14.8); White Blood Cell Count 7.1 X10^3/uL (4.5-11.0)
--- NOTE | 2021-02-28 13:35 | ED.WEAKNESS ---
HPI - Weakness General Chief complaint: Abdominal Pain Stated complaint: Shaky on his feet, stomach hurts, blood pressure h Time Seen by Provider: 02/28/21 13:19 Source: patient Mode of arrival: Ambulatory History of Present Illness HPI Narrative: 82-year-old male with Alzheimer's as and hyperlipidemia presents with family in the chief complaint of being a bit off today. He went to bed in his normal state of health and would normally awake and had about 6:00 a.m. but today wanted to sleep until about 830. He is not complaining of anything significant. He has had no chest pain or shortness of breath. He has had no fever or chills. He has had no nausea or vomiting but had a brief episode of abdominal pain much earlier than that day which has resolved. He has had no trouble with bowel movements or urinating. is concerned because earlier today when ambulating he became a bit shaky when moving from point a to point B. This resolved after he was moving. He has had no change in his diet. He has had no change in medications and is otherwise at his baseline Related Data Home Medications Medication Instructions Recorded Confirmed magnesium oxide 400 mg (241.3 mg 400 mg PO Q DAY #0 12/25/15 01/01/21 magnesium) tablet multivitamin (Multiple Vitamins) 1 tab PO Q DAY #0 12/25/15 01/01/21 aspirin 81 mg tablet,delayed 81 mg PO BID tab 06/02/19 01/01/21 release calcium carb 300 mg-D3 800 1 tab PO DAILY 05/01/20 01/01/21 unit-mag ox 25 mg-mass spectroscopist 0.5 mg-ney-Zn tablet (Caltrate + D3 Plus Minerals) ferrous sulfate 325 mg (65 mg 325 mg PO BID cap 01/01/21 01/01/21 iron) capsule,extended release Previous Rx's Medication Instructions Recorded Disabled Parking #1 each 08/05/19 spironolactone 25 1 tab PO QDAY #90 tab 05/17/20 mg-hydrochlorothiazide 25 mg tablet (Aldactazide) atorvastatin 40 mg tablet 40 mg PO BEDTIME #90 tab 07/03/20 donepezil 10 mg tablet 10 mg PO BEDTIME #90 tab 11/06/20 pantoprazole 40 mg tablet,delayed 40 mg PO BID #180 tab 02/01/21 release gabapentin 600 mg tablet See Rx Instructions .ROUTE 02/20/21 .COMPLEX #90 tab Allergies Allergy/AdvReac Type Severity Reaction Status Date / Time diphenhydramine Allergy Mild DISORIENTATION Verified 01/23/21 09:22 [From BENADRYL] AND CONFUSION oxycodone [OXYCODONE] Allergy Mild Unknown Verified 01/23/21 09:22 Review of Systems Review of Systems Narrative: GENERAL: See HP HEENT: Denies sinus pain, ear pain, sore throat, difficulty swallowing, dizziness. RESPIRATORY: Denies dyspnea, cough, wheezing, hemoptysis, sputum. CARDIOVASCULAR: Denies chest pain, palpitations, orthopnea, edema, GASTROINTESTINAL: Denies nausea, vomiting, abdominal pain, diarrhea, constipation, melena. : Denies dysuria, frequency, incontinence, hematuria, urinary retention. MUSCULOSKELETAL: denies weakness, joint pain, or bony pain SKIN: Denies rash, skin lesions, or other NEUROLOGIC: Denies weakness, headache, numbness, change in speech, confusion, seizures, incoordination. PSYCHIATRIC: No concerning psychosocial issues. 12 point review of systems is negative except for those stated above Patient History Medical History Adenocarcinoma of prostate Alzheimer's dementia (~01/2018) Anemia Arthritis Basal cell carcinoma Chronic renal failure, stage 2 (mild) Coronary artery disease involving [place] coronary artery of [place] heart without angina pectoris (12/01/14) Coronary heart disease Elevated prostate specific antigen (PSA) (06/18/16) Essential hypertension (12/01/14) Family history of prostate cancer in father Heart attack History of basal cell cancer History of deep venous thrombosis in adulthood (07/16/16) History of permanent cardiac pacemaker placement (06/18/16) Hypercholesterolemia 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/17/16) Kidney disease Mixed hyperlipidemia (12/01/14) Neurological disease Neuropathy Nodular prostate Pacemaker Peripheral polyneuropathy (02/20/17) Peripheral vascular disease Plantar wart Presence of stent in anterior descending branch of left coronary artery (12/01/14) 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 Spinal stenosis of lumbar region (01/29/11) Systolic heart failure Tinea pedis Surgical History H/O circumcision H/O cystoscopy H/O hernia repair H/O vasectomy History of carpal tunnel repair History of coronary artery stent placement History of knee replacement History of left knee replacement (2009) History of right knee joint replacement (2008) History of umbilical hernia repair 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) Status post laminectomy Family History Brother Coronary atherosclerosis Cancer Father Prostate cancer Coronary artery disease Grandfather Cancer Social History marital status: number of children: 4 household members: spouse lives independently: Yes caregiver/support person: No housing: house pets and animals: Yes education level: other occupational status: other Previous occupational history: [employer] In [employer] (acquired by [employer]) leida/catholic: [employer] leisure activities: other Smoking Status: Never smoker Tobacco: How many years used: 0 quit status: quit date established second hand exposure: No alcohol intake: former substance use type: does not use caffeine: Yes Smoking Status: Never smoker alcohol intake frequency: 0-2 drinks per day Substance Use Type: does not use Exam Narrative Exam Narrative: GENERAL: [81 year old patient appears stated age. Well-developed patient, in mild distress. Pleasantly confused, slightly hard of hearing HEAD: Atraumatic. Normocephalic. EYES: Pupils equal round and reactive. Extraocular motions intact. No scleral icterus. No injection or drainage. ENT: Nose without bleeding, purulent drainage. Throat without erythema, tonsillar hypertrophy or exudate. Airway patent. NECK: Trachea midline. Non tender CARDIOVASCULAR: Regular rate and rhythm without murmurs, gallops, or rubs. RESPIRATORY: Clear to auscultation. Breath sounds equal bilaterally. No wheezes, rales, or rhonchi. GASTROINTESTINAL: Abdomen soft, non-tender, nondistended. EXTREMITIES: No edema or joint tenderness. BACK: Nontender without deformity or crepitance. No flank tenderness. NEURO: Cranial nerves 2-12 grossly intact SKIN: No rash or erythema of visible areas Initial Vital Signs Initial Vital Signs: Vital Signs Temperature 96.8 F L 02/28/21 12:27 Pulse Rate 60 02/28/21 12:27 Respiratory Rate 18 02/28/21 12:27 Blood Pressure 135/60 02/28/21 12:27 Pulse Oximetry 98 02/28/21 12:27 Course Orders Ordered: Discontinued Medications Sodium Chloride (Normal Saline 0.9%) 1,000 mls @ 1,000 mls/hr IV BOLUS ONE Stop: 02/28/21 16:37 Last Infusion: 02/28/21 17:48 Dose: 0 mls/hr Documented by: Admin: 02/28/21 15:50 Dose: 1,000 mls/hr Documented by: SHERWIN Vital Signs Vital signs: Vital Signs - 8 hr 02/28/21 12:27 02/28/21 13:10 02/28/21 13:30 Temperature 96.8 F L Pulse Rate 60 60 59 L Pulse Rate [Orthostatic Lying] Pulse Rate [Orthostatic Sitting] Pulse Rate [Orthostatic Standing] Respiratory Rate 18 23 19 Blood Pressure 135/60 97/58 L Blood Pressure [Orthostatic Lying] Blood Pressure [Orthostatic Sitting] Blood Pressure [Orthostatic Standing] Pulse Oximetry 98 98 98 02/28/21 14:00 02/28/21 14:31 02/28/21 15:00 Temperature Pulse Rate 60 69 60 Pulse Rate [Orthostatic Lying] Pulse Rate [Orthostatic Sitting] Pulse Rate [Orthostatic Standing] Respiratory Rate 22 Blood Pressure 95/58 L Blood Pressure [Orthostatic Lying] Blood Pressure [Orthostatic Sitting] Blood Pressure [Orthostatic Standing] Pulse Oximetry 97 96 02/28/21 15:28 02/28/21 15:30 02/28/21 15:31 Temperature Pulse Rate 60 73 77 Pulse Rate [Orthostatic Lying] Pulse Rate [Orthostatic Sitting] Pulse Rate [Orthostatic Standing] Respiratory Rate 17 23 16 Blood Pressure 123/57 L 105/56 L 98/57 L Blood Pressure [Orthostatic Lying] Blood Pressure [Orthostatic Sitting] Blood Pressure [Orthostatic Standing] Pulse Oximetry 98 98 97 02/28/21 15:35 02/28/21 15:46 02/28/21 16:00 Temperature Pulse Rate 65 60 Pulse Rate [Orthostatic Lying] 60 Pulse Rate [Orthostatic Sitting] 63 Pulse Rate [Orthostatic Standing] 79 Respiratory Rate 17 Blood Pressure 122/67 Blood Pressure [Orthostatic Lying] 123/57 L Blood Pressure [Orthostatic Sitting] 105/56 L Blood Pressure [Orthostatic Standing] 98/57 L Pulse Oximetry 95 99 02/28/21 16:30 02/28/21 17:00 02/28/21 17:08 Temperature Pulse Rate 61 60 60 Pulse Rate [Orthostatic Lying] Pulse Rate [Orthostatic Sitting] Pulse Rate [Orthostatic Standing] Respiratory Rate 18 17 16 Blood Pressure 131/62 Blood Pressure [Orthostatic Lying] Blood Pressure [Orthostatic Sitting] Blood Pressure [Orthostatic Standing] Pulse Oximetry 99 99 02/28/21 17:20 02/28/21 17:22 02/28/21 17:23 Temperature Pulse Rate 61 72 73 Pulse Rate [Orthostatic Lying] Pulse Rate [Orthostatic Sitting] Pulse Rate [Orthostatic Standing] Respiratory Rate 19 22 28 H Blood Pressure 141/62 H 115/58 L 97/55 L Blood Pressure [Orthostatic Lying] Blood Pressure [Orthostatic Sitting] Blood Pressure [Orthostatic Standing] Pulse Oximetry 100 02/28/21 17:32 Temperature Pulse Rate Pulse Rate [Orthostatic Lying] 61 Pulse Rate [Orthostatic Sitting] 61 Pulse Rate [Orthostatic Standing] 72 Respiratory Rate Blood Pressure Blood Pressure [Orthostatic Lying] 141/62 H Blood Pressure [Orthostatic Sitting] 115/58 L Blood Pressure [Orthostatic Standing] 97/55 L Pulse Oximetry MDM - Weakness Lab Data Result diagrams: 02/28/21 13:15 02/28/21 13:15 Labs: Lab Results 02/28/21 02/28/21 02/28/21 Range/Units 13:15 13:15 13:15 WBC 7.1 (4.5-11.0) X10^3/uL RBC 3.65 L (4.5-5.9) X10^6/uL Hgb 11.5 L (13.5-17.5) g/dL Hct 34.0 L (41-53) % MCV 93.3 (80-100) fL MCH 31.5 (26-34) PG MCHC 33.7 (30-36) % RDW 14.4 (11.6-14.8) % Plt Count 189 (150-400) X10^3/uL Neut % (Auto) 68.0 (50-75) % Lymph % (Auto) 20.7 L (25-40) % [place] % (Auto) 7.0 (3-14) % Eos % (Auto) 3.3 (2-4) % Baso % (Auto) 1.0 (0-2) % Neut # (Auto) 4800 (1958-9553) /uL Lymph # (Auto) 1500 (3980-1216) /uL [place] # (Auto) 500 (0-900) /uL Eos # (Auto) 200 (0-450) /uL Baso # (Auto) 100 (0-100) /uL Sodium 139 (137-145) mmol/L Potassium 4.1 (3.4-5.1) mmol/L Chloride 104 (98-107) mmol/L Carbon Dioxide 25 (22-32) mmol/L BUN 52 H (9-20) mg/dL Creatinine 2.61 H (0.66-1.25) mg/dL Estimated GFR 23.6 L (>60) mL/min BUN/Creatinine Ratio 19.9 (6-22) Glucose 102 (80-110) mg/dL Calcium 9.5 (8.4-10.2) mg/dL Total Bilirubin 0.8 (0.2-1.3) mg/dL AST 28 (17-59) IU/L ALT 16 (<50) IU/L Alkaline Phosphatase 54 (38-126) U/L Total Creatine Kinase 74 (55-170) U/L CK-MB (CK-2) TNP CK-MB (CK-2) Rel Index TNP Troponin I 0.044 H (0.01-0.034) ng/mL NT-Pro-B Natriuret Pep 586 H (<450) pg/mL Total Protein 7.5 (6.3-8.2) g/dL Albumin 4.3 (3.5-5.0) g/dL Globulin 3.2 (1.7-4.1) g/dL Albumin/Globulin Ratio 1.3 (1.0-2.8) Lipase 30 (23-300) U/L SARS-CoV-2 (PCR) (Negative) 02/28/21 02/28/21 Range/Units 14:45 17:43 WBC (4.5-11.0) X10^3/uL RBC (4.5-5.9) X10^6/uL Hgb (13.5-17.5) g/dL Hct (41-53) % MCV (80-100) fL MCH (26-34) PG MCHC (30-36) % RDW (11.6-14.8) % Plt Count (150-400) X10^3/uL Neut % (Auto) (50-75) % Lymph % (Auto) (25-40) % [place] % (Auto) (3-14) % Eos % (Auto) (2-4) % Baso % (Auto) (0-2) % Neut # (Auto) (8462-6945) /uL Lymph # (Auto) (8897-6060) /uL [place] # (Auto) (0-900) /uL Eos # (Auto) (0-450) /uL Baso # (Auto) (0-100) /uL Sodium (137-145) mmol/L Potassium (3.4-5.1) mmol/L Chloride (98-107) mmol/L Carbon Dioxide (22-32) mmol/L BUN (9-20) mg/dL Creatinine (0.66-1.25) mg/dL Estimated GFR (>60) mL/min BUN/Creatinine Ratio (6-22) Glucose (80-110) mg/dL Calcium (8.4-10.2) mg/dL Total Bilirubin (0.2-1.3) mg/dL AST (17-59) IU/L ALT (<50) IU/L Alkaline Phosphatase (38-126) U/L Total Creatine Kinase (55-170) U/L CK-MB (CK-2) CK-MB (CK-2) Rel Index Troponin I 0.048 H (0.01-0.034) ng/mL NT-Pro-B Natriuret Pep (<450) pg/mL Total Protein (6.3-8.2) g/dL Albumin (3.5-5.0) g/dL Globulin (1.7-4.1) g/dL Albumin/Globulin Ratio (1.0-2.8) Lipase (23-300) U/L SARS-CoV-2 (PCR) Negative (Negative) Urine Dip Bedside Urine Glucose Negative Bedside Urine Bilirubin - Negative Bedside Urine Ketone - Negative Urine Specific [place] 1.020 Bedside Urine Occult Blood - Negative Bedside Urine pH 6.0 Bedside Urine Protein - Negative Bedside Urine Urobilinogen - Negative Bedside Urine Nitrite - Negative Bedside Urine Leukocytes - Negative Esterase MDM Narrative Medical decision making narrative: Patient's labs are at baseline, no significant findings on physical exam. Repeat troponin is unchanged, EKG nonischemic. Patient ambulating through the department without difficulty after fluids. Return precautions discussed and questions answered to their apparent satisfaction. Discharge Plan Departure Patient Disposition: Home Clinical Impression: Acute dehydration Instructions: DI for Dehydration -- Adult Activity Restrictions/Additional Instructions: *You have been diagnosed with mild dehydration and otherwise your history, exam, labs and imaging are very reassuring ] *What to do: *Please continue to take your regular medications as directed. [ ] New medication prescriptions sent to your pharmacy: [ ] [ ] New medication written as a paper prescription [x ] No new medications given *Please follow up with your primary care provider in 2-3 days, call for an appointment. Let them know you were seen in the Emergency Department and that we ask that you be seen in follow up. We will electronically transmit a record of today's note if your PCP is in our system *If you do not have a primary care provider please contact the [facility] Resource line at [phone]. They will ask some questions about your medical history and help get you set up with a doctor in the community. *Return to Emergency Department if you should have any new, worsening or concerning symptoms, such as [fever greater than 101 F, shaking chills, worsening pain, persistent vomiting or other bothersome symptoms] Prescriptions: No Action multivitamin [Multiple Vitamins] Tablet 1 tab PO Q DAY Qty: 0 0RF magnesium oxide 400 MG tablet 400 mg PO Q DAY Qty: 0 0RF (DME) Disabled Parking Qty: 1 0RF Rx Instructions: Patient qualifies for disabled parking as per the attached form. spironolacton-hydrochlorothiaz [Aldactazide] 25-25 mg tablet 1 tab PO QDAY Qty: 90 1RF donepezil 10 mg tablet 10 mg PO BEDTIME Qty: 90 1RF pantoprazole 40 mg tablet,delayed release (DR/EC) 40 mg PO BID Qty: 180 1RF gabapentin 600 mg tablet See Rx Instructions .ROUTE .COMPLEX Qty: 90 2RF Dose Instruction: TAKE ONE TABLET BY MOUTH ONE TIME DAILY AT BEDTIME Rx Instructions: TAKE ONE TABLET BY MOUTH ONE TIME DAILY AT BEDTIME aspirin 81 mg tablet,delayed release (DR/EC) 81 mg PO BID 0RF ferrous sulfate 325 mg (65 mg iron) capsule, extended release 325 mg PO BID 0RF atorvastatin 40 mg tablet 40 mg PO BEDTIME Qty: 90 3RF Caltrate + D3 Plus Minerals 300 mg-800 unit -25 mg-0.5 mg Tablet 1 tab PO DAILY 0RF Referrals: Bradley Guerra PA-C [Non-Staff] - Max Garner DO [Primary Care Provider] - Cayden Suero MD [Physician] -
[2021-02-28 13:46] LABS: Alanine Aminotransferase 16 IU/L (<50); Albumin 4.3 g/dL (3.5-5.0); Albumin Globulin Ratio 1.3 (1.0-2.8); Alkaline Phosphatase 54 U/L (38-126); Aspartate Aminotransferase 28 IU/L (17-59); BUN Creatinine Ratio 19.9 (6-22); Bilirubin Total 0.8 mg/dL (0.2-1.3); Blood Urea Nitrogen 52 mg/dL (9-20); Calcium 9.5 mg/dL (8.4-10.2); Carbon Dioxide 25 mmol/L (22-32); Chloride 104 mmol/L (98-107); Estimated Glomerular Filt Rate 23.6 mL/min (>60); Globulin 3.2 g/dL (1.7-4.1); Glucose 102 mg/dL (80-110); HEMOLYSIS < 15 (0-50); Lipase 30 U/L (23-300); Potassium 4.1 mmol/L (3.4-5.1); Sodium 139 mmol/L (137-145); Total Protein 7.5 g/dL (6.3-8.2)
--- NOTE | 2021-02-28 14:12 | DI.RAD.S_ITS ---
PROCEDURE: XR ACUTE ABDOMEN SERIES INDICATIONS: fatigue, abdominal pain TECHNIQUE: One view chest and two views of the abdomen were acquired. COMPARISON: None. FINDINGS: Dual-chamber left-sided pacemaker present. Midline sternal wires noted. Heart size enlarged, there is moderate vascular congestion. Elevation left hemidiaphragm with bibasilar atelectasis and or infiltrate. Minimal blunting the right costophrenic angle present. Underlying chronic interstitial changes seen. Osseous structures otherwise unremarkable. Supine and upright views of the abdomen show mild gaseous distension of the colon which could reflect an ileus or enteritis. No line degenerative disc disease and arthropathy noted. No lytic or blastic lesion. IMPRESSION: Cardiomegaly, moderate vascular congestion and elevated left hemidiaphragm, accentuated by low lung volumes Gaseous distension of the colon could reflect ileus or enteritis. Approved by: Pablo Sahni M.D. on 02/28/2021 at 14:13
[2021-02-28 15:06] LABS: COVID19 -Nasal RAPID Negative (Negative)
--- NOTE | 2021-02-28 15:47 | PC.NURSE ---
Attempted to ambulate, was dizzy within the first few steps. Assisted back to bed. PORTIA Franco and Dr. Wagoner notified
[2021-02-28] MEDS: SODIUM CHLORIDE 0.9% 1,000 ML 1000 ML IV (15:50)
[2021-02-28 16:52] LABS: Creatine Kinase 74 U/L (55-170)
[2021-02-28 17:05] LABS: NT-proBNP (BNP-Adult 18+) 586 pg/mL (<450); Troponin I 0.044 ng/mL (0.01-0.034)
--- NOTE | 2021-02-28 17:35 | PC.NURSE ---
Patient reports no dizziness and walked 20 ft without any unsteady gait. Family member reports he is at baseline. She states it is not abnormal for his BP to be 98 systolic while sitting at home.
[2021-02-28 18:09] LABS: Troponin I 0.048 ng/mL (0.01-0.034)
== END 2021-02-28 18:38 | disposition home or self-care (01) ==
PROVIDERS: Emergency Provider Emergency Medicine; PCP Family Medicine
DX: E86.0 Dehydration (principal); I10 Essential (primary) hypertension; Z20.822 Contact with and (suspected) exposure to COVID-19
CPT/HCPCS: 36415; 74022; 80053; 81003; 82550; 83690; 83880; 84484; 85025; 87635; 93005; 93010; 96360; 96361; 99284; C9803

== ENCOUNTER → 2021-03-13 13:40 | Outpatient (CLI) | payer MEDICARE, BC, SELFPAY ==
--- NOTE | 2021-03-13 | DI.ECHO.S_ITS ---
[facility] +---------+ : : [address] [place] : : : : [id number] : : : : Phone: [phone] Echocardiogram Report + + :Name: CLEVE DIOP Study Date: 03/13/2021 Height: 74 in : :[facility] ReadingLocation: Weight: 472 lb : : Gender: Male BSA: 3.1 m2 : :: 1940 Age: 81 yrs BP: 113/69 mmHg: :Reason For Study: ATHEROSCLEROTIC HEART DISEASE : :Ordering Physician: EDUARD, : :JOSE M Performed By: Melissa Mcfarland : :Referring: JOSE M CHAPA : + + Interpretation Summary The left ventricle is normal in size. The ejection fraction is estimated to be 50-55%. No significant change in LVEF from the previous study. The right ventricle is grossly normal size. Right ventricular systolic function is moderately reduced. This is unchanged compared to the previous study. There is mild aortic regurgitation. Compared to the prior echo study, there has been no change in the severity of aortic regurgitation. There is mild tricuspid regurgitation. Compared to the prior echo exam, there has been no change in TR severity. Right ventricular systolic pressure is estimated to be 26 mmHg plus the clinically estimated CVP which cannot be estimated on this exam. There is mild to moderate pulmonic regurgitation. The ascending aorta is mildly enlarged. This is unchanged compared to the previous study. There is aortic root sclerosis/calcification. Procedure: A two-dimensional transthoracic echocardiogram with color flow and Doppler was performed. The study quality was technically adequate. Comparison is made with the echocardiogram of 02/23/2020. The patient was in sinus rhythm with heart rates between 60-64 bpm during the exam. The patient had a bundle branch block rhythm during the exam. Left Ventricle: The left ventricle is normal in size. Left ventricular wall thickness is mildly increased. There is no thrombus. The ejection fraction is estimated to be 50-55%. There is inferior wall hypokinesis. There is a mild dyssynchronous contraction pattern, consistent with a conduction abnormality. Septal motion is consistent with conduction abnormality. No significant change from the previous study. Diastolic parameters suggest a relaxation abnormality of the left ventricle, consistent with probable normal filling pressures. Right Ventricle: The right ventricle is grossly normal size. Right ventricular systolic function is moderately reduced. This is unchanged compared to the previous study. Atria: The left atrial size is normal. Both atria have remained unchanged in size since the prior echo exam. Right atrial size is normal. There is no Doppler evidence for an interatrial shunt. Mitral Valve: The mitral valve leaflets appear mildly thickened, but open well. There is mild mitral annular calcification. There is trace mitral regurgitation. Aortic Valve: The aortic valve is trileaflet. The aortic valve is mildly calcified. There is mild aortic valve sclerosis. There is no aortic valve stenosis. There is mild aortic regurgitation. Compared to the prior echo study, there has been no change in the severity of aortic regurgitation. Tricuspid Valve: The tricuspid valve is normal. There is mild tricuspid regurgitation. Right ventricular systolic pressure is estimated to be 26 mmHg plus the clinically estimated CVP which cannot be estimated on this exam. Compared to the prior echo exam, there has been no change in TR severity. Pulmonic Valve: The pulmonic valve leaflets are thin and pliable; valve motion is normal. There is mild to moderate pulmonic regurgitation. Great Vessels: The aortic root is normal size. There is aortic root sclerosis/calcification. The ascending aorta is mildly enlarged. This is unchanged compared to the previous study. The inferior vena cava was not well visualized. Pericardium/ Pleura There is no pericardial effusion. There is no pleural effusion. MMode/2D Measurements & Calculations LVIDd: 5.6 cm LVOT diam: 2.4 cm LVIDs: 4.0 cm Ao root diam: 3.6 cm FS: 29.0 % asc Aorta Diam: 3.7 cm IVSd: 1.1 cm Ao Arch Diam (Prox Trans): 2.9 cm LVPWd: 1.2 cm LV kitchen. diameter/BSA (cm/m^2): 1.8 LV sys. diameter/BSA (cm/m^2): 1.3 LA A2 area: 25.9 cm2 RA long axis: 5.7 cm LA A4 area: 22.9 cm2 RA area: 17.2 cm2 LA length (vol): 6.2 cm RA vol: 44.4 ml LA vol: 81.9 ml RA : 14.2 ml/m2 LA vol index: 26.2 ml/m2 RVD1 (basal): 3.7 cm TAPSE: 1.1 cm Doppler Measurements & Calculations Ao V2 max: 168.2 cm/sec LVOT Max [place]: 70.8 cm/sec Ao V2 mean: 119.2 cm/sec LV V1 max P.0 mmHg Ao max P.3 mmHg LV V1 VTI: 14.5 cm Ao mean P.4 mmHg AIDEN(I,D): 1.9 cm2 Ao V2 VTI: 34.0 cm AIDEN(V,D): 1.8 cm2 sev ratio: 0.43 AIDEN indexed to BSA (cm^2/m^2): 0.59 MV E max [place]: 42.3 cm/sec TR max [place]: 252.4 cm/sec MV A max [place]: 86.7 cm/sec TR max P.5 mmHg MV E/A: 0.49 PA V2 max: 118.5 cm/sec Med Peak E' [place]: 4.1 cm/sec PA V2 mean: 76.9 cm/sec E/E' med: 10.4 PA mean P.7 mmHg Lat Peak E' [place]: 6.6 cm/sec PA pr(Accel): 51.6 mmHg E/E' lat: 6.4 E/e' average: 8.4 MV dec time: 0.55 sec SV(LVOT): 63.1 ml Reading Physician:05:34 PM
== END ==
PROVIDERS: PCP Family Medicine; Referring Provider Nurse Practitioner Family; Visit Provider Nurse Practitioner Family
DX: R06.02 Shortness of breath (principal); Z95.1 Presence of aortocoronary bypass graft; I25.118 Atherosclerotic heart disease of native coronary artery with other forms of angina pectoris; I35.1 Nonrheumatic aortic (valve) insufficiency; I07.1 Rheumatic tricuspid insufficiency; I70.0 Atherosclerosis of aorta
CPT/HCPCS: 93306

== ENCOUNTER → 2021-04-04 13:32 | Outpatient (CLI) | payer MEDICARE, BC, SELFPAY ==
[2021-04-04 15:18] LABS: BUN Creatinine Ratio 16.6 (6-22); Blood Urea Nitrogen 44 mg/dL (9-20); Calcium 9.5 mg/dL (8.4-10.2); Carbon Dioxide 26 mmol/L (22-32); Chloride 100 mmol/L (98-107); Estimated Glomerular Filt Rate 23.2 mL/min (>60); Glucose 120 mg/dL (80-110); HEMOLYSIS < 15 (0-50); Magnesium 2.5 mg/dL (1.6-2.3); Phosphorous 3.9 mg/dL (2.3-3.7); Potassium 4.4 mmol/L (3.4-5.1); Sodium 136 mmol/L (137-145); Uric Acid 9.4 mg/dL (3.5-8.5)
== END ==
PROVIDERS: PCP Family Medicine; Referring Provider Internal Medicine Nephrology; Visit Provider Internal Medicine Nephrology
DX: N18.4 Chronic kidney disease, stage 4 (severe) (principal)
CPT/HCPCS: 36415; 80048; 83735; 84100; 84550

== ENCOUNTER → 2021-04-25 15:30 | Outpatient (CLI) | payer MEDICARE, BC, SELFPAY ==
[2021-04-25 16:46] LABS: BUN Creatinine Ratio 16.5 (6-22); Blood Urea Nitrogen 35 mg/dL (9-20); Calcium 9.2 mg/dL (8.4-10.2); Carbon Dioxide 24 mmol/L (22-32); Chloride 107 mmol/L (98-107); Estimated Glomerular Filt Rate 30.1 mL/min (>60); Glucose 110 mg/dL (80-110); HEMOLYSIS < 15 (0-50); Potassium 4.3 mmol/L (3.4-5.1); Sodium 140 mmol/L (137-145); Uric Acid 8.3 mg/dL (3.5-8.5)
== END ==
PROVIDERS: PCP Family Medicine; Referring Provider Internal Medicine Nephrology; Visit Provider Internal Medicine Nephrology
DX: N17.9 Acute kidney failure, unspecified (principal); E79.0 Hyperuricemia without signs of inflammatory arthritis and tophaceous disease
CPT/HCPCS: 36415; 80048; 84550

== ENCOUNTER → 2021-05-18 10:37 | Outpatient (CLI) | payer MEDICARE, BC, SELFPAY ==
[2021-05-18 12:22] LABS: BUN Creatinine Ratio 17.9 (6-22); Blood Urea Nitrogen 37 mg/dL (9-20); Calcium 9.3 mg/dL (8.4-10.2); Carbon Dioxide 24 mmol/L (22-32); Chloride 104 mmol/L (98-107); Estimated Glomerular Filt Rate 30.9 mL/min (>60); Glucose 89 mg/dL (80-110); HEMOLYSIS < 15 (0-50); Potassium 4.5 mmol/L (3.4-5.1); Sodium 139 mmol/L (137-145)
== END ==
PROVIDERS: PCP Family Medicine; Referring Provider Internal Medicine Nephrology; Visit Provider Internal Medicine Nephrology
DX: N17.9 Acute kidney failure, unspecified (principal)
CPT/HCPCS: 36415; 80048

== ENCOUNTER → 2021-06-13 08:53 | Outpatient (CLI) | payer MEDICARE, BC, SELFPAY ==
[2021-06-13 10:16] LABS: COVID19 -Nasal RAPID Negative (Negative)
== END ==
PROVIDERS: PCP Family Medicine; Referring Provider Internal Medicine; Visit Provider Internal Medicine
DX: Z20.822 Contact with and (suspected) exposure to COVID-19 (principal)
CPT/HCPCS: 87635; C9803

== ENCOUNTER → 2021-06-18 10:50 | Outpatient (CLI) | payer MEDICARE, BC, SELFPAY ==
--- NOTE | 2021-06-18 10:52 | DI.RAD.S_ITS ---
PROCEDURE: XR TOE LT MIN 2V INDICATIONS: L 2nd toe bruising TECHNIQUE: 3 views of the 2nd toe(s) acquired. COMPARISON: None. FINDINGS: Bones: No gross acute fractures or dislocations. Osteoarthritic changes are seen throughout 2nd toe with subcortical cystic areas/erosion involving lateral aspect of 2nd DIP joint. No suspicious bony lesions. Soft tissues: No suspicious soft tissue densities. Soft tissue swelling surrounding distal 2nd toe is seen. IMPRESSION: No acute left 2nd toe fracture or dislocation. Osteoarthritic changes throughout midfoot and forefoot joints. Subcortical cystic area versus erosion involving 2nd DIP joint which could represent changes related to inflammatory arthropathy. 2nd toe soft tissue swelling. Dictated by: Ministerio Hong M.D. on 06/18/2021 at 12:38 Approved by: Ministerio Hong M.D. on 06/18/2021 at 12:40
== END ==
PROVIDERS: PCP Family Medicine; Referring Provider Physician Assistant; Visit Provider Physician Assistant
DX: S90.129A Contusion of unspecified lesser toe(s) without damage to nail, initial encounter (principal); X58.XXXA Exposure to other specified factors, initial encounter
CPT/HCPCS: 73660

== ENCOUNTER → 2021-07-19 14:19 | Outpatient (CLI) | payer MEDICARE, BC, SELFPAY ==
[2021-07-19 15:50] LABS: Bacteria Urine None Seen; Culture Indicated Urine Cult Not Indicated; RBC Urine 0-1/HPF (0-5/HPF); Squamous Epithelial Cell Urine 0-1 /HPF (0-5/HPF); WBC Urine None Seen (0-5/HPF)
[2021-07-19 15:55] LABS: BUN Creatinine Ratio 20.8 (6-22); Blood Urea Nitrogen 46 mg/dL (9-20); Carbon Dioxide 24 mmol/L (22-32); Chloride 102 mmol/L (98-107); Estimated Glomerular Filt Rate 29 mL/min (>60); Glucose 120 mg/dL (80-110); HEMOLYSIS < 15 (0-50); Magnesium 2.3 mg/dL (1.6-2.3); Phosphorous 4.3 mg/dL (2.3-3.7); Potassium 4.3 mmol/L (3.4-5.1); Sodium 137 mmol/L (137-145); Uric Acid 8.9 mg/dL (3.5-8.5)
[2021-07-19 15:56] LABS: Add Manual Diff / Slide Review NO; Basophils Absolute Auto 100 /uL (0-100); Basophils Percent Auto 1.2 % (0-2); Eosinophils Absolute Auto 400 /uL (0-450); Eosinophils Percent Auto 5.6 % (2-4); Hematocrit 33.3 % (41-53); Hemoglobin 11.4 g/dL (13.5-17.5); Lymphocytes Absolute Auto 2200 /uL (1100-4500); Lymphocytes Percent Auto 32.1 % (25-40); Mean Corpuscular HGB Conc 34.1 % (30-36); Mean Corpuscular Hemoglobin 31.8 PG (26-34); Mean Corpuscular Volume 93.3 fL (80-100); Monocytes Absolute Auto 500 /uL (0-900); Monocytes Percent Auto 6.7 % (3-14); Neutrophils Absolute Auto 3700 /uL (1500-7000); Neutrophils Percent Auto 54.4 % (50-75); Platelet Count 206 X10^3/uL (150-400); Red Blood Cell Count 3.57 X10^6/uL (4.5-5.9); White Blood Cell Count 6.8 X10^3/uL (4.5-11.0)
[2021-07-19 16:34] LABS: Creatinine Urine Random 104.1 mg/dL
[2021-07-19 16:39] LABS: Microalbumi Creatinin Ratio Ur 7.6 ug/mg CR (<30); Microalbumin Urine Random 0.8 mg/dL (0-1.6)
[2021-07-19 16:52] LABS: Vitamin D 25 Hydroxy (D3) 38.5 ng/mL (30.0-100.0)
[2021-07-20 05:37] LABS: Parathyroid Hormone Int 61 pg/mL (15-65)
== END ==
PROVIDERS: Internal Medicine Nephrology; PCP Family Medicine; Referring Provider Physician Assistant; Visit Provider Physician Assistant
DX: N18.32 Chronic kidney disease, stage 3b (principal)
CPT/HCPCS: 36415; 80048; 81015; 82043; 82306; 82570; 83735; 83970; 84100; 84550; 85025

== ENCOUNTER → 2021-09-19 13:37 | Outpatient (CLI) | payer MEDICARE, BC, SELFPAY ==
[2021-09-19 13:59] LABS: Add Manual Diff / Slide Review NO; Basophils Absolute Auto 100 /uL (0-100); Basophils Percent Auto 0.8 % (0-2); Eosinophils Absolute Auto 400 /uL (0-450); Eosinophils Percent Auto 5.8 % (2-4); Hematocrit 33.2 % (41-53); Hemoglobin 11.1 g/dL (13.5-17.5); Lymphocytes Absolute Auto 2100 /uL (1100-4500); Lymphocytes Percent Auto 31.1 % (25-40); Mean Corpuscular HGB Conc 33.5 % (30-36); Mean Corpuscular Hemoglobin 31.1 PG (26-34); Mean Corpuscular Volume 92.7 fL (80-100); Monocytes Absolute Auto 500 /uL (0-900); Monocytes Percent Auto 7.1 % (3-14); Neutrophils Absolute Auto 3700 /uL (1500-7000); Neutrophils Percent Auto 55.2 % (50-75); Platelet Count 194 X10^3/uL (150-400); Red Blood Cell Count 3.58 X10^6/uL (4.5-5.9); Red Cell Distribution Width 14.1 % (11.6-14.8); White Blood Cell Count 6.7 X10^3/uL (4.5-11.0)
[2021-09-19 14:18] LABS: BUN Creatinine Ratio 20.9 (6-22); Blood Urea Nitrogen 49 mg/dL (9-20); Carbon Dioxide 23 mmol/L (22-32); Chloride 104 mmol/L (98-107); Estimated Glomerular Filt Rate 27 mL/min (>60); Glucose 112 mg/dL (80-110); HEMOLYSIS < 15 (0-50); Magnesium 2.5 mg/dL (1.6-2.3); Phosphorous 4.2 mg/dL (2.3-3.7); Potassium 4.2 mmol/L (3.4-5.1); Sodium 138 mmol/L (137-145); Uric Acid 9.4 mg/dL (3.5-8.5)
[2021-09-19 17:07] LABS: Vitamin D 25 Hydroxy (D3) 46.6 ng/mL (30.0-100.0)
[2021-09-21 08:35] LABS: Parathyroid Hormone Int 65 pg/mL (15-65)
== END ==
PROVIDERS: PCP Family Medicine; Referring Provider Internal Medicine Nephrology; Visit Provider Internal Medicine Nephrology
DX: N18.4 Chronic kidney disease, stage 4 (severe) (principal)
CPT/HCPCS: 36415; 80048; 82306; 83735; 83970; 84100; 84550; 85025

== ENCOUNTER → 2021-12-10 07:41 | Outpatient (CLI) | payer MEDICARE, BC, SELFPAY ==
[2021-12-10 09:18] LABS: Add Manual Diff / Slide Review NO; Basophils Absolute Auto 100 /uL (0-100); Eosinophils Absolute Auto 500 /uL (0-450); Eosinophils Percent Auto 6.7 % (2-4); Hematocrit 34.8 % (41-53); Hemoglobin 11.7 g/dL (13.5-17.5); Lymphocytes Absolute Auto 1900 /uL (1100-4500); Lymphocytes Percent Auto 26.9 % (25-40); Mean Corpuscular HGB Conc 33.6 % (30-36); Mean Corpuscular Hemoglobin 31.4 PG (26-34); Mean Corpuscular Volume 93.4 fL (80-100); Monocytes Absolute Auto 400 /uL (0-900); Monocytes Percent Auto 5.7 % (3-14); Neutrophils Absolute Auto 4300 /uL (1500-7000); Neutrophils Percent Auto 59.7 % (50-75); Platelet Count 196 X10^3/uL (150-400); Red Blood Cell Count 3.72 X10^6/uL (4.5-5.9); Red Cell Distribution Width 14.4 % (11.6-14.8); White Blood Cell Count 7.2 X10^3/uL (4.5-11.0)
[2021-12-10 09:21] LABS: Hemoglobin A1C% w Est Avg Glu 5.9 % (4.0-6.0)
[2021-12-10 09:48] LABS: Alanine Aminotransferase 14 IU/L (<50); Albumin Globulin Ratio 1.3 (1.0-2.8); Alkaline Phosphatase 59 U/L (38-126); Aspartate Aminotransferase 23 IU/L (17-59); BUN Creatinine Ratio 19.4 (6-22); Bilirubin Total 0.7 mg/dL (0.2-1.3); Blood Urea Nitrogen 41 mg/dL (9-20); Calcium 9.5 mg/dL (8.4-10.2); Carbon Dioxide 22 mmol/L (22-32); Chloride 105 mmol/L (98-107); Estimated Glomerular Filt Rate 31 mL/min (>60); Globulin 3.1 g/dL (1.7-4.1); Glucose 106 mg/dL (80-110); HEMOLYSIS < 15 (0-50); Potassium 4.3 mmol/L (3.4-5.1); Sodium 139 mmol/L (137-145); Total Protein 7.1 g/dL (6.3-8.2)
== END ==
PROVIDERS: PCP Family Medicine; Referring Provider Family Medicine; Visit Provider Family Medicine
DX: R73.03 Prediabetes (principal)
CPT/HCPCS: 36415; 80053; 83036; 85025

== ENCOUNTER → 2021-12-24 09:45 | Outpatient (CLI) | payer MEDICARE, BC, SELFPAY ==
[2021-12-24 11:32] LABS: Add Manual Diff / Slide Review NO; Basophils Absolute Auto 100 /uL (0-100); Basophils Percent Auto 1.3 % (0-2); Eosinophils Absolute Auto 300 /uL (0-450); Eosinophils Percent Auto 4.5 % (2-4); Hematocrit 34.5 % (41-53); Hemoglobin 11.4 g/dL (13.5-17.5); Lymphocytes Absolute Auto 2000 /uL (1100-4500); Lymphocytes Percent Auto 27.1 % (25-40); Mean Corpuscular HGB Conc 33.1 % (30-36); Mean Corpuscular Hemoglobin 31.2 PG (26-34); Mean Corpuscular Volume 94.3 fL (80-100); Monocytes Absolute Auto 400 /uL (0-900); Monocytes Percent Auto 5.6 % (3-14); Neutrophils Absolute Auto 4400 /uL (1500-7000); Neutrophils Percent Auto 61.5 % (50-75); Platelet Count 200 X10^3/uL (150-400); Red Blood Cell Count 3.66 X10^6/uL (4.5-5.9); Red Cell Distribution Width 14.4 % (11.6-14.8); White Blood Cell Count 7.2 X10^3/uL (4.5-11.0)
[2021-12-24 11:47] LABS: BUN Creatinine Ratio 20.3 (6-22); Blood Urea Nitrogen 43 mg/dL (9-20); Calcium 9.2 mg/dL (8.4-10.2); Carbon Dioxide 27 mmol/L (22-32); Chloride 105 mmol/L (98-107); Estimated Glomerular Filt Rate 30 mL/min (>60); Glucose 108 mg/dL (80-110); HEMOLYSIS < 15 (0-50); Magnesium 2.3 mg/dL (1.6-2.3); Phosphorous 3.9 mg/dL (2.3-3.7); Potassium 4.3 mmol/L (3.4-5.1); Sodium 140 mmol/L (137-145); Uric Acid 8.8 mg/dL (3.5-8.5)
[2021-12-24 12:04] LABS: Vitamin D 25 Hydroxy (D3) 50.3 ng/mL (30.0-100.0)
[2021-12-24 14:57] LABS: Creatinine Urine Random 127.1 mg/dL
[2021-12-24 15:03] LABS: Microalbumi Creatinin Ratio Ur 9.4 ug/mg CR (<30); Microalbumin Urine Random 1.2 mg/dL (0-1.6)
[2021-12-26 06:36] LABS: Parathyroid Hormone Int 44 pg/mL (15-65)
== END ==
PROVIDERS: PCP Family Medicine; Referring Provider Internal Medicine Nephrology; Visit Provider Internal Medicine Nephrology
DX: N18.4 Chronic kidney disease, stage 4 (severe) (principal)
CPT/HCPCS: 36415; 80048; 82043; 82306; 82570; 83735; 83970; 84100; 84550; 85025

== ENCOUNTER → 2022-01-15 13:20 | Outpatient (CLI) | payer MEDICARE, BC, SELFPAY ==
[2022-01-15 15:41] LABS: Prostate Specific Antigen 0.281 ng/mL (0.10-4.00)
== END ==
PROVIDERS: PCP Family Medicine; Referring Provider Specialist; Visit Provider Specialist
DX: C61 Malignant neoplasm of prostate (principal); C79.51 Secondary malignant neoplasm of bone
CPT/HCPCS: 36415; 84153

== ENCOUNTER → 2022-03-20 13:06 | Outpatient (CLI) | payer MEDICARE, BC, SELFPAY ==
[2022-03-20 14:21] LABS: Add Manual Diff / Slide Review NO; Basophils Absolute Auto 100 /uL (0-100); Basophils Percent Auto 1.7 % (0-2); Eosinophils Absolute Auto 400 /uL (0-450); Eosinophils Percent Auto 5.3 % (2-4); Hemoglobin 11.7 g/dL (13.5-17.5); Lymphocytes Absolute Auto 2000 /uL (1100-4500); Lymphocytes Percent Auto 28.8 % (25-40); Mean Corpuscular HGB Conc 33.5 % (30-36); Mean Corpuscular Hemoglobin 31.7 PG (26-34); Mean Corpuscular Volume 94.6 fL (80-100); Monocytes Absolute Auto 600 /uL (0-900); Monocytes Percent Auto 8.5 % (3-14); Neutrophils Absolute Auto 3900 /uL (1500-7000); Neutrophils Percent Auto 55.7 % (50-75); Platelet Count 188 X10^3/uL (150-400); Red Cell Distribution Width 14.9 % (11.6-14.8)
[2022-03-20 14:35] LABS: BUN Creatinine Ratio 22.2 (6-22); Blood Urea Nitrogen 41 mg/dL (9-20); Calcium 8.9 mg/dL (8.4-10.2); Carbon Dioxide 25 mmol/L (22-32); Chloride 102 mmol/L (98-107); Estimated Glomerular Filt Rate 36 mL/min (>60); Glucose 93 mg/dL (80-110); HEMOLYSIS < 15 (0-50); Magnesium 2.1 mg/dL (1.6-2.3); Potassium 4.2 mmol/L (3.4-5.1); Sodium 139 mmol/L (137-145); Uric Acid 8.1 mg/dL (3.5-8.5)
[2022-03-20 15:41] LABS: Vitamin D 25 Hydroxy (D3) 46.4 ng/mL (30.0-100.0)
[2022-03-22 07:23] LABS: Parathyroid Hormone Int 60 pg/mL (15-65)
== END ==
PROVIDERS: PCP Family Medicine; Referring Provider Internal Medicine Nephrology; Visit Provider Internal Medicine Nephrology
DX: N18.32 Chronic kidney disease, stage 3b (principal)
CPT/HCPCS: 36415; 80048; 82306; 83735; 83970; 84100; 84550; 85025

== ENCOUNTER → 2022-06-13 08:02 | Outpatient (CLI) | payer MEDICARE, BC, SELFPAY ==
[2022-06-13 08:52] LABS: Add Manual Diff / Slide Review NO; Basophils Absolute Auto 100 /uL (0-100); Basophils Percent Auto 0.9 % (0-2); Eosinophils Absolute Auto 500 /uL (0-450); Eosinophils Percent Auto 7.1 % (2-4); Hematocrit 34.8 % (41-53); Hemoglobin 11.8 g/dL (13.5-17.5); Lymphocytes Absolute Auto 2100 /uL (1100-4500); Lymphocytes Percent Auto 27.4 % (25-40); Mean Corpuscular HGB Conc 33.9 % (30-36); Mean Corpuscular Hemoglobin 31.6 PG (26-34); Mean Corpuscular Volume 93.2 fL (80-100); Monocytes Absolute Auto 400 /uL (0-900); Neutrophils Absolute Auto 4500 /uL (1500-7000); Neutrophils Percent Auto 59.6 % (50-75); Platelet Count 196 X10^3/uL (150-400); Red Blood Cell Count 3.74 X10^6/uL (4.5-5.9); Red Cell Distribution Width 14.1 % (11.6-14.8); White Blood Cell Count 7.6 X10^3/uL (4.5-11.0)
[2022-06-13 09:09] LABS: BUN Creatinine Ratio 18.6 (6-22); Blood Urea Nitrogen 34 mg/dL (9-20); Calcium 9.3 mg/dL (8.4-10.2); Carbon Dioxide 22 mmol/L (22-32); Chloride 106 mmol/L (98-107); Estimated Glomerular Filt Rate 36 mL/min (>60); Glucose 103 mg/dL (80-110); HEMOLYSIS < 15 (0-50); Magnesium 2.2 mg/dL (1.6-2.3); Potassium 4.2 mmol/L (3.4-5.1); Sodium 139 mmol/L (137-145)
== END ==
PROVIDERS: PCP Family Medicine; Referring Provider Internal Medicine Nephrology; Visit Provider Internal Medicine Nephrology
DX: N18.32 Chronic kidney disease, stage 3b (principal)
CPT/HCPCS: 36415; 80048; 82040; 83735; 84100; 85025

== ENCOUNTER → 2022-07-03 13:21 | Outpatient (CLI) | payer MEDICARE, BC, SELFPAY ==
[2022-07-03 15:24] LABS: BUN Creatinine Ratio 20.6 (6-22); Blood Urea Nitrogen 42 mg/dL (9-20); Calcium 9.3 mg/dL (8.4-10.2); Carbon Dioxide 24 mmol/L (22-32); Chloride 102 mmol/L (98-107); Estimated Glomerular Filt Rate 32 mL/min (>60); Glucose 88 mg/dL (80-110); HEMOLYSIS < 15 (0-50); Magnesium 2.2 mg/dL (1.6-2.3); Potassium 4.3 mmol/L (3.4-5.1); Sodium 137 mmol/L (137-145)
== END ==
PROVIDERS: PCP Family Medicine; Referring Provider Internal Medicine Nephrology; Visit Provider Internal Medicine Nephrology
DX: N18.32 Chronic kidney disease, stage 3b (principal)
CPT/HCPCS: 36415; 80048; 83735